=== PATIENT | female | born 1935 | race African-American/Black ===

== ENCOUNTER 2017-10-10 08:52 | Inpatient (IN) | payer MEDICARE, MEDICAID ==
[2017-10-10 09:06] LABS: #Basophils 0.1 thou/uL (0.0-0.2); #Eosinphils 0.4 thou/uL (0.0-0.7); #Lymphocytes 2.3 thou/uL (1.20-3.40); #Monocytes 0.9 thou/uL (0.11-0.59); #Neutrophils 5.4 thou/uL (1.40-6.50); %Basophils 0.7 % (0.0-1.0); %Eosinophils 4.1 % (0.0-10.0); %Lymphocytes 25.6 % (21.0-51.0); %Monocytes 9.6 % (0.0-10.0); Hemoglobin 12.5 g/dL (12.0-16.0); Mean Corpuscular HGB CONC 32.6 g/dL (32.0-36.0); Mean Corpuscular Hemoglobin 31.6 pg (27.0-31.0); Mean Corpuscular Volume 96.9 fl (81.0-99.0); Platelet Count 227 thou/uL (130-400); RBC Distribution Width 12.2 % (11.5-14.5); Red Blood Cell (RBC) Count 3.96 mill/uL (4.20-5.40)
[2017-10-10 09:15] LABS: INR-International Normal Ratio 1.1; PTT 27.9 SEC (22.9-36.1)
[2017-10-10] MEDS ORDERED: Lorazepam 2 MG/ML VIAL ONE ×2 (09:15→09:22)
[2017-10-10 09:20] LABS: ALT (SGPT) 7 U/L (8-55); AST (SGOT) 13 U/L (5-34); Alkaline Phosphatase 57 U/L (40-150); Anion Gap 13 mmol/L (10-20); BUN (Urea Nitrogen) 10 mg/dL (9.8-20.1); Bilirubin, Total 0.6 mg/dL (0.2-1.2); Calc. Creatinine Clearance 0 mL/min (70-130); Calcium 9.5 mg/dL (7.8-10.44); Carbon Dioxide 25 mmol/L (23-31); Chloride 104 mmol/L (98-107); Estimated GFR-MDRD 72; Globulin 2.8 g/dL (2.4-3.5); Glucose 104 mg/dL (83-110); Potassium 4.5 mmol/L (3.5-5.1); Protein, Total 6.8 g/dL (6.0-8.3); Sodium 137 mmol/L (136-145)
--- NOTE | 2017-10-10 09:21 | CT ---
CT HEAD NONCONTRAST: History: Altered mental status. Comparison: 02-06-16 FINDINGS: There is no evidence of acute intracranial hemorrhage or infarct. Large area of encephalomalacia thro ughout the right frontal and temporal lobes is similar in appearance to the previous exam. Chronic is chemic small vessel disease and prominent diffuse cortical atrophy are again demonstrated. There is d ystrophic calcification at each basal ganglia. No mass effect or shift of midline structures. Visuali zed paranasal sinuses remain well aerated. 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 No acute intracranial abnorma lities are demonstrated on noncontrast CT head. Findings were called to Dr. Arce in the Emergency Department at 0901 hours. Code CR POS: LOIDA
[2017-10-10 09:24] LABS: CKMB 5.7 ng/mL (0-6.6); Troponin I 0.026 ng/mL (< 0.028)
[2017-10-10] MEDS ORDERED: Propofol 1,000 MG/100 ML VIAL IV ONE (09:24)
[2017-10-10 09:48] LABS: Actual Bicarbonate (HCO3a) 23.6 mEq/L (22-26); Base Excess (BEa) -0.8 mEq/L (0 (+/-) 2.5); CO2 Tension 37.9 mmHg (35.0-45.0); Hemoglobin (Hb) 12.4 g/dL (12.0-16.0); pH, Arterial 7.41 (7.35-7.45)
[2017-10-10 09:49] LABS: ALV-art Gradient 91.825 (0-20); Analyzer IN Cardio ER; Calcium, Ionized 1.2 mmol/L (1.12-1.30); Puncture Site LBA
--- NOTE | 2017-10-10 11:21 | CT ---
CT ANGIOGRAM OF THE HEAD WITH CONTRAST CT ANGIOGRAM OF THE NECK WITH CONTRAST: HISTORY: Altered mental status and seizures in 82 year old female. TECHNIQUE: IV injection of 100 mL of Isovue 370. Arterial bolus chasing technique scan performed from aortopulmonic window to vertex of head. Coronal and sagittal 3D MIP reconstructions. The patient was scanned in the RPO right lateral decubitus position. Furthermore, according to the C T technologist, the only IV access available was a right external jugular vein catheter, which was po wer injected, resulting in rupture of that external jugular vein, resulting in a large collection of extravasated contrast media within the soft tissues of the right neck. The injection and the study o ccurred prior to any radiologists' knowledge of this case. Coronal and sagittal 3D MIP reconstructio ns. Dr. Salinas reported this STAT stroke activation CTA result to Dr. Ashlie Arce at approximately 9:38 a.m. on 10/10/17. FINDINGS: There is a large collection of very dense extravasated contrast material in the soft tissues of the r ight neck, centered around the right sternocleidomastoid muscle. This causes severe streak artifact. The great vessels are tortuous. AORTIC ARCH: No aneurysm or dissection. BRACHIOCEPHALIC: No high-grade stenosis. RIGHT SUBCLAVIAN: Proximal portion is patent. Difficult to evaluate the mid portion because of severe streak artifact from the adjacent extravasated contrast bolus I the soft tissues of the right neck. There is one par ticular image that shows a central filling defect that is suggestive of a small thrombus, but this is uncertain. LEFT SUBCLAVIAN: No high-grade stenosis. RIGHT COMMON CAROTID: No high-grade stenosis. LEFT COMMON CAROTID: No high-grade stenosis. RIGHT INTERNAL CAROTID: Total occlusion a few millimeters distal to its origin. Heavy calcifications slightly distal to this occlusion. More distally, there is faint contrast in the right carotid siphon due to retrograde flow from collat eral flow via the [place]. LEFT INTERNAL CAROTID: No high-grade stenosis. The lumen of the carotid siphons is difficult to evaluate because of the surrounding dense, heavy ath erosclerotic calcifications. There is very little contrast material in the right carotid siphon, but there is good contrast opacification of the left carotid siphon. The bilateral A2 segments of the a nterior cerebral arteries are within normal limits in caliber. There is a patent anterior communicat ing artery. The A2 segment of the right anterior cerebral artery is diffusely narrower in caliber co mpared to the left A1 segment. The same is true of the right M1 segment and its branches compared to the contralateral left, of the middle cerebral arteries. There is a large old right frontotemporoparietal region of encephalomalacia and gliosis representing a large old infarction. The proximal branches of the bilateral middle cerebral arteries appear to be grossly currently patent. The right vertebral artery is dominant over the left. There is heavily c alcified plaque at the origin of the right vertebral artery, probably causing severe stenosis. The r ight vertebral artery is dominant. The left vertebral artery is slightly diminutive. Heavily calcif ied plaque at the proximal intracranial portion of the left vertebral causing high-grade stenosis. No high-grade focal short-segment acquired stenosis identified involving the bilateral posterior cere bral arteries. IMPRESSION: 1. Extravasation of much of the injected contrast material (from right external jugular vein cathete r) in the superficial soft tissues of the right neck. 2. Chronic occlusion of the right internal carotid artery a short distance from its origin. 3. The right anterior circulation is supplied via collateral flow from the contralateral left [place] via a patent anterior communicating artery. 4. Large old right cerebral infarction in the right middle cerebral artery territory. 5. Severe stenosis at origin of right vertebral artery and at proximal intracranial segment of left vertebral artery. POS: LOIDA
--- NOTE | 2017-10-10 13:20 | RAD ---
RADIOGRAPH CHEST 1 VIEW: Date: 10-10-17 Time: 12:19 P.M. HISTORY: 82-year-old female found unresponsive, status post intubation. COMPARISON: The most recent chest radiograph is from 06-05-15. FINDINGS: Again noted are the signs of previous CABG. An endotracheal tube has now been placed, with distal tip 1.5 cm superior to the indio, directed at the right main stem bronchus. NG tube has been placed whi ch travels inferior to the diaphragm, distal tip outside of the field of view. The lungs remain bilat erally clear. No pulmonary edema. No pneumothorax. IMPRESSION: 1. Status post intubation with endotracheal tube in the lower thoracic trachea. 2. Nasogastric tube placement. 3. No acute cardiopulmonary findings. 4. Status post coronary artery bypass graft surgery. TRESA POS: LOIDA
--- NOTE | 2017-10-10 13:51 | PDOC.FPRHP ---
- History of Present Illness Chief Complaint: AMS History of Present Illness: 82 y/o w PMHx of CAD s/p CABG and CVA w residual L sided deficits who presents from [facility] due to AMS. Per [facility] report she was found with decreased responsiveness and was responsive only to pain so she was brought to the ED. Per the patient's daughter, she had a phone call with one of her daughters this AM around 6:30 and was acting completely normal. Her baseline mental status is A&Ox4. She had multiple seizures in the ED that were described as her deviating her body to left associated with twitching. These were terminated with ativan. The patient continued drooling and not protecting her airway and so she was intubated in the ED. ED Course: The pt was evaluated in the ED by Dr. Arce and was given ativan 1mg x2 for seizures, intubated due to patient not protecting her airway, given rocuronium 50mg x2, etomidate 10mg, propofol 40mg, and put on propofol gtt. The patient had multiple IV's that infiltrated and a central line was attempted , but was unsuccessful in the L and R IJ. Access was obtained in the ED via IO in the L arm. - Allergies/Adverse Reactions Allergies Allergy/AdvReac Type Severity Reaction Status Date / Time No Known Allergies Allergy Verified 01/17/14 21:52 - Home Medications Medication Instructions Recorded Confirmed Type Nitroglycerin [Nitrostat] 0.4 mg SL ASDIR PRN 02/21/13 01/17/14 History Potassium Chloride [K-Dur] 20 meq PO DAILY 02/21/13 01/17/14 History traMADol HCl [Ultram] 1 - 2 tab PO Q6H PRN #30 tab 02/21/13 01/17/14 Rx Aspirin [Aspirin EC] 81 mg PO DAILY 03/12/13 01/17/14 History Cyanocobalamin (Vitamin B-12) 500 mcg PO DAILY 03/12/13 01/17/14 History [B-12] Insulin Glargine [Lantus Vial] 15 units SC HS 03/12/13 01/17/14 History Trihexyphenidyl [Artane] 2 mg PO TID 03/12/13 01/17/14 History Simvastatin [Zocor] 40 mg PO HS #0 tab 03/17/13 01/17/14 Rx Aluminum & Magnesium Hydroxide 30 ml PO Q6H PRN 05/27/13 01/17/14 History [Maalox] Furosemide [Lasix] 40 mg PO DAILY #0 11/14/13 01/17/14 Rx Cholecalciferol (Vitamin D3) 5,000 unit PO DAILY 01/05/14 01/17/14 History [Vitamin D] HYDROcodone Bit/APAP 5/325 [[place]] 1 - 2 tab PO Q4HR PRN 01/05/14 01/17/14 History Isosorbide Mononitrate [Imdur] 60 mg PO DAILY #0 tab 01/08/14 01/17/14 Rx Lidocaine 5% Patch [Lidoderm 5% 1 patch TD 1800 #0 patch 01/23/14 Rx Patch] cloNIDine [Catapres] 0.1 mg PO BID #0 tab 01/23/14 Rx cloNIDine [Catapres] 0.1 mg PO Q4H PRN #0 tab 01/23/14 Rx hydrALAZINE [Apresoline] 75 mg PO TID #0 tab 01/23/14 Rx sitaGLIPtin Phosphate [Januvia] 50 mg PO DAILY #0 01/23/14 01/17/14 Rx - History PMHx: 1. 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 HFpEF 3. CKD 3 4. DM2 5. CAD s/p CABG in 1996 6. HLD 7. HTN 8. Anemia 9. Glaucoma 10. Depression PSHx: 1. CABG 1996 2. Hysterectomy 3. Cholecystectomy 4. Appendectomy 5. Carotid Endarterectomy 6. L kneecap repair x2 7. Bilateral TKR 8. Cataract sx FHx: DM on maternal side, Heart disease on paternal side Social: Resides at [facility], No tobacco, EtOH, or drug use. - Review of Systems ROS unobtainable: due to endotracheal tube - Vital signs BP: 166/104 HR: 73 RR: 15 Tmax: 99.5 Pox: 100% on Ventilator Wt: 60kg - Physical Exam -Constitutional: Intubated and mechanically ventilated on sedation -HEENT: Normocephalic, atraumatic, Bilateral conjunctival injection, PERRL, MMM, ET tube in place in the mouth Neck: trachea midline, no LAD, no bruits -Heart: RRR, 2/6 systolic murmur, no peripheral edema, 2+ radial and pedal pulses Lungs: CTAB (on ventilator), good air movement, no rales/rhonchi, no wheezing Abdomen: soft, non-tender, bowel sounds present, no masses/distention -Musculoskeletal: contracture of LUE, decreased muscle tone bilaterally -Neurological: unable to fully assess due to intubated on sedation Skin: good turgor, capillary refill <2 seconds FMR H&P: Results - Labs Result Diagrams: 10/10/17 08:57 10/10/17 08:57 Lab results: WBC 9.0 thou/uL (4.8-10.8) 10/10/17 08:57 Hgb 12.5 g/dL (12.0-16.0) 10/10/17 08:57 Hct 38.4 % (36.0-47.0) 10/10/17 08:57 MCV 96.9 fl (81.0-99.0) 10/10/17 08:57 Plt Count 227 thou/uL (130-400) 10/10/17 08:57 Neutrophils % 60.0 % (42.0-75.0) 10/10/17 08:57 ABG pH 7.41 (7.35-7.45) 10/10/17 09:45 ABG pCO2 37.9 mmHg (35.0-45.0) 10/10/17 09:45 ABG pO2 146.0 mmHg (80.0-100.0) H 10/10/17 09:45 Sodium 137 mmol/L (136-145) 10/10/17 08:57 Potassium 4.5 mmol/L (3.5-5.1) 10/10/17 08:57 Chloride 104 mmol/L (98-107) 10/10/17 08:57 Carbon Dioxide 25 mmol/L (23-31) 10/10/17 08:57 BUN 10 mg/dL (9.8-20.1) 10/10/17 08:57 Creatinine 0.90 mg/dL (0.6-1.1) 10/10/17 08:57 Glucose 104 mg/dL (83-110) 10/10/17 08:57 Calcium 9.5 mg/dL (7.8-10.44) 10/10/17 08:57 Total Bilirubin 0.6 mg/dL (0.2-1.2) 10/10/17 08:57 AST 13 U/L (5-34) 10/10/17 08:57 ALT 7 U/L (8-55) L 10/10/17 08:57 Alkaline Phosphatase 57 U/L (40-150) 10/10/17 08:57 CK-MB (CK-2) 5.7 ng/mL (0-6.6) 10/10/17 08:57 Serum Total Protein 6.8 g/dL (6.0-8.3) 10/10/17 08:57 Albumin 4.0 g/dL (3.4-4.8) 10/10/17 08:57 - EKG Interpretation EKG: NSR, with occasional PVC - Radiology Interpretation CT scan - head Status: report reviewed by me Additional comment: Old large R MCA infarct seen along with chronic changes. No acute intracranial hemorrhage or infarct noted. Chest x-ray Status: report reviewed by me Additional comment: No acute cardiopulmonary findings, ET tube, NG tube in place FMR H&P: A/P - Problem List (1) Encephalopathy Current Visit: Yes Status: Acute Code(s): G93.40 - ENCEPHALOPATHY, UNSPECIFIED (2) Seizure Current Visit: Yes Status: Acute Code(s): R56.9 - UNSPECIFIED CONVULSIONS (3) Hypertensive emergency Current Visit: Yes Status: Acute Code(s): I16.1 - HYPERTENSIVE EMERGENCY (4) UTI (urinary tract infection) Current Visit: Yes Status: Acute Qualifiers: Urinary tract infection type: acute cystitis Hematuria presence: without hematuria Qualified Code(s): N30.00 - Acute cystitis without hematuria (5) H/O: CVA (cerebrovascular accident) Current Visit: Yes Status: Acute Code(s): Z86.73 - PRSNL HX OF TIA (TIA), AND CEREB INFRC W/O RESID DEFICITS (6) HTN (hypertension) Current Visit: Yes Status: Acute Code(s): I10 - ESSENTIAL (PRIMARY) HYPERTENSION Qualifiers: Hypertension type: essential hypertension Qualified Code(s): I10 - Essential (primary) hypertension (7) HLD (hyperlipidemia) Current Visit: Yes Status: Acute Code(s): E78.5 - HYPERLIPIDEMIA, UNSPECIFIED (8) DM2 (diabetes mellitus, type 2) Current Visit: Yes Status: Acute Qualifiers: Diabetes mellitus regional intermodal truck driver insulin use: with regional intermodal truck driver use Diabetes mellitus complication status: with unspecified complications Qualified Code(s) : E11.8 - Type 2 diabetes mellitus with unspecified complications; Z79.4 - regional intermodal truck driver (current) use of insulin; Z79.4 - regional intermodal truck driver (current) use of insulin; Z79.4 - custodial (current) use of insulin; Z79.4 - custodial (current) use of insulin (9) CAD (coronary artery disease), [place] coronary artery Current Visit: Yes Status: Acute Code(s): I25.10 - ATHSCL HEART DISEASE OF [place] CORONARY ARTERY W/O ANG PCTRS Qualifiers: [place] vs. transplanted heart: [place] heart Associated angina: angina presence unspecified Qualified Code(s): I25.10 - Atherosclerotic heart disease of [place] coronary artery without angina pectoris (10) (HFpEF) heart failure with preserved ejection fraction Current Visit: Yes Status: Acute Code(s): I50.30 - UNSPECIFIED DIASTOLIC ( CONGESTIVE) HEART FAILURE - Plan Encephalopathy Suspect CVA as the cause. Other differential diagnoses include UTI, HTN Emergency. Patient presented with AMS. Per [facility] report she was found responsive only to pain. The ED reported that she was awake, but with left sided neglect and deviation of the eyes to the L as well as non-verbal with drooling. She had multiple seizures while in the ED requiring ativan. The patient has an OOH DNR signed, however, this was not sent over from the NH. The ED made multiple attempts to get in touch with the NH to get paperwork sent over, but were unable , so the patient was intubated in the ED due to failure to protect her airway. The daughter came in later and had a discussion with palliative care, and the decision was made to consider extubating her tomorrow once her other children arrived. -Continue mechanical ventilation overnight -Sedation with propofol -The patient has poor IV access at this time and so will have nurses in the unit attempt to get a midline -The option of an MRI was discussed with the daughter, but she elected not to get it at this time as it would not exchange teller -Aspirin for concern for CVA -Pulm has been consulted, appreciate recs HTN Emergency BP was initially elevated with the highest recorded BP in the ED being 270/159. It remained persistently elevated. The patient was started on a cardene gtt for just a few minutes once she got IV access and her BP dropped very quickly to 96/61. The cardene was stopped at that point. -Monitor BP closely -Hold cardene gtt at this time Seizures The patient had multiple seizures while in the ED that were treated with ativan. She had no h/o seizure d/o. -Ativan prn seizures -Kera Acute UTI UA showed 4+ bacteria and nitrites. Patient is baseline incontinent. -Rocephin day 1 -Urine cx and sensitivities h/o CVA Patient has had multiple CVA's with residual L sided deficits. -Aspirin HLD -Restart home meds once taking PO CAD -Aspirin DM2 -SSI -Accuchecks q6h -Will hold home lantus as pt is NPO at this time HFpEF -Will avoid overloading pt. No fluids needed at this time. VTE ppx: Lovenox Code Status: DNR Disposition/LOS: Admit to CCU, length of stay likely greater than 2 days FMR H&P: Upper Level - Pertinent history 82 yo female with history of CAD, carotid endarterectomy, CVA with residual left hemiparesis, HTN, presented from [facility] with altered mentation. Normally she is AAOx4 when she was found this morning only responsive to pain. In the ER she had multiple seizures and was given ativan 1mg twice. There was concern for airway protection so she was intubated. Venous access was difficult to obtain so IO to left humerus was obtained. - Pertinent findings Resp: intubated, CTAb Card: RRR, S1, S2, no murmur Ext: L arm IO, mild tremor of right hand and foot - Plan Date/Time: 10/10/17 1345 IJulian DO, have evaluated this patient and agree with findings/plan as outlined by pharmacy intern resident. Pertinent changes/additions are listed here. 1. HTN emergency with suspected CVA peripheral access was obtained in ER before move to the floor, will start cardene drip for BP control <180SBP negative CT brain discuss with family goals of care to determine the need for further evaluation Admit to CCU 2. Hx CVA with residual left hemiparesis 3. Hx CABG 4. HTN systolic in the 200s, cardene drip 5. CKD III continue to monitor, stable at this time 6. DM2 continue to monitor with goal glucose of 140-180 7. pEFHF Attending Addendum - Attending Addendum Date/Time: 10/10/17 1608 I personally evaluated the patient and discussed the management with Drs. Dhaliwal and Shukri. I agree with the History, Examination, Assessment and Plan documented above with any addition or exceptions noted below. Discussed care plan with daughter who is present. We will delay extubation until other family is present. IV antibiotics initiated for UTI. BP is controlled now. CT did not demonstrate cerebral mass or hemorrhage. Suspect an ischemic CVA.
[2017-10-10 14:12] LABS: Bilirubin Negative (Negative); Blood, Urine Small (Negative); Clarity CLOUDY (Clear); Glucose, Urine (Dipstick) Negative (Negative); Leukocyte Negative (Negative); Nitrite Positive (Negative); Protein, Urine (Dipstick) Negative (Neg-Trace); Specific Gravity, Urine 1.016 (1.002-1.036); Urobilinogen 0.2 mg/dL (0.2-1.0); pH, Urine 7.5 (5.0-9.0)
[2017-10-10 14:23] LABS: Bacteria/HPF 4+ HPF (None Seen); Hyaline Casts/LPF 0-3 HYALINE CAST LPF (0-3 Hyaline); Pathc Cast-AUWi Flag 0.29 (0-2.49); RBC/HPF 0-3 HPF (0-3); Squamous Epithelial 0-3 HPF (0-3); WBC/HPF 0-3 HPF (0-3)
[2017-10-10] MEDS ORDERED: ISOVUE-370 76%-LOCM 1 ML ONE (14:47)
[2017-10-10] MEDS ORDERED: Lorazepam 2 MG/ML VIAL SLOW IVP PRN ×2 (15:21→15:49)
[2017-10-10] MEDS ORDERED: Dextrose 5% in Water 1,000 ML IV PRN (15:21)
[2017-10-10] MEDS ORDERED: Dextrose 50% Abboject 50 ML SYRINGE SLOW IVP PRN (15:21)
[2017-10-10] MEDS ORDERED: Ventilator Sedation Protocol 1 EACH FS ONE (15:21)
[2017-10-10] MEDS ORDERED: HumaLOG 300 UNITS/3 ML VIAL SC PRN (15:21)
[2017-10-10] MEDS ORDERED: cefTRIAXone\\ROCEPHIN 1 GM in Sodium Chloride 0.9% 100 ML IVPB SCH (15:30)
[2017-10-10 15:45] VITALS: BMI 20.5
[2017-10-10] MEDS ORDERED: Labetalol HCl 100 MG/20 ML VIAL SLOW IVP PRN (15:48)
[2017-10-10] MEDS ORDERED: fentaNYL Citrate/PF 2,000 MCG in Sodium Chloride 0.9% 60 ML IV SCH (15:49)
[2017-10-10] MEDS ORDERED: Morphine 4 MG/ML VIAL SLOW IVP PRN (15:49)
[2017-10-10] MEDS ORDERED: Propofol BOLUS 1,000 MG/100 ML VIAL IV PRN (15:49)
[2017-10-10] MEDS ORDERED: Fentanyl BOLUS 250 ML IVPB PRN (15:49)
[2017-10-10] MEDS ORDERED: Propofol 1,000 MG/100 ML VIAL IV PRN (15:49)
[2017-10-10] MEDS ORDERED: Prevnar 13-Val Conj/PF 0.5 ML SYRINGE IM ONE (16:00)
[2017-10-10] MEDS: cefTRIAXone\\ROCEPHIN 1 GM, Syringe 0.4 ML in Sterile Water 9.6 ML SLOW IVP SCH (16:19)
[2017-10-10] MEDS ORDERED: hydrALAZINE 25 MG TAB PO SCH (16:45)
[2017-10-10] MEDS ORDERED: cloNIDine 0.1 MG TAB PO SCH (16:45)
[2017-10-10] MEDS: Sodium Chloride 0.9% 1,000 ML IV SCH (18:36)
--- NOTE | 2017-10-10 21:26 | CON ---
DATE OF CONSULTATION: 10/10/2017 HISTORY OF PRESENT ILLNESS: An 82-year-old female brought to the ER via longterm with acute ment al status change, hypertensive, and seizures. She was seen by the ER physician, Dr. Arce, who ap parently gave her Ativan to control the seizures. When she got further encephalopathic difficulty breathing, she was intubated 40 of propofol, etomidat e 10 mg, paralytic, fentanyl and 5 mg of Cardene was given. After she was intubated, the doctor dana roth and the family arrives, she is at DO NOT INTUBATION and now is a DNR. I am told to attempt to put a central line in multiple times to make one successful. She is now in t he ICU on the vent, intubated with a 7.5 tube which appears to be sitting at the level of the ind[place] or just proximal right main stem bronchus. This is going to be pulled back. There is no family memb ers present at the bedside. She has been in and out here multiple times. To note, additional inform ation we get from the longterm is that the patient has previous right-sided cerebrovascular accid ent with left-sided hemiparesis. In fact, a CT of the head done did show an old infarct distribution of the right middle cerebral circulation. She had a CT angio of the neck done, which shows evidence of a right internal carotid artery occlusion. Otherwise, no other high grade stenosis was seen. It is unclear at this time her level of activity. PAST MEDICAL HISTORY: Pertinent for coronary artery disease, history of CVA, hypertension, diabetes, GI bleed, anemia. PAST SURGICAL HISTORY: Left carotid surgery, hysterectomy, appendix, gallbladder, CABG, cataract, an d multiple knee surgeries. MEDICATIONS: From the longterm has included a long list of medicine including aspirin, Lasix 40, hydrocodone, Lantus 15 units, Imdur 60, nitroglycerin p.r.n., Zocor 40, Catapres 0.1 twice a day, hy dralazine 75 three times a day, Januvia 50 a day, p.r.n. pain medicine. ALLERGIES: None. SOCIAL HISTORY: Tobacco never smoked. She has apparently had immunization for substance abuse. REVIEW OF SYSTEMS: Unobtainable. PHYSICAL EXAMINATION: VITAL SIGNS: Sats are 94, pulse 86, blood pressure 130/75, respiration rate 16. NEUROLOGIC: She is encephalopathic. She moves her right side, not the left side. CHEST: Decreased breath sounds, no wheezing. CARDIAC: Normal S1, S2, no gallops. ABDOMEN: Soft. NEUROLOGIC: As noted. EXTREMITIES: No edema. LABORATORY DATA: White count is 9000, H and H 12 and 38, platelet count 227, PO2 was 140, pCO2 . Electrolytes are normal. Chest x-ray was unremarkable. No pneumothorax was seen. IMPRESSION: 1. New onset seizure activity, receiving Ativan. 2. Previous cerebrovascular accident with left hemiparesis. 3. Hypertension. 4. Coronary artery disease. 5. Advanced age. 6. DO NOT RESUSCITATE. PLAN: She truly was seizing multiple times. I may initiate Keppra 5 mg twice a day. Otherwise, sup portive care. We will try and wean when family arrives. Control blood pressure, supportive care. Continue home medication. Forty-five minutes critical care time.
[2017-10-10] MEDS: Famotidine 40 MG/4 ML VIAL SLOW IVP SCH (21:59)
[2017-10-10] MEDS: hydrALAZINE 25 MG TAB PO SCH (22:21)
[2017-10-10] MEDS: cloNIDine 0.1 MG TAB PO SCH (22:21)
[2017-10-11] MEDS: Dextrose 50% Abboject 50 ML SYRINGE SLOW IVP PRN ×2 (01:52→06:36)
[2017-10-11 05:35] LABS: Anion Gap 11 mmol/L (10-20); BUN (Urea Nitrogen) 8 mg/dL (9.8-20.1); Calc. Creatinine Clearance 56 mL/min (70-130); Calcium 8.7 mg/dL (7.8-10.44); Carbon Dioxide 24 mmol/L (23-31); Chloride 106 mmol/L (98-107); Estimated GFR-MDRD Greater than 90; Glucose 70 mg/dL (83-110); Potassium 3.8 mmol/L (3.5-5.1); Sodium 137 mmol/L (136-145)
[2017-10-11 05:48] LABS: #Basophils 0.1 thou/uL (0.0-0.2); #Eosinphils 0.1 thou/uL (0.0-0.7); #Lymphocytes 1.9 thou/uL (1.20-3.40); #Monocytes 0.8 thou/uL (0.11-0.59); #Neutrophils 7.4 thou/uL (1.40-6.50); %Basophils 0.6 % (0.0-1.0); %Eosinophils 1.3 % (0.0-10.0); %Lymphocytes 18.4 % (21.0-51.0); %Monocytes 7.4 % (0.0-10.0); %Neutrophils 72.4 % (42.0-75.0); Hemoglobin 11.6 g/dL (12.0-16.0); Mean Corpuscular HGB CONC 33.5 g/dL (32.0-36.0); Mean Corpuscular Hemoglobin 32.7 pg (27.0-31.0); Mean Corpuscular Volume 97.6 fl (81.0-99.0); Mean Platelet Volume 9.4 fL (7.4-10.4); Platelet Count 251 thou/uL (130-400); RBC Distribution Width 12.5 % (11.5-14.5); Red Blood Cell (RBC) Count 3.55 mill/uL (4.20-5.40); White Blood Cell (WBC) Count 10.2 thou/uL (4.8-10.8)
[2017-10-11] MEDS: Enoxaparin Sodium 40 MG/0.4 ML SYRINGE SC SCH (08:58)
[2017-10-11] MEDS ORDERED: Aspirin 300 MG Suppository PR SCH (09:00)
--- NOTE | 2017-10-11 09:01 | PDOC.FM ---
- Subjective Subjective: Patient was moved to the floor overnight. Patient is able to talk this morning and oriented to month, but mostly is asking to move on to her side to sleep. - Objective MAR Reviewed: Yes Vital Signs & Weight: Vital Signs (12 hours) Temp Pulse Resp BP Pulse Ox 10/11/17 08:00 98.5 F 73 16 97 10/11/17 07:28 98.5 F 73 16 140/87 97 10/11/17 03:50 99.3 F 78 18 108/69 99 10/10/17 23:05 98.8 F 71 18 96 10/10/17 23:00 98.8 F 71 18 118/62 96 Weight Weight 61.1 kg Most Recent Monitor Data Heart Rate from ECG 79 NIBP 112/79 NIBP BP-Mean 84 Respiration from ECG 17 SpO2 98 I&O: 10/10/17 10/11/17 10/12/17 06:59 06:59 06:59 Intake Total 312 Output Total 1840 Balance -1528 Result Diagrams: 10/11/17 05:11 10/11/17 05:11 <Julian Watt M - Last Filed: 10/11/17 08:59> - Objective Vital Signs & Weight: Vital Signs (12 hours) Temp Pulse Resp BP Pulse Ox 10/11/17 11:27 98.2 F 70 18 123/58 L 99 10/11/17 08:00 98.5 F 73 16 97 10/11/17 07:28 98.5 F 73 16 140/87 97 10/11/17 03:50 99.3 F 78 18 108/69 99 Weight Weight 61.1 kg Most Recent Monitor Data Heart Rate from ECG 79 NIBP 112/79 NIBP BP-Mean 84 Respiration from ECG 17 SpO2 98 I&O: 10/10/17 10/11/17 10/12/17 06:59 06:59 06:59 Intake Total 312 Output Total 1840 Balance -1528 Result Diagrams: 10/11/17 05:11 10/11/17 05:11 <Prasanna Jones A - Last Filed: 10/11/17 14:35> Phys Exam - Physical Examination HEENT: moist MMs ptosis of left eye lid Respiratory: no wheezing, clear to auscultation bilateral Cardiovascular: RRR, no significant murmur Gastrointestinal: soft, no distention Musculoskeletal: no edema, pulses present decreased movement of left side Deviation from normal: unable to establish baseline, but patient oriented to month <Julian Watt - Last Filed: 10/11/17 08:59> Dx/Plan (1) Encephalopathy Code(s): G93.40 - ENCEPHALOPATHY, UNSPECIFIED Status: Acute Plan: suspected to be due to ischemic stroke, will discuss with family regarding goals of care; palliative consulted from ER (2) Seizure Code(s): R56.9 - UNSPECIFIED CONVULSIONS Status: Acute Plan: started on keppra suspected to be 2/2 to stroke (3) Hypertensive emergency Code(s): I16.1 - HYPERTENSIVE EMERGENCY Status: Acute Plan: resolved, cardene drip stopped allow for some permissive HTN (4) UTI (urinary tract infection) Status: Acute QualifierTitle: Urinary tract infection type: acute cystitis Hematuria presence: without hematuria Qualified Code(s): N30.00 - Acute cystitis without hematuria Plan: currently being treated with rocephin, await cultures with prelim of gm neg rods (5) H/O: CVA (cerebrovascular accident) Code(s): Z86.73 - PRSNL HX OF TIA (TIA), AND CEREB INFRC W/O RESID DEFICITS Status: Acute (6) HTN (hypertension) Code(s): I10 - ESSENTIAL (PRIMARY) HYPERTENSION Status: Acute QualifierTitle: Hypertension type: essential hypertension Qualified Code( s): I10 - Essential (primary) hypertension (7) HLD (hyperlipidemia) Code(s): E78.5 - HYPERLIPIDEMIA, UNSPECIFIED Status: Acute (8) DM2 (diabetes mellitus, type 2) Status: Acute QualifierTitle: Diabetes mellitus stock broker supervisor insulin use: with stock broker supervisor use Diabetes mellitus complication status: with unspecified complications Qualified Code(s): E11.8 - Type 2 diabetes mellitus with unspecified complications; Z79.4 - coating machine operator helper (current) use of insulin; Z79.4 - coating machine operator helper ( current) use of insulin; Z79.4 - intermediate (current) use of insulin; Z79.4 - coating machine operator helper (current) use of insulin Plan: continue to monitor with accuchecks has been in appropriate range during hospitalization. (9) CAD (coronary artery disease), [place] coronary artery Code(s): I25.10 - ATHSCL HEART DISEASE OF [place] CORONARY ARTERY W/O ANG PCTRS Status: Acute QualifierTitle: [place] vs. transplanted heart: [place] heart Associated angina: angina presence unspecified Qualified Code(s): I25.10 - Atherosclerotic heart disease of [place] coronary artery without angina pectoris (10) (HFpEF) heart failure with preserved ejection fraction Code(s): I50.30 - UNSPECIFIED DIASTOLIC (CONGESTIVE) HEART FAILURE Status: Acute <Julian Watt - Last Filed: 10/11/17 08:59> (1) Encephalopathy Code(s): G93.40 - ENCEPHALOPATHY, UNSPECIFIED Status: Acute (2) Seizure Code(s): R56.9 - UNSPECIFIED CONVULSIONS Status: Acute (3) Hypertensive emergency Code(s): I16.1 - HYPERTENSIVE EMERGENCY Status: Acute (4) UTI (urinary tract infection) Status: Acute Qualifiers: Urinary tract infection type: acute cystitis Hematuria presence: without hematuria Qualified Code(s): N30.00 - Acute cystitis without hematuria (5) H/O: CVA (cerebrovascular accident) Code(s): Z86.73 - PRSNL HX OF TIA (TIA), AND CEREB INFRC W/O RESID DEFICITS Status: Acute (6) HTN (hypertension) Code(s): I10 - ESSENTIAL (PRIMARY) HYPERTENSION Status: Acute Qualifiers: Hypertension type: essential hypertension Qualified Code(s): I10 - Essential (primary) hypertension (7) HLD (hyperlipidemia) Code(s): E78.5 - HYPERLIPIDEMIA, UNSPECIFIED Status: Acute (8) DM2 (diabetes mellitus, type 2) Status: Acute Qualifiers: Diabetes mellitus assisted insulin use: with assisted use Diabetes mellitus complication status: with unspecified complications Qualified Code(s) : E11.8 - Type 2 diabetes mellitus with unspecified complications; Z79.4 - coating machine operator helper (current) use of insulin; Z79.4 - intermediate (current) use of insulin; Z79.4 - coating machine operator helper (current) use of insulin; Z79.4 - coating machine operator helper (current) use of insulin (9) CAD (coronary artery disease), [place] coronary artery Code(s): I25.10 - ATHSCL HEART DISEASE OF [place] CORONARY ARTERY W/O ANG PCTRS Status: Acute Qualifiers: [place] vs. transplanted heart: [place] heart Associated angina: angina presence unspecified Qualified Code(s): I25.10 - Atherosclerotic heart disease of [place] coronary artery without angina pectoris (10) (HFpEF) heart failure with preserved ejection fraction Code(s): I50.30 - UNSPECIFIED DIASTOLIC (CONGESTIVE) HEART FAILURE Status: Acute <Prasanna Jones - Last Filed: 10/11/17 14:35> Attending Addendum - Attending Addendum Date/Time: 10/11/17 2630 I personally evaluated the patient and discussed the management with Dr. Watt I agree with the History, Examination, Assessment and Plan documented above with any addition or exceptions noted below. She seems to be rapidly back to mental baseline without new neuro deficit, so I suspect the mental status change and seizure activity was related to her Hypertensive emergency rather than from a CVA also this remains a possibility. Family is appreciative of care. <Prasanna Jones - Last Filed: 10/11/17 14:35>
[2017-10-11] MEDS: Famotidine 40 MG/4 ML VIAL SLOW IVP SCH ×2 (09:02→22:12)
[2017-10-11] MEDS: Sodium Chloride 0.9% 1,000 ML IV SCH ×2 (09:45→16:23)
--- NOTE | 2017-10-11 10:08 | PRG ---
DATE OF SERVICE: 10/11/2017 The patient was extubated yesterday. She was intubated for post-seizure, encephalopathy and respirat ory failure. PHYSICAL EXAMINATION: VITAL SIGNS: Sats are 97% on room air, temperature 98, pulse 73, blood pressure 140/87. GENERAL: She is awake, responsive, left-sided paralysis. CHEST: No wheezing or crackles. CARDIAC: Normal S1, S2, no gallops. ABDOMEN: Soft, no masses. Electrolytes are normal. White count is normal. Cultures are growing gram negative denis from the urine, probably Escherichia coli. IMPRESSION: 1. Status post seizure activity. 2. Cerebrovascular accident with a urinary tract infection. PLAN: Await cultures on the UTI. Thereafter, deescalate antibiotics. Continue anti-seizure medicat ion. Pulmonary Critical Care will follow at a distance. Please call as needed.
[2017-10-11] MEDS: cefTRIAXone\\ROCEPHIN 1 GM, Syringe 0.4 ML in Sterile Water 9.6 ML SLOW IVP SCH (16:22)
[2017-10-11] MEDS: hydrALAZINE 20 MG/ML VIAL SLOW IVP PRN (22:19)
[2017-10-12] MEDS ORDERED: Acetaminophen 650 MG in Premix Bag 1 BAG IVPB PRN (03:35)
[2017-10-12] MEDS: hydrALAZINE 20 MG/ML VIAL SLOW IVP PRN (04:23)
[2017-10-12 05:08] LABS: #Eosinphils 0.2 thou/uL (0.0-0.7); #Lymphocytes 1.9 thou/uL (1.20-3.40); #Monocytes 0.7 thou/uL (0.11-0.59); #Neutrophils 6.7 thou/uL (1.40-6.50); %Basophils 0.2 % (0.0-1.0); %Eosinophils 2.4 % (0.0-10.0); %Lymphocytes 19.6 % (21.0-51.0); %Monocytes 7.7 % (0.0-10.0); %Neutrophils 70.1 % (42.0-75.0); Hemoglobin 11.2 g/dL (12.0-16.0); Mean Corpuscular HGB CONC 33.2 g/dL (32.0-36.0); Mean Corpuscular Hemoglobin 31.7 pg (27.0-31.0); Mean Corpuscular Volume 95.3 fl (81.0-99.0); Mean Platelet Volume 8.2 fL (7.4-10.4); Platelet Count 214 thou/uL (130-400); RBC Distribution Width 12.3 % (11.5-14.5); Red Blood Cell (RBC) Count 3.53 mill/uL (4.20-5.40); White Blood Cell (WBC) Count 9.6 thou/uL (4.8-10.8)
[2017-10-12 05:33] LABS: Anion Gap 11 mmol/L (10-20); BUN (Urea Nitrogen) 8 mg/dL (9.8-20.1); Calc. Creatinine Clearance 51 mL/min (70-130); Calcium 8.5 mg/dL (7.8-10.44); Carbon Dioxide 21 mmol/L (23-31); Chloride 109 mmol/L (98-107); Estimated GFR-MDRD 84; Glucose 98 mg/dL (83-110); Potassium 3.5 mmol/L (3.5-5.1); Sodium 137 mmol/L (136-145)
[2017-10-12] MEDS ORDERED: Aspirin 325 MG TAB PO SCH (09:00)
[2017-10-12] MEDS: cloNIDine 0.1 MG TAB PO SCH (09:10)
[2017-10-12] MEDS: Enoxaparin Sodium 40 MG/0.4 ML SYRINGE SC SCH (09:10)
[2017-10-12] MEDS: hydrALAZINE 25 MG TAB PO SCH (09:11)
--- NOTE | 2017-10-12 09:19 | PDOC.FM ---
- Subjective Subjective: Patient reports doing well overnight. Only complaint is wanting to go home. No CP, SOB, N/V, dysuria. Chronic urinary incontinence. - Objective MAR Reviewed: Yes Vital Signs & Weight: Vital Signs (12 hours) Temp Pulse Resp BP BP Pulse Ox 10/12/17 09:11 88 170/74 H 10/12/17 09:10 170/74 H 10/12/17 08:00 99.8 F H 88 15 10/12/17 07:11 99.8 F H 88 15 170/74 H 97 10/12/17 04:23 89 10/12/17 03:04 100.1 F H 89 16 201/111 H 98 10/11/17 23:58 101.2 F H 86 16 158/95 H 97 10/11/17 22:19 66 Weight Weight 61.1 kg Most Recent Monitor Data Heart Rate from ECG 79 NIBP 112/79 NIBP BP-Mean 84 Respiration from ECG 17 SpO2 98 I&O: 10/11/17 10/12/17 10/13/17 06:59 06:59 06:59 Intake Total 312 600 Output Total 1840 Balance -1528 600 Result Diagrams: 10/12/17 04:55 10/12/17 04:55 <Julian Watt - Last Filed: 10/12/17 09:18> - Objective Vital Signs & Weight: Vital Signs (12 hours) Temp Pulse Resp BP BP Pulse Ox 10/12/17 09:11 88 170/74 H 10/12/17 09:10 170/74 H 10/12/17 08:00 99.8 F H 88 15 10/12/17 07:11 99.8 F H 88 15 170/74 H 97 10/12/17 04:23 89 10/12/17 03:04 100.1 F H 89 16 201/111 H 98 10/11/17 23:58 101.2 F H 86 16 158/95 H 97 Weight Weight 61.1 kg Most Recent Monitor Data Heart Rate from ECG 79 NIBP 112/79 NIBP BP-Mean 84 Respiration from ECG 17 SpO2 98 I&O: 10/11/17 10/12/17 10/13/17 06:59 06:59 06:59 Intake Total 312 600 Output Total 1840 Balance -1528 600 Result Diagrams: 10/12/17 04:55 10/12/17 04:55 <Eduin Foster Sergei - Last Filed: 10/12/17 10:27> Phys Exam - Physical Examination Constitutional: NAD HEENT: moist MMs, oral pharynx no lesions Respiratory: no wheezing, clear to auscultation bilateral Cardiovascular: RRR, no significant murmur Gastrointestinal: soft, non-tender, positive bowel sounds Musculoskeletal: no edema, pulses present Neurological: normal sensation, moves all 4 limbs left hemiparesis, stable Psychiatric: A&O x 3 Deviation from normal: able to converse and answer questions <PairvingJulian Ruben - Last Filed: 10/12/17 09:18> Dx/Plan (1) Encephalopathy Code(s): G93.40 - ENCEPHALOPATHY, UNSPECIFIED Status: Acute Plan: resolved per family (2) Seizure Code(s): R56.9 - UNSPECIFIED CONVULSIONS Status: Acute Plan: started on keppra 2/2 stroke vs UTI (3) Hypertensive emergency Code(s): I16.1 - HYPERTENSIVE EMERGENCY Status: Acute Plan: resolved (4) UTI (urinary tract infection) Status: Acute QualifierTitle: Urinary tract infection type: acute cystitis Hematuria presence: without hematuria Qualified Code(s): N30.00 - Acute cystitis without hematuria Plan: currently being treated with rocephin, await cultures with prelim of gm neg rods (5) H/O: CVA (cerebrovascular accident) Code(s): Z86.73 - PRSNL HX OF TIA (TIA), AND CEREB INFRC W/O RESID DEFICITS Status: Acute (6) HTN (hypertension) Code(s): I10 - ESSENTIAL (PRIMARY) HYPERTENSION Status: Acute QualifierTitle: Hypertension type: essential hypertension Qualified Code( s): I10 - Essential (primary) hypertension (7) HLD (hyperlipidemia) Code(s): E78.5 - HYPERLIPIDEMIA, UNSPECIFIED Status: Acute (8) DM2 (diabetes mellitus, type 2) Status: Acute QualifierTitle: Diabetes mellitus termite treater insulin use: with care home use Diabetes mellitus complication status: with unspecified complications Qualified Code(s): E11.8 - Type 2 diabetes mellitus with unspecified complications; Z79.4 - jail (current) use of insulin; Z79.4 - terminal operations supervisor ( current) use of insulin; Z79.4 - jail (current) use of insulin; Z79.4 - terminal operations supervisor (current) use of insulin Plan: continue to monitor with accuchecks has been in appropriate range during hospitalization. (9) CAD (coronary artery disease), [place] coronary artery Code(s): I25.10 - ATHSCL HEART DISEASE OF [place] CORONARY ARTERY W/O ANG PCTRS Status: Acute QualifierTitle: [place] vs. transplanted heart: [place] heart Associated angina: angina presence unspecified Qualified Code(s): I25.10 - Atherosclerotic heart disease of [place] coronary artery without angina pectoris (10) (HFpEF) heart failure with preserved ejection fraction Code(s): I50.30 - UNSPECIFIED DIASTOLIC (CONGESTIVE) HEART FAILURE Status: Acute <Julian Watt - Last Filed: 10/12/17 09:18> Attending Addendum - Attending Addendum Date/Time: 10/12/17 1021 I personally evaluated the patient and discussed the management with Dr. Watt. I agree with the History, Examination, Assessment and Plan documented above with any addition or exceptions noted below. 82 yo AAF with delirium and new onset seizure likely 2/2 UTI. Pt much improved with resolution of delirium and no recurrence of seizures. BP's better controlled, resuming home meds, consider using meds less prone to rebound fci. Awaiting urine cultures and sensitivities, transition to oral antibiotics at that time. Coordinate medication reconciliation and possible discharge back to [facility] today. <Eduin Foster - Last Filed: 10/12/17 10:27>
[2017-10-12] MEDS: Famotidine 40 MG/4 ML VIAL SLOW IVP SCH (09:31)
[2017-10-12] MEDS: Sodium Chloride 0.9% 1,000 ML IV SCH (09:32)
[2017-10-12 15:47] VITALS: BP 130/77; TEMP 99.4
[2017-10-12] MEDS: cefTRIAXone\\ROCEPHIN 1 GM, Syringe 0.4 ML in Sterile Water 9.6 ML SLOW IVP SCH (16:37)
[2017-10-12] MEDS ORDERED: hydrALAZINE 25 MG TAB PO SCH (21:00)
--- NOTE | 2017-10-13 13:56 | DIS-2 ---
RESIDENT: Julian Watt DO ADMITTING ATTENDING: Prasanna Jones MD DISCHARGE ATTENDING: Eduin Foster MD CONSULTS: Dr. Montaño, Pulmonology. PROCEDURES: Brain CT on 10/10/2017 showing an old large right MCA infarct and other chronic-type findings with no intracranial abnormalities. CT angiogram of head and neck with contrast on 10/10/2017: Findings were limited due to the large collection of very dense extravasated contrast material in the soft tissues of the right neck centered around the right sternocleidomastoid muscle causing severe streak artifact, severe stenosis at the origin of the right vertebral artery and at the proximal intracranial segment of the left vertebral artery. Chest x-ray on 10/10/2017 showing endotracheal tube in the lower thoracic trachea, no acute cardiopulmonary findings, nasogastric tube placement, status post coronary artery bypass graft surgery. Intubation on 10/10/2017 and extubation on 10/10/2017. IO of the left humerus, which was placed and removed on 10/10/2017. PRIMARY DIAGNOSES: 1. Encephalopathy, suspected secondary to urinary tract infection versus transient ischemic attack versus cerebrovascular accident. 2. Hypertensive emergency. 3. Witnessed seizures; new, on arrival. SECONDARY DIAGNOSES: 1. History of cerebrovascular accident. 2. Preserved ejection fraction heart failure. 3. Type 2 diabetes. 4. Chronic kidney disease, stage 3. 5. Coronary artery disease, status post coronary artery bypass grafting in 1986. 6. Hyperlipidemia. 8. Hypertension. 9. Depression. DISCHARGE MEDICATIONS: 1. Keppra 500 mg p.o. b.i.d. 2. Potassium chloride 20 mEq p.o. daily. 3. Tramadol 1-2 tablets p.o. q.6 hours p.r.n. pain. 4. Insulin 10 mg p.o. subcutaneous at bedtime. 5. Aspirin 81 mg p.o. daily. 6. Simvastatin 40 mg p.o. at bedtime. 7. Maalox 5 mg p.o. q.8 hours p.r.n. indigestion. 8. Lasix 40 mg p.o. daily. 9. Cholecalciferol 5000 units p.o. daily. 10. Isosorbide mononitrate 60 mg p.o. daily. 11. Zofran 8 mg p.o. q.12 hours p.r.n. nausea. 12. Trazodone 100 mg p.o. daily. 13. Travoprost 1 drop in right eye at bedtime. 14. Magnesium hydroxide 30 mg p.o. q.6 hours p.r.n. constipation. 15. Tradjenta 5 mg p.o. daily. 16. Carbidopa/levodopa 50/200, take 2 tablets p.o. daily. 17. Ropinirole 0.25 p.o. t.i.d. 18. Multivitamin with minerals 1 tablet p.o. daily. 19. MiraLax 17 grams p.o. daily p.r.n. constipation. 20. Lidocaine 10 mL mucous membrane swab every 12 hours p.r.n. pain. 21. Hydralazine 25 mg p.o. b.i.d. 22. Humulin R sliding scale 150-200, 2 units; 201-250, 4 units; 251-300, 6 units; 301-400, 8 units; notify M.D. if fasting blood sugar is greater than 400. 23. Ferrous sulfate 325 mg p.o. daily. 24. Ampicillin 500 mg po q6hr x 10 days 25. Bactrim DS 1 tablet po b.i.d. DISCONTINUED MEDICATIONS: None. HISTORY OF PRESENT ILLNESS AND HOSPITAL COURSE: The patient is an 82-year-old -[place] female, who presented to ER from [facility] with acute history of altered mental status. The patient was typically alert and oriented x3; however, the patient was having trouble swallowing and nonresponsive. Therefore, the patient was taken to the ER for evaluation. The patient was found to have witnessed seizures in the ER and was given Ativan 1 mg x2. Additionally, due to concerns of airway protection, the patient was intubated after RSI. Of note, the patient had elevated blood pressures greater than 250/190. In the process of treating lower blood pressure, central line access was attempted with great difficulty. Eventually, central line access was obtained with an IO to left humerus. Initially, there were concerns that the patient had had a hemorrhagic stroke; however, workup was negative. Cardene drip was started on the patient and she quickly dropped her blood pressure below acceptable level for permissive hypertension. Therefore, Cardene drip was stopped and the patient was transferred to the floor. Antibiotics were started, Rocephin. When the patient reached the floor, the patient was evaluated by Pneumatic Jacketer who determined the patient was appropriately protecting her airway and breathing on her own. Therefore, she was extubated soon after arrival to the floor. Additionally, peripheral access was achieved and the patient had her central line removed. The patient maintained adequate oxygen saturation. The following day, the patient still had elevated blood pressures, but was in a more appropriate range. Therefore, she was moved to the floor. The patient was able to verbalize and answer questions pertaining to date and location. The patient passed a swallow study and started on home diet of pureed diabetic diet. The patient was also started on Keppra prior to leaving the unit; however, she was asymptomatic in regards to seizure during hospitalization. Discussion with family regarding goals of care and further intervention determined that we would not do any advanced imaging such as MRI to determine if there was new CVA injury during this hospitalization. On the day of discharge, the patient was found to be at her normal state of health per family and able to talk and have conversations with staff. Therefore, the patient was sent home on home medications. Also, of note, the patient had a UTI. Urine cultures were drawn. The patient was sent home for a full course of oral antibiotics. DISPOSITION: Stable, but guarded for long-term. DISCHARGE INSTRUCTIONS: 1. Location: senior care. 2. Diet: Heart healthy, diabetic. 3. Activity: As tolerated. 4. Followup: Follow up with PCP, Dr. Vazquez in the next 7 days. DYLAN
== END 2017-10-12 17:36 | DRG 689 ==
LOC: ERS 08:52 → CCU 15:07 → 2SE 22:57
PROVIDERS: ADMIT Family Medicine; ATTEND Family Medicine
PROC: 0BH17EZ Insertion of Endotracheal Airway into Trachea, Via Natural or Artificial Opening (ICD-10-PCS; principal; 2017-10-10)
PROC: 5A1935Z Respiratory Ventilation, Less than 24 Consecutive Hours (ICD-10-PCS; 2017-10-10)
DX: N30.00 Acute cystitis without hematuria (principal); G93.40 Encephalopathy, unspecified; R56.9 Unspecified convulsions; I13.0 Hypertensive heart and chronic kidney disease with heart failure and stage 1 through stage 4 chronic kidney disease, or unspecified chronic kidney disease; I50.32 Chronic diastolic (congestive) heart failure; E11.22 Type 2 diabetes mellitus with diabetic chronic kidney disease; I69.354 Hemiplegia and hemiparesis following cerebral infarction affecting left non-dominant side; I16.1 Hypertensive emergency; D63.1 Anemia in chronic kidney disease; R32 Unspecified urinary incontinence; E78.5 Hyperlipidemia, unspecified; Z79.4 Long term (current) use of insulin; I25.10 Atherosclerotic heart disease of native coronary artery without angina pectoris; F03.90 Unspecified dementia, unspecified severity, without behavioral disturbance, psychotic disturbance, mood disturbance, and anxiety; Z95.1 Presence of aortocoronary bypass graft; H40.9 Unspecified glaucoma; F32.9 Major depressive disorder, single episode, unspecified; Z51.5 Encounter for palliative care; Z66 Do not resuscitate; N18.3 Chronic kidney disease, stage 3 (moderate)
CPT/HCPCS: 31500; 36415; 36416; 36556; 70450; 70496; 70498; 71045; 80048; 80053; 81003; 81015; 82553; 82805; 83735; 84443; 84484; 85025; 85610; 85730; 87077; 87086; 87186; 93005; 94002; 96365; 96366; 96374; 96375; 96376; A4216; G8996-GN-CJ; G8997-GN-CJ; J0360; J0696; J1650; J1953; J2060; J2704

== ENCOUNTER 2019-05-05 19:58 | Inpatient (IN) | payer MEDICARE, MEDICAID ==
[~2019-05-05 19:58] MED LIST: Iopamidol 370 76% 100 ML VIAL ONE
[2019-05-05 21:10] LABS: #Eosinphils 0.2 thou/uL (0.0-0.7); #Lymphocytes 1.7 thou/uL (1.20-3.40); #Monocytes 0.5 thou/uL (0.11-0.59); #Neutrophils 4.5 thou/uL (1.40-6.50); %Basophils 0.6 % (0.0-1.0); %Eosinophils 2.4 % (0.0-10.0); %Lymphocytes 24.7 % (21.0-51.0); %Monocytes 7.1 % (0.0-10.0); %Neutrophils 65.3 % (42.0-75.0); Hemoglobin 10.7 g/dL (12.0-16.0); Mean Corpuscular HGB CONC 32.1 g/dL (32.0-36.0); Mean Corpuscular Volume 96.6 fL (78.0-98.0); Mean Platelet Volume 9.2 fL (7.4-10.4); Platelet Count 176 thou/uL (130-400); RBC Distribution Width 11.9 % (11.5-14.5); Red Blood Cell (RBC) Count 3.45 mill/uL (4.20-5.40); White Blood Cell (WBC) Count 6.8 thou/uL (4.8-10.8)
[2019-05-05 21:29] LABS: ALT (SGPT) Less than 7 U/L (8-55); AST (SGOT) 10 U/L (5-34); Albumin 3.8 g/dL (3.4-4.8); Alkaline Phosphatase 51 U/L (40-110); Anion Gap 10 mmol/L (10-20); BUN (Urea Nitrogen) 10 mg/dL (9.8-20.1); Bilirubin, Total 0.3 mg/dL (0.2-1.2); Calc. Creatinine Clearance 0 mL/min (70-130); Carbon Dioxide 29 mmol/L (23-31); Chloride 106 mmol/L (98-107); Estimated GFR-MDRD 79; Globulin 2.6 g/dL (2.4-3.5); Glucose 245 mg/dL (83-110); Potassium 4.1 mmol/L (3.5-5.1); Protein, Total 6.4 g/dL (6.0-8.3); Sodium 141 mmol/L (136-145)
--- NOTE | 2019-05-05 22:24 | CT ---
CT ABDOMEN AND PELVIS WITH IV CONTRAST: Date: 05/05/19 HISTORY: GI bleed, rectal bleeding. FINDINGS: There are dependent changes in the lung bases. There are calcified granulomas in the liver and spleen . The pancreas and adrenal glands are normal. There is a 5.5 cm cyst in the right kidney and a 6.4 cm cyst in the left kidney. No free air or free fluid is seen in the abdomen or pelvis. No lymphadenopathy identified. There are vascular calcifications without evidence of aneurysmal dilatation of the abdominal aorta. There is fe pradip material in the colon and rectum. There are vascular calcifications without evidence of aneurysma l dilatation of the abdominal aorta. There are degenerative changes in the spine. There is colonic di verticulosis. IMPRESSION: 1. Calcified granulomas in liver and spleen. 2. Bilateral renal cysts. 3. Colonic diverticulosis. POS: [facility]
[2019-05-06] MEDS ORDERED: Dextrose 5% in Water 1,000 ML IV PRN (09:17)
[2019-05-06] MEDS ORDERED: Pantoprazole 40 MG VIAL IVP SCH (09:17)
[2019-05-06] MEDS ORDERED: HumaLOG 300 UNITS/3 ML VIAL SC PRN (09:17)
[2019-05-06] MEDS ORDERED: Dextrose 50% Abboject 50 ML SYRINGE SLOW IVP PRN (09:17)
[2019-05-06] MEDS ORDERED: Labetalol HCl 100 MG/20 ML VIAL SLOW IVP PRN (09:18)
[2019-05-06] MEDS ORDERED: Sodium Chloride 0.9% (PF) 10 ML VIAL FS PRN (09:43)
[2019-05-06] MEDS: Pantoprazole 40 MG VIAL IVP SCH (09:52)
[2019-05-06 09:53] LABS: #Eosinphils 0.3 thou/uL (0.0-0.7); #Lymphocytes 2.2 thou/uL (1.20-3.40); #Monocytes 0.6 thou/uL (0.11-0.59); #Neutrophils 4.2 thou/uL (1.40-6.50); %Basophils 0.1 % (0.0-1.0); %Eosinophils 4.6 % (0.0-10.0); %Lymphocytes 29.9 % (21.0-51.0); %Monocytes 7.8 % (0.0-10.0); %Neutrophils 57.6 % (42.0-75.0); Hemoglobin 9.7 g/dL (12.0-16.0); Mean Corpuscular HGB CONC 32.4 g/dL (32.0-36.0); Mean Corpuscular Hemoglobin 31.4 pg (27.0-31.0); Platelet Count 164 thou/uL (130-400); RBC Distribution Width 11.8 % (11.5-14.5); Red Blood Cell (RBC) Count 3.09 mill/uL (4.20-5.40); White Blood Cell (WBC) Count 7.2 thou/uL (4.8-10.8)
[2019-05-06] MEDS: hydrALAZINE 20 MG/ML VIAL SLOW IVP PRN (09:59)
--- NOTE | 2019-05-06 11:15 | HP ---
CHIEF COMPLAINT: Rectal bleeding. HISTORY OF PRESENT ILLNESS: Ms. Wagner is a very pleasant 83-year-old female, who resides in a custodial in [place]. She says that she is essentially bed bound after suffering she says several strokes. She says she was at the custodial, eating breakfast, when the nursing staff moved her and noticed that she was in "a puddle of blood." She says she did not even notice anything until they brought it to her attention. She denies having any abdominal pain. No nausea. No vomiting. She denies feeling dizzy or lightheaded. She denied having any shortness of breath, but due to concern, she was brought to the ER for evaluation. In the ER, they did a CT scan of the abdomen and pelvis and noted that she had some evidence of colonic diverticulosis, but no other significant abnormalities, and she is being admitted for further evaluation. REVIEW OF SYSTEMS: All systems are reviewed and are negative except for that mentioned in the history of present illness. PAST MEDICAL HISTORY: Significant for coronary artery disease, cerebrovascular accident, chronic kidney disease, diabetes mellitus type 2, hypertension, anemia, depression, and diverticulosis. PAST SURGICAL HISTORY: She has had coronary artery bypass surgery, hysterectomy, cholecystectomy, appendectomy, carotid endarterectomy, bilateral total knee replacement surgery, and cataract surgeries. FAMILY HISTORY: Significant for mother, who had diabetes and heart disease also in her mother. SOCIAL HISTORY: She resides in a custodial in [place]. She is a nonsmoker and nondrinker. She is , has 8 children and she tells me she would like to be a full code. ALLERGIES: NO KNOWN DRUG ALLERGIES. MEDICATIONS: Her medications are taken from her records and include 1. Aspirin 81 mg daily. 2. Lasix 40 mg a day. 3. Cozaar 50 mg twice a day. 4. Hydralazine 25 mg twice daily. 5. Requip 0.25 mg t.i.d. 6. Clonidine 0.1 mg twice daily. 7. Cosopt 2% to 5% twice a day. 8. Iron sulfate 325 mg daily. 9. Isosorbide mononitrate extended release 30 mg daily. 10. Milk of magnesia daily. 11. MiraLAX 17 g daily. 12. Potassium chloride 20 mEq once a day. 13. Travatan Z 0.004% q.h.s. 14. Trazodone 100 mg q.h.s. 15. Vitamin D3 of 5000 units once daily. 16. Zocor 40 mg daily. 17. Docusate sodium 100 mg. 18. Bisoprolol 5 mg daily. 19. Remeron 15 mg daily. 20. Sinemet CR 50/200 daily. 21. Tradjenta 5 mg daily. 22. Keppra 500 mg twice a day. PHYSICAL EXAMINATION: GENERAL: She is alert and oriented. She appears to be in no acute distress. VITAL SIGNS: The most recent was blood pressure of 140/82, heart rate 51, respiratory rate of 18, and temperature is 98.5. HEENT: Pupils are equal, round, and reactive. Extraocular muscles are intact. Her sclerae anicteric. Throat, she has some mild dry mucous membranes. NECK: No adenopathy, no bruits. LUNGS: Clear to auscultation. There is no wheezing. No rales. No rhonchi. CARDIOVASCULAR: She has a normal S1 and S2. She does have what sounds like a slight diastolic murmur heard along the left lower sternal border. ABDOMEN: Soft, nontender, and nondistended. Positive for bowel sounds. There is no rebound, no guarding, no organomegaly. EXTREMITIES: She has no edema. There are no joint effusions. NEUROLOGIC: She is able to move all of her extremities, but she has some contracture deformities in both of her hands, and her strength is a bit weak against resistance, and she has a facial droop. LABORATORY RESULTS: The white blood cell count 6.8, hemoglobin 10.7, hematocrit is 33.4, and platelet count is 176. Sodium 141, potassium 4.1, chloride is 106, CO2 is 29, BUN of 10, creatinine 0.83, glucose is 245, and again, CT scan showed evidence of colonic diverticulosis. ASSESSMENT: 1. This is a pleasant 83-year-old female, who will be admitted due to bright red blood per rectum. Given the CT evidence of diverticulosis, I suspect this is the likely etiology of her bleed. Given her advanced age and her neurological status and bed-bound status, I doubt that there would be any invasive procedures unless she had a significant rebleed and drop in her hemoglobin. Therefore, we will go ahead and allow her to eat. We will consult Gastroenterology to see if they agree with this approach. Place her on a proton pump inhibitor as a precaution and hold the aspirin. 2. History of coronary artery disease. We will continue her home medications including the simvastatin, but we will hold the aspirin for now. 3. Hypertension. Her blood pressure has been a bit labile. We will restart her home medications as well as have p.r.n. medications available for her elevated blood pressure. 4. Diabetes mellitus. She may need to take her own Tradjenta, and we will place her on a sliding scale insulin. Job ID: [id number]
[2019-05-06] MEDS ORDERED: GoLYTELY 4,000 ml Bottle PO SCH (13:30)
[2019-05-06] MEDS: HumaLOG 300 UNITS/3 ML VIAL SC PRN (14:00)
--- NOTE | 2019-05-06 20:10 | CON ---
DATE OF CONSULTATION: 05/06/2019 REQUESTING PHYSICIAN: Dr. Fairchild. REASON FOR CONSULTATION: GI bleeding. HISTORY OF PRESENT ILLNESS: Janelle Wagner is a very pleasant 83-year-old woman with a history significant for coronary artery disease status post CABG, multiple CVAs and chronic kidney disease. She has some degree of chronic anemia and is on iron supplementation at her residential. She has previously seen my GI colleague, Dr. Bravo Ellis back in 2012. She was hospitalized at the [facility] for a few days with acute gastrointestinal bleeding. A tagged RBC scan suggested bleeding at the splenic flexure. EGD and colonoscopy at that time demonstrated normal EGD and colonoscopy showing diffuse diverticulosis, and the conclusion was that she likely had a self-limited diverticular bleed at that time. She has had no bleeding or chronic gastrointestinal symptoms over the past 6 years since then. Yesterday, evidently at the residential when she was moved after eating breakfast, she was noted to be in a puddle of bright and dark red blood. This was alarming to all involved. She was transferred here, where FOBT was positive and there was still a bit of red blood in the stool. Yesterday, hemoglobin was 10.7. She has remained hemodynamically stable overnight. Today, hemoglobin is 9.7. She has not had any bowel movements today. Through all of this, she never had any abdominal pain, nausea, vomiting, or dizziness. She tolerated breakfast well today. REVIEW OF SYSTEMS: Full review of systems including constitutional, head, eyes, ears, nose, throat, GI, , cardiovascular, respiratory, musculoskeletal, neurologic systems is negative except as noted in the HPI. PAST MEDICAL HISTORY: Coronary artery disease, CABG, carotid endarterectomy, multiple CVAs, cholecystectomy, appendectomy, bilateral total knee replacement, chronic kidney disease, diabetes, hypertension, anemia, depression, diverticulosis with presumed diverticular bleed in 2012. ALLERGIES: NO KNOWN DRUG ALLERGIES. OUTPATIENT MEDICATIONS: 1. Aspirin 81 mg daily. 2. Lasix. 3. Cozaar. 4. Hydralazine. 5. Requip. 6. Clonidine. 7. Ferrous sulfate 325 mg daily. 8. Imdur. 9. Milk of magnesia daily. 10. MiraLAX 17 g daily. 11. Potassium chloride. 12. Vitamin D3 5000 units daily. 13. Zocor. 14. Docusate 100 mg. 15. Bisoprolol. 16. Remeron. 17. Sinemet. 18. Tradjenta. 19. Keppra. SOCIAL HISTORY: The patient is a residential in [place]. No smoking, alcohol, or drug use. FAMILY HISTORY: Mother had diabetes. PHYSICAL EXAMINATION: VITAL SIGNS: Temperature 98.1, pulse 64, blood pressure 168/75, and 100% oxygen saturation on room air. GENERAL: An elderly 83-year-old woman, sitting up in bed comfortably, in no distress. Alert and oriented to person and place. SKIN: No jaundice. No rashes were palpable. EYES: No scleral icterus. Extraocular movements intact. ENT: Mucous membranes moist. No oral lesions. LYMPH: No submandibular or supraclavicular lymphadenopathy. THYROID: Nontender to palpation. HEART: Regular rate and rhythm. LUNGS: Clear to auscultation bilaterally. ABDOMEN: Nondistended. Bowel sounds present. Soft, nontender to deep palpation. Throughout the abdomen, some mild tenderness in the lower abdomen, but no guarding, rebound, or tenderness. EXTREMITIES: No peripheral edema. VESSELS: Radial pulses, 2+ bilaterally. NEUROLOGIC: Cranial nerves 2 through 12 intact bilaterally. No focal deficits. LABORATORY STUDIES: Hemoglobin initially 10.7, now down to 9.7, MCV is 97, WBC 7.2, platelets 164, BUN 10, creatinine 0.83, glucose 210. LFTs all normal with total bilirubin 0.3, alkaline phosphatase 51, AST 10, ALT less than 7, and albumin 3.8. IMAGING STUDIES: CT of the abdomen and pelvis demonstrates only diffuse diverticulosis throughout the colon and some bilateral renal cysts. Calcified granulomata in the liver and spleen. FOBT is positive. ASSESSMENT AND PLAN: 1. Lower gastrointestinal bleeding, acute. 2. Acute blood loss anemia. 3. History of colonic diverticulosis, with prior diverticular bleed in 2013. The patient presents with acute lower gastrointestinal bleeding and significant hemoglobin decline. On the other hand, active bleeding has probably resolved given no further active bowel movements today, continued hemodynamics stability. Overall presentation seems most consistent with recurrent diverticular bleed. Of course, her last episode was 6 years ago, so other etiologies are also possible. The patient and family are desirous of being fairly aggressive with workup to try to identify bleeding source at this time. I do think it would be reasonable to proceed with colonoscopy tomorrow after bowel prep this evening. We will go ahead and plan for this. Continue to trend hemoglobin and hematocrit in the meantime, transfuse as needed. Thank you for the consultation. Please call anytime with questions or concerns. Job ID: [id number]
[2019-05-07 00:03] VITALS: BMI 24.1
[2019-05-07] MEDS ORDERED: Sodium Chloride 0.9% 10 ML ONE (00:22)
[2019-05-07] MEDS: hydrALAZINE 20 MG/ML VIAL SLOW IVP PRN ×2 (00:24→13:14)
[2019-05-07 06:10] LABS: #Basophils 0.1 thou/uL (0.0-0.2); #Eosinphils 0.4 thou/uL (0.0-0.7); #Lymphocytes 2.9 thou/uL (1.20-3.40); #Monocytes 0.6 thou/uL (0.11-0.59); #Neutrophils 4.5 thou/uL (1.40-6.50); %Basophils 0.7 % (0.0-1.0); %Eosinophils 4.3 % (0.0-10.0); %Lymphocytes 34.1 % (21.0-51.0); %Monocytes 7.6 % (0.0-10.0); %Neutrophils 53.2 % (42.0-75.0); Hemoglobin 10.2 g/dL (12.0-16.0); Mean Corpuscular HGB CONC 33.3 g/dL (32.0-36.0); Mean Corpuscular Hemoglobin 31.8 pg (27.0-31.0); Mean Corpuscular Volume 95.6 fL (78.0-98.0); Mean Platelet Volume 8.8 fL (7.4-10.4); Platelet Count 168 thou/uL (130-400); RBC Distribution Width 11.9 % (11.5-14.5); White Blood Cell (WBC) Count 8.5 thou/uL (4.8-10.8)
[2019-05-07 06:29] LABS: Anion Gap 10 mmol/L (10-20); BUN (Urea Nitrogen) 9 mg/dL (9.8-20.1); Calc. Creatinine Clearance 71 mL/min (70-130); Calcium 8.9 mg/dL (7.8-10.44); Carbon Dioxide 25 mmol/L (23-31); Chloride 107 mmol/L (98-107); Estimated GFR-MDRD Greater than 90; Glucose 118 mg/dL (83-110); Potassium 3.3 mmol/L (3.5-5.1); Sodium 139 mmol/L (136-145)
[2019-05-07] MEDS: Pantoprazole 40 MG VIAL IVP SCH (08:38)
[2019-05-07] MEDS: Acetaminophen 325 MG TAB PO PRN (08:42)
--- NOTE | 2019-05-07 13:03 | PRG ---
DATE OF SERVICE: 05/07/2019 SUBJECTIVE: Ms. Wagner came in with rectal bleeding. This is reported to be red. She had a diverticular bleed in 2012 and EGD and colonoscopy at that time. At this admission, she came in and she had a CAT scan on 05/05 in the emergency room. Reviewing those images, large fecal impaction. She came downstairs today for colonoscopy. The nurse notes she is still slightly dirty. Her rectal exam showed a fecal impaction. Procedure was canceled. PHYSICAL EXAMINATION: VITAL SIGNS: Temperature is 98, pulse is 76, blood pressure is 194/73. ABDOMEN: Soft and nontender. RECTAL: Reveals a large hard fecal impaction in the rectal vault. LABORATORY DATA: Her hemoglobin has not dropped. She has had no transfusion this admission. Her hemoglobin is stable at 10.2. The patient's profile is normal. ASSESSMENT: Fecal impaction. She had some bleeding, it could have been diverticular, could have been ulcer. RECOMMENDATIONS: Disimpact the patient. Orders have been given. The nurses will follow along with you. Consider repeat colonoscopy tomorrow depending on findings. Job ID: [id number]
[2019-05-07] MEDS ORDERED: Magnesium Citrate 300 ML BOT PO SCH (13:30)
--- NOTE | 2019-05-07 15:12 | PDOC.HOSPP ---
- Subjective Encounter Date: 05/07/19 Encounter Time: 15:11 Subjective: Ms. Honeycutt was seen today in follow-up of rectal bleeding.She has not had any further bleeding. She denies any abdominal pain. - Objective Vital Signs & Weight: Vital Signs (12 hours) Temp Pulse Resp BP BP Pulse Ox 05/07/19 13:14 62 222/80 H 05/07/19 13:00 98.4 F 62 18 222/80 H 100 05/07/19 08:00 96 05/07/19 05:00 98.3 F 76 18 194/73 H 96 Weight Weight 154 lb 4.8 oz I&O: 05/06/19 05/07/19 05/08/19 06:59 06:59 06:59 Intake Total 1820 Balance 1820 Result Diagrams: 05/07/19 06:01 05/07/19 06:01 Additional Labs: Accuchecks 05/07/19 05/06/19 05/06/19 04:19 20:02 16:34 POC Glucose 124 H 138 H 119 H Hospitalist ROS - Medication Medications: Active Medications Generic Name Dose Route Start Last Admin Trade Name Freq PRN Reason Stop Dose Admin Acetaminophen 650 mg 05/06/19 09:17 05/07/19 08:42 Tylenol PO 650 mg Q4H PRN Administration Headache/Fever/Mild Pain (1-3) Hydralazine HCl 10 mg 05/06/19 09:18 05/07/19 13:14 Apresoline SLOW IVP 10 mg Q4H PRN Administration SBP > 180 and HR < 70 Insulin Human Lispro 0 units 05/06/19 09:17 05/06/19 14:00 Humalog SC 4 unit .MODERATE SLIDING SC PRN Administration Moderate Correctional Scale Magnesium Citrate 300 ml 05/07/19 13:30 05/07/19 13:44 Citrate Of Magnesia 300 Ml Bot PO 05/07/19 15:30 300 ml NOW LANDRY Administration Pantoprazole Sodium 40 mg 05/06/19 09:00 05/07/19 08:38 Protonix IVP 40 mg DAILY LANDRY Administration - Exam Eye: PERRL Heart: RRR, no murmur, no gallops, no rubs, normal peripheral pulses Respiratory: CTAB, no wheezes, no rales, no ronchi, normal chest expansion, no tachypnea, normal percussion Gastrointestinal: soft, non-tender, non-distended, normal bowel sounds, no palpable masses, no hepatomegaly Extremities: no cyanosis, no clubbing, no edema Hosp A/P (1) Rectal bleeding Code(s): K62.5 - HEMORRHAGE OF ANUS AND RECTUM Status: Acute (2) CAD (coronary artery disease), [place] coronary artery Code(s): I25.10 - ATHSCL HEART DISEASE OF [place] CORONARY ARTERY W/O ANG PCTRS Status: Acute Qualifiers: [place] vs. transplanted heart: [place] heart Associated angina: angina presence unspecified Qualified Code(s): I25.10 - Atherosclerotic heart disease of [place] coronary artery without angina pectoris (3) DM2 (diabetes mellitus, type 2) Status: Acute Qualifiers: Diabetes mellitus terminologist insulin use: with terminologist use Diabetes mellitus complication status: with unspecified complications (4) HLD (hyperlipidemia) Code(s): E78.5 - HYPERLIPIDEMIA, UNSPECIFIED Status: Acute (5) HTN (hypertension) Code(s): I10 - ESSENTIAL (PRIMARY) HYPERTENSION Status: Acute Qualifiers: Hypertension type: essential hypertension Qualified Code(s): I10 - Essential (primary) hypertension - Plan * Rectal bleeding- posible from Diverticulosis, or fecal impaction * She is undergoing dis-impaction now * Plan is for colonoscopy tomorrow
[2019-05-07] MEDS ORDERED: Bisoprolol Fumarate 5 MG TAB PO SCH (15:30)
[2019-05-07] MEDS ORDERED: Bisacodyl 10 MG SUPP PR PRN (18:05)
[2019-05-07] MEDS: levETIRAcetam 500 MG TAB PO SCH (20:04)
[2019-05-07] MEDS: rOPINIRole HCl 0.25 MG TAB PO SCH (20:04)
[2019-05-07] MEDS: hydrALAZINE 25 MG TAB PO SCH (20:05)
[2019-05-07] MEDS: DorzolamidE/Timolol 2%/0.5% Ophth Soln 10 ml Bottle R EYE SCH (20:05)
[2019-05-07] MEDS: Latanoprost 0.005% Ophth Soln 2.5 ml Bottle R EYE SCH (21:17)
[2019-05-07] MEDS: Fleet Enema 133 ML BOT FS PRN (21:18)
[2019-05-08] MEDS: hydrALAZINE 20 MG/ML VIAL SLOW IVP PRN ×3 (00:02→18:34)
[2019-05-08] MEDS: Fleet Enema 133 ML BOT FS PRN (00:59)
[2019-05-08] MEDS: Acetaminophen 325 MG TAB PO PRN (00:59)
[2019-05-08 06:09] LABS: Hemoglobin 9.4 g/dL (12.0-16.0)
[2019-05-08] MEDS: DorzolamidE/Timolol 2%/0.5% Ophth Soln 10 ml Bottle R EYE SCH ×2 (09:11→21:21)
[2019-05-08] MEDS: Pantoprazole 40 MG VIAL IVP SCH (09:13)
[2019-05-08 10:46] LABS: Anion Gap 8 mmol/L (10-20); BUN (Urea Nitrogen) 5 mg/dL (9.8-20.1); Calc. Creatinine Clearance 67 mL/min (70-130); Calcium 8.7 mg/dL (7.8-10.44); Carbon Dioxide 30 mmol/L (23-31); Chloride 106 mmol/L (98-107); Estimated GFR-MDRD Greater than 90; Glucose 117 mg/dL (83-110); Sodium 141 mmol/L (136-145)
[2019-05-08] MEDS: Carbidopa/Levodopa CR 50-200 mg Tablet PO SCH ×2 (10:50→18:24)
[2019-05-08] MEDS: Bisoprolol Fumarate 5 MG TAB PO SCH ×2 (10:50→18:40)
[2019-05-08 10:58] LABS: Potassium 2.7 mmol/L (3.5-5.1)
[2019-05-08] MEDS ORDERED: Potassium Chloride 40 MEQ in Sodium Chloride 0.9% 250 ML 250 ML IV SCH (12:15)
[2019-05-08] MEDS: hydrALAZINE 25 MG TAB PO SCH ×3 (13:48→21:14)
[2019-05-08] MEDS: Multivitamin W/ Minerals 1 TAB PO SCH ×2 (13:49→18:39)
[2019-05-08] MEDS: Mirtazapine 15 MG Soltab PO SCH ×2 (13:49→18:39)
[2019-05-08] MEDS: rOPINIRole HCl 0.25 MG TAB PO SCH ×3 (13:49→21:13)
[2019-05-08] MEDS: traZODone HCl 50 MG TAB PO SCH ×2 (13:49→18:23)
[2019-05-08] MEDS: levETIRAcetam 500 MG TAB PO SCH ×2 (13:49→21:14)
--- NOTE | 2019-05-08 14:13 | PDOC.HOSPP ---
- Subjective Encounter Date: 05/08/19 Encounter Time: 14:10 Subjective: Ms. Wagner was seen today in for follow-up of GI Bleed. She does not have any complaints today. - Objective Vital Signs & Weight: Vital Signs (12 hours) Temp Pulse Resp BP BP BP Pulse Ox 05/08/19 13:53 43 L 185/66 H 05/08/19 13:48 49 L 05/08/19 13:00 98.5 F 50 L 16 185/66 H 100 05/08/19 10:30 99.3 F 49 L 16 182/71 H 98 05/08/19 08:23 99.2 F 51 L 20 179/64 H 100 05/08/19 08:00 98 05/08/19 05:13 99.0 F 53 L 20 161/61 H 93 L Weight Weight 154 lb 4.8 oz I&O: 05/07/19 05/08/19 05/09/19 06:59 06:59 06:59 Intake Total 2119 Balance 2119 Result Diagrams: 05/08/19 05:18 05/08/19 10:03 Additional Labs: Accuchecks 05/08/19 05/08/19 05/07/19 10:40 05:03 19:43 POC Glucose 133 H 104 271 H 05/07/19 16:22 POC Glucose 215 H Hospitalist ROS - Medication Medications: Active Medications Generic Name Dose Route Start Last Admin Trade Name Freq PRN Reason Stop Dose Admin Acetaminophen 650 mg 05/06/19 09:17 05/08/19 00:59 Tylenol PO 650 mg Q4H PRN Administration Headache/Fever/Mild Pain (1-3) Bisacodyl 10 mg 05/07/19 18:05 05/07/19 22:47 Dulcolax OR 10 mg Q2H PRN Administration Constipation Bisoprolol Fumarate 5 mg 05/08/19 09:00 05/08/19 10:50 Zebeta PO Not Given DAILY LANDRY Carbidopa/Levodopa 2 tab 05/08/19 09:00 05/08/19 10:50 Sinemet Cr 50/200 PO Not Given DAILY LANDRY Dorzolamide/Timolol 1 drop 05/07/19 21:00 05/08/19 09:11 Cosopt 2-0.5% Ophth Soln R EYE 1 drop BID LANDRY Administration Hydralazine HCl 10 mg 05/06/19 09:18 05/08/19 13:53 Apresoline SLOW IVP 10 mg Q4H PRN Administration SBP > 180 and HR < 70 Hydralazine HCl 75 mg 05/07/19 21:00 05/08/19 13:48 Apresoline PO Not Given BID LANDRY Potassium Chloride 40 meq/ 270 mls @ 135 mls/hr 05/08/19 12:15 05/08/19 13:43 Sodium Chloride IV 05/08/19 15:00 270 mls NOW LANDRY Administration Insulin Human Lispro 0 units 05/06/19 09:17 05/06/19 14:00 Humalog SC 4 unit .MODERATE SLIDING SC PRN Administration Moderate Correctional Scale Insulin Human Lispro 0 units 05/06/19 09:17 05/07/19 21:18 Humalog SC 3 unit .BEDTIME SLIDING SC PRN Administration Bedtime Correctional Scale Iron/Minerals/Multivitamins 1 tab 05/08/19 09:00 05/08/19 13:49 Theragran M PO Not Given DAILY [facility] Isosorbide Mononitrate 60 mg 05/08/19 09:00 05/08/19 13:48 Imdur PO Not Given DAILY [facility] Latanoprost 1 drop 05/07/19 21:00 05/07/19 21:17 Xalatan 0.005% Ophth Soln R EYE 1 drop HS LANDRY Administration Levetiracetam 500 mg 05/07/19 21:00 05/08/19 13:49 Keppra PO Not Given BID [facility] Mirtazapine 7.5 mg 05/08/19 09:00 05/08/19 13:49 Remeron Soltab PO Not Given DAILY [facility] Pantoprazole Sodium 40 mg 05/06/19 09:00 05/08/19 09:13 Protonix IVP 40 mg DAILY LANDRY Administration Ropinirole HCl 0.25 mg 05/07/19 21:00 05/08/19 13:49 Requip PO Not Given TID LANDRY Sodium Biphosphate/Sodium Phosphate 133 ml 05/07/19 18:05 05/08/19 00:59 Fleet Enema FS 133 ml Q2H PRN Administration Constipation Trazodone HCl 100 mg 05/08/19 09:00 05/08/19 13:49 Desyrel PO Not Given DAILY LANDRY - Exam Eye: PERRL Heart: RRR, no murmur, no gallops, no rubs, normal peripheral pulses Respiratory: CTAB, no wheezes, no rales, no ronchi, normal chest expansion Gastrointestinal: soft, non-tender, non-distended, normal bowel sounds, no palpable masses, no hepatomegaly Extremities: no edema Hosp A/P (1) Rectal bleeding Code(s): K62.5 - HEMORRHAGE OF ANUS AND RECTUM Status: Acute (2) CAD (coronary artery disease), [place] coronary artery Code(s): I25.10 - ATHSCL HEART DISEASE OF [place] CORONARY ARTERY W/O ANG PCTRS Status: Acute Qualifiers: [place] vs. transplanted heart: [place] heart Associated angina: angina presence unspecified Qualified Code(s): I25.10 - Atherosclerotic heart disease of [place] coronary artery without angina pectoris (3) DM2 (diabetes mellitus, type 2) Status: Acute Qualifiers: Diabetes mellitus mcfp insulin use: with dedicated intermodal truck driver use Diabetes mellitus complication status: with unspecified complications (4) HLD (hyperlipidemia) Code(s): E78.5 - HYPERLIPIDEMIA, UNSPECIFIED Status: Acute (5) HTN (hypertension) Code(s): I10 - ESSENTIAL (PRIMARY) HYPERTENSION Status: Acute Qualifiers: Hypertension type: essential hypertension Qualified Code(s): I10 - Essential (primary) hypertension - Plan * Rectal bleeding-possibly due to Diverticulosis-plan is for Colonoscopy- this has been placed on hold due to hypokalemia * HTN- her blood pressure is elevated- but her home medications are on HOLD- due to the procedure- will continue the Catapres patch for now- (her heart rate is a bit slow). Continue Hydralazine prn for now * Bradycardia- She is asymptomatic- this may also be due to the low potassium level * CAD- stable * DM- blood glucose is stable * Hypokalemia- replace
[2019-05-08 17:07] LABS: Anion Gap 12 mmol/L (10-20); BUN (Urea Nitrogen) 4 mg/dL (9.8-20.1); Calc. Creatinine Clearance 76 mL/min (70-130); Calcium 8.3 mg/dL (7.8-10.44); Carbon Dioxide 25 mmol/L (23-31); Chloride 108 mmol/L (98-107); Estimated GFR-MDRD Greater than 90; Glucose 107 mg/dL (83-110); Magnesium 2.3 mg/dL (1.6-2.6); Potassium 3.5 mmol/L (3.5-5.1); Sodium 141 mmol/L (136-145)
[2019-05-08] MEDS: Lactated Ringer's 1,000 ML IV SCH (17:48)
[2019-05-08] MEDS ORDERED: cloNIDine 0.3mg/24 Hour PATCH TD SCH (21:00)
[2019-05-08] MEDS: Latanoprost 0.005% Ophth Soln 2.5 ml Bottle R EYE SCH (21:30)
[2019-05-09] MEDS: Lactated Ringer's 1,000 ML IV SCH (05:08)
[2019-05-09] MEDS ORDERED: cloNIDine 0.3mg/24 Hour PATCH TD SCH (09:00)
[2019-05-09] MEDS: hydrALAZINE 25 MG TAB PO SCH ×2 (09:13→21:16)
[2019-05-09] MEDS: levETIRAcetam 500 MG TAB PO SCH ×2 (09:14→21:15)
[2019-05-09] MEDS: rOPINIRole HCl 0.25 MG TAB PO SCH ×3 (09:14→21:15)
[2019-05-09] MEDS: DorzolamidE/Timolol 2%/0.5% Ophth Soln 10 ml Bottle R EYE SCH ×2 (09:24→21:16)
[2019-05-09] MEDS: Pantoprazole 40 MG VIAL IVP SCH (09:25)
[2019-05-09] MEDS ORDERED: Lidocaine 1% PF 5 ML VIAL ONE (09:28)
[2019-05-09] MEDS ORDERED: PROPOFOL 200 MG/20 ML VIAL ONE (09:28)
[2019-05-09] MEDS: Bisoprolol Fumarate 5 MG TAB PO SCH (09:51)
[2019-05-09] MEDS ORDERED: Ondansetron HCl/PF 4 MG/2 ML Vial IVP PRN (12:38)
[2019-05-09] MEDS ORDERED: Promethazine HCl 25 MG/ML VIAL SLOW IVP PRN (12:38)
[2019-05-09] MEDS ORDERED: Promethazine HCl 25 MG/ML VIAL IM PRN (12:38)
[2019-05-09] MEDS: traZODone HCl 50 MG TAB PO SCH (12:39)
--- NOTE | 2019-05-09 13:29 | OP ---
DATE OF PROCEDURE: 05/09/2019 LARRY OPERATOR SURGEON: None. PROCEDURE PERFORMED: Colonoscopy, diagnostic. INDICATION: Lower GI bleeding. MEDICATIONS: See Anesthesia record. FINDINGS: After discussion of the risks, benefits, and alternatives of the procedure, informed consent was obtained and witnessed. Pre-endoscopic cardiopulmonary examination was satisfactory. Time-out was performed before sedation was achieved. Sedation was achieved with Anesthesia assistance in the endoscopy unit. Digital rectal exam was performed, which was unremarkable. A Pentax adult colonoscope was inserted in the anus and passed forward to the cecum in the usual fashion. The cecal base was identified by the appendiceal orifice as well as the ileocecal valve. The terminal ileum was not intubated. The colonoscope was slowly withdrawn in a gradual and circumferential manner with careful examination of the colonic mucosa. The quality of the prep was fair, but adequate to exclude any mass or lesion greater than 1 or 2 cm in size, inadequate to get a good examination of the colonic mucosa. There was no evidence of any old blood or active bleeding throughout the colon. We visualized, the colonic mucosa appeared normal. There were no polyps or mass or lesions visualized. There is severe diverticulosis of the colon, particularly in the left colon, including the sigmoid colon, descending colon, and transverse colon. There was no evidence of any bleeding. Retroflexion in the rectum demonstrates internal hemorrhoids. The colonoscope was completely withdrawn and the patient allowed to recover. The patient tolerated the procedure well. There were no immediate postprocedure complications. IMPRESSION: 1. Heavy diverticulosis in the sigmoid colon, descending colon, and transverse colon. 2. Internal hemorrhoids. 3. No old blood or active bleeding. 4. Fair bowel preparation, but adequate to exclude any colonic mass or lesion. RECOMMENDATION: 1. Advance diet. 2. No repeat colonoscopy due to the patient's age. 3. GI will sign off. The patient's recent bleeding episode likely represented a recurrence self-limited diverticular bleed. Please call back if needed. Job ID: [id number]
[2019-05-09] MEDS: Multivitamin W/ Minerals 1 TAB PO SCH (15:14)
[2019-05-09] MEDS: Carbidopa/Levodopa CR 50-200 mg Tablet PO SCH (15:15)
[2019-05-09] MEDS: Mirtazapine 15 MG Soltab PO SCH (15:15)
--- NOTE | 2019-05-09 16:27 | PDOC.HOSPP ---
- Subjective Encounter Date: 05/09/19 Encounter Time: 16:23 Subjective: Ms. Wagner was seen today in follow-up of Gi- bleed. She does not have any new complaints. - Objective Vital Signs & Weight: Vital Signs (12 hours) Temp Pulse Resp BP BP Pulse Ox 05/09/19 10:30 99.1 F 52 L 18 148/62 H 98 05/09/19 09:13 52 L 05/09/19 08:00 100.2 F H 52 L 18 103/45 L 100 05/09/19 05:30 50 L 98 Weight Weight 154 lb 4.8 oz I&O: 05/08/19 05/09/19 05/10/19 06:59 06:59 06:59 Intake Total 2119 Balance 2119 Result Diagrams: 05/08/19 05:18 05/08/19 16:35 Additional Labs: Accuchecks 05/09/19 05/09/19 05/08/19 11:27 04:08 20:31 POC Glucose 124 H 134 H 219 H 05/08/19 16:46 POC Glucose 113 H Hospitalist ROS - Medication Medications: Active Medications Generic Name Dose Route Start Last Admin Trade Name Freq PRN Reason Stop Dose Admin Acetaminophen 650 mg 05/06/19 09:17 05/08/19 00:59 Tylenol PO 650 mg Q4H PRN Administration Headache/Fever/Mild Pain (1-3) Bisacodyl 10 mg 05/07/19 18:05 05/07/19 22:47 Dulcolax [place] 10 mg Q2H PRN Administration Constipation Bisoprolol Fumarate 5 mg 05/08/19 09:00 05/09/19 09:51 Zebeta PO Not Given DAILY LANDRY Carbidopa/Levodopa 2 tab 05/08/19 09:00 05/09/19 15:15 Sinemet Cr 50/200 PO 2 tab DAILY LANDRY Administration Clonidine 0.3 mg 05/08/19 21:00 05/08/19 21:20 [id number]-5 TD 0.3 mg Q7D LANDRY Administration Dorzolamide/Timolol 1 drop 05/07/19 21:00 05/09/19 09:24 Cosopt 2-0.5% Ophth Soln R EYE 1 drop BID LANDRY Administration Hydralazine HCl 10 mg 05/06/19 09:18 05/08/19 18:34 Apresoline SLOW IVP 10 mg Q4H PRN Administration SBP > 180 and HR < 70 Hydralazine HCl 75 mg 05/07/19 21:00 05/09/19 09:13 Apresoline PO Not Given BID LANDRY Lactated Ringer's 1,000 mls @ 50 mls/hr 05/08/19 17:45 05/09/19 05:08 Lactated Ringer's IV 1,000 mls .Q20H LANDRY Administration Insulin Human Lispro 0 units 05/06/19 09:17 05/06/19 14:00 Humalog SC 4 unit .MODERATE SLIDING SC PRN Administration Moderate Correctional Scale Insulin Human Lispro 0 units 05/06/19 09:17 05/07/19 21:18 Humalog SC 3 unit .BEDTIME SLIDING SC PRN Administration Bedtime Correctional Scale Iron/Minerals/Multivitamins 1 tab 05/08/19 09:00 05/09/19 15:14 Theragran M PO 1 tab DAILY LANDRY Administration Isosorbide Mononitrate 60 mg 05/08/19 09:00 05/09/19 15:14 Imdur PO 60 mg DAILY LANDRY Administration Latanoprost 1 drop 05/07/19 21:00 05/08/19 21:30 Xalatan 0.005% Ophth Soln R EYE 1 drop HS LANDRY Administration Levetiracetam 500 mg 05/07/19 21:00 05/09/19 09:14 Keppra PO Not Given BID LANDRY Mirtazapine 7.5 mg 05/08/19 09:00 05/09/19 15:15 Remeron Soltab PO 7.5 mg DAILY LANDRY Administration Pantoprazole Sodium 40 mg 05/06/19 09:00 05/09/19 09:25 Protonix IVP 40 mg DAILY LANDRY Administration Ropinirole HCl 0.25 mg 05/07/19 21:00 05/09/19 15:11 Requip PO 0.25 mg TID LANDRY Administration Sodium Biphosphate/Sodium Phosphate 133 ml 05/07/19 18:05 05/08/19 00:59 Fleet Enema FS 133 ml Q2H PRN Administration Constipation Sodium Chloride 10 ml 05/07/19 13:26 05/09/19 09:25 Flush - Normal Saline IVF 10 ml PRN PRN Administration Saline Flush - Exam Eye: PERRL Heart: RRR, no murmur, no gallops, no rubs, normal peripheral pulses Respiratory: CTAB, no wheezes, no rales, no ronchi, normal chest expansion, no tachypnea, normal percussion Gastrointestinal: soft, non-tender, non-distended, normal bowel sounds, no palpable masses, no hepatomegaly Extremities: no cyanosis, no edema Hosp A/P (1) Rectal bleeding Code(s): K62.5 - HEMORRHAGE OF ANUS AND RECTUM Status: Acute (2) CAD (coronary artery disease), [place] coronary artery Code(s): I25.10 - ATHSCL HEART DISEASE OF [place] CORONARY ARTERY W/O ANG PCTRS Status: Acute Qualifiers: [place] vs. transplanted heart: [place] heart Associated angina: angina presence unspecified Qualified Code(s): I25.10 - Atherosclerotic heart disease of [place] coronary artery without angina pectoris (3) DM2 (diabetes mellitus, type 2) Status: Acute Qualifiers: Diabetes mellitus intermediate designer insulin use: with intermediate designer use Diabetes mellitus complication status: with unspecified complications (4) HLD (hyperlipidemia) Code(s): E78.5 - HYPERLIPIDEMIA, UNSPECIFIED Status: Acute (5) HTN (hypertension) Code(s): I10 - ESSENTIAL (PRIMARY) HYPERTENSION Status: Acute Qualifiers: Hypertension type: essential hypertension Qualified Code(s): I10 - Essential (primary) hypertension - Plan * Rectal bleeding-Colonoscopy results findings noted. She had significant diverticular disease, and this is the likely source of the bleeding * HTN- labile * Bradycardia-asymptomatic- likely due to her blood pressure medications- which are is her home regimen. Consider decrease in the Clonidine patch dose if her heart rate and blood pressure drop * CAD- stable * DM- blood glucose is stable * Hopefully back t NH tomorrow
[2019-05-09] MEDS ORDERED: traZODone HCl 50 MG TAB PO SCH (21:00)
[2019-05-09] MEDS: Latanoprost 0.005% Ophth Soln 2.5 ml Bottle R EYE SCH (21:26)
[2019-05-10] MEDS: HumaLOG 300 UNITS/3 ML VIAL SC PRN ×2 (06:27→15:58)
[2019-05-10] MEDS: hydrALAZINE 25 MG TAB PO SCH (08:37)
[2019-05-10] MEDS: Multivitamin W/ Minerals 1 TAB PO SCH (08:38)
[2019-05-10] MEDS: Carbidopa/Levodopa CR 50-200 mg Tablet PO SCH (08:38)
[2019-05-10] MEDS: rOPINIRole HCl 0.25 MG TAB PO SCH ×2 (08:39→15:54)
[2019-05-10] MEDS: Mirtazapine 15 MG Soltab PO SCH (08:39)
[2019-05-10] MEDS: levETIRAcetam 500 MG TAB PO SCH (08:39)
[2019-05-10] MEDS: DorzolamidE/Timolol 2%/0.5% Ophth Soln 10 ml Bottle R EYE SCH (08:42)
[2019-05-10] MEDS: Pantoprazole 40 MG VIAL IVP SCH (08:50)
[2019-05-10] MEDS: Bisoprolol Fumarate 5 MG TAB PO SCH (11:45)
[2019-05-10 16:02] VITALS: BP 185/74; TEMP 98.4
--- NOTE | 2019-05-11 03:23 | DIS ---
DATE OF ADMISSION: 05/05/2019 DATE OF DISCHARGE: 05/10/2019 DISCHARGE DISPOSITION: Back to the nursing facility. DISCHARGE DIAGNOSES: 1. Gastrointestinal bleed, likely due to diverticulosis. 2. Diverticulosis. 3. Coronary artery disease. 4. Cerebrovascular accident. 5. Chronic kidney disease. 6. Diabetes mellitus type 2. 7. Hypertension. 8. Anemia. CODE STATUS: Full code. ALLERGIES: NO KNOWN DRUG ALLERGIES. PROCEDURES DONE DURING THE ADMISSION: The patient had a colonoscopy in which it showed heavy diverticulosis in the sigmoid colon, descending colon, and transverse colon. There was internal hemorrhoids. There was no old blood or active bleeding. HOSPITAL COURSE: Ms. Wagner is a pleasant 83-year-old female, who was brought to the hospital after she was found to have bright red blood per rectum. This was seen when she was in the nursing facility. She was brought to the hospital and her hemoglobin and hematocrit were monitored, these remained stable. GI was consulted and the patient and family decided to proceed with colonoscopy. The colonoscopy showed or demonstrated significant diverticulosis. However, by the time the colonoscopy was done, there was no evidence of bleeding. Her H and H were stable and she was able to be discharged back to the nursing facility. Job ID: [id number]
== END 2019-05-10 17:03 | DRG 378 ==
LOC: ERS 19:58 → T4-B 23:42
PROVIDERS: ADMIT Family Medicine; ATTEND Family Medicine
PROC: 0DJD8ZZ Inspection of Lower Intestinal Tract, Via Natural or Artificial Opening Endoscopic (ICD-10-PCS; principal; 2019-05-09)
DX: K57.31 Diverticulosis of large intestine without perforation or abscess with bleeding (principal); D62 Acute posthemorrhagic anemia; I69.354 Hemiplegia and hemiparesis following cerebral infarction affecting left non-dominant side; N18.9 Chronic kidney disease, unspecified; I12.9 Hypertensive chronic kidney disease with stage 1 through stage 4 chronic kidney disease, or unspecified chronic kidney disease; I25.10 Atherosclerotic heart disease of native coronary artery without angina pectoris; E11.22 Type 2 diabetes mellitus with diabetic chronic kidney disease; E78.5 Hyperlipidemia, unspecified; E78.00 Pure hypercholesterolemia, unspecified; G30.9 Alzheimer's disease, unspecified; F02.80 Dementia in other diseases classified elsewhere, unspecified severity, without behavioral disturbance, psychotic disturbance, mood disturbance, and anxiety; F32.9 Major depressive disorder, single episode, unspecified; D63.1 Anemia in chronic kidney disease; Z96.653 Presence of artificial knee joint, bilateral; K56.41 Fecal impaction; K64.8 Other hemorrhoids; E87.6 Hypokalemia; R00.1 Bradycardia, unspecified; T46.5X5A Adverse effect of other antihypertensive drugs, initial encounter; Z90.49 Acquired absence of other specified parts of digestive tract; Z95.1 Presence of aortocoronary bypass graft; Z79.82 Long term (current) use of aspirin; Z79.899 Other long term (current) drug therapy
CPT/HCPCS: 36415; 36416; 74177; 80048; 80053; 82274; 83735; 85014; 85018; 85025; 86850; 86900; 86901; 93005; C9113; J0360; J2001; J2704; J7050; Q9967

== ENCOUNTER 2019-10-04 09:23 | Inpatient (IN) | payer MEDICARE, MEDICAID, OTHER ==
[2019-10-04] MEDS ORDERED: Cefepime 2 GM VIAL ONE (09:58)
[2019-10-04] MEDS ORDERED: Vancomycin 1 GM/200 ML BAG ONE (09:58)
--- NOTE | 2019-10-04 10:10 | RAD ---
Exam: Chest one view HISTORY:Altered mental status. Seizure Comparison: 10/10/2017 FINDINGS: Cardiac silhouette:Enlarged cardiac silhouette. Stable mediastinal clips and sternotomy wires Aorta: Unremarkable Pulmonary vessels: Normal Costophrenic angles: Clear LUNGS: Chronic lung parenchymal changes, without mass solid interpretation. Pneumothorax: None Osseous abnormalities: Chronic changes in both shoulders IMPRESSION: No acute cardiopulmonary process.
[2019-10-04 10:13] LABS: Hemoglobin 12.3 g/dL (12.0-16.0); Mean Corpuscular HGB CONC 33.2 g/dL (32.0-36.0); Mean Corpuscular Hemoglobin 32.8 pg (27.0-31.0); Mean Corpuscular Volume 98.6 fL (78.0-98.0); Mean Platelet Volume 8.7 fL (7.4-10.4); Platelet Count 167 thou/uL (130-400); RBC Distribution Width 12.7 % (11.5-14.5); Red Blood Cell (RBC) Count 3.76 mill/uL (4.20-5.40); White Blood Cell (WBC) Count 8.7 thou/uL (4.8-10.8)
[2019-10-04 10:17] LABS: Bacteria/HPF 4+ HPF (None Seen); Bilirubin Negative (Negative); Blood, Urine 1+ (Negative); Clarity Turbid (Clear); Glucose, Urine (Dipstick) Normal (Negative); Leukocyte 250 Leu/uL (Negative); Nitrite Negative (Negative); Protein, Urine (Dipstick) 30 mg/dL (Neg-Trace); Urobilinogen Normal mg/dL (Less than 2)
[2019-10-04 10:26] LABS: Band 1 % (5-11); Eosinophils 1 % (0-10); Lymphocytes 35 % (21-51); MDiff Complete? YES; Monocytes 3 % (0-10); Neutrophil 60 % (42-75); Platelet Morphology Comment Appears Adequate; RBC Morphology Normal
[2019-10-04 10:38] LABS: ALT (SGPT) Less than 7 U/L (8-55); AST (SGOT) 17 U/L (5-34); Albumin 3.7 g/dL (3.4-4.8); Alkaline Phosphatase 47 U/L (40-110); Anion Gap 13 mmol/L (10-20); BUN (Urea Nitrogen) 9 mg/dL (9.8-20.1); Bilirubin, Total 0.6 mg/dL (0.2-1.2); CK (CPK) 50 U/L (29-168); Calc. Creatinine Clearance 0 mL/min (70-130); Calcium 9.3 mg/dL (7.8-10.44); Carbon Dioxide 25 mmol/L (23-31); Chloride 108 mmol/L (98-107); Estimated GFR-MDRD 69; Globulin 2.9 g/dL (2.4-3.5); Glucose 132 mg/dL (83-110); Magnesium 2.1 mg/dL (1.6-2.6); Potassium 4.4 mmol/L (3.5-5.1); Protein, Total 6.6 g/dL (6.0-8.3); Sodium 142 mmol/L (136-145)
--- NOTE | 2019-10-04 10:42 | CT ---
CT head noncontrast HISTORY: Altered mental status. COMPARISON: 10/10/2017. FINDINGS: There is no evidence of acute intracranial hemorrhage or infarct. 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 Diffuse cortical atrophy and chronic ischemic small vessel disease are also again demonstrated. Old l acunar infarct at the left reema is stable. There is no mass effect or shift of midline structures. Visualized paranasal sinuses remain well aera karen. IMPRESSION : Continued evolution of the large right MCA infarct. No acute intracranial abnormalities are demonstrated.
[2019-10-04] MEDS ORDERED: Atropine Sulfate 1 mg/10 ml Syringe ONE (10:52)
[2019-10-04 10:59] LABS: CKMB 0.8 ng/mL (0-6.6)
[2019-10-04 11:14] LABS: Base Excess-Venous 0.7 mmol/L (-2.0 to 3.0); Bicarbonate (HCO3v) 22.9 mmol/L (22.0-28.0); CO2 Tension (PvCO2) 28.7 mmHg (40.0-50.0); Chloride 107 mmol/L (98-107); Potassium 3.7 mmol/L (3.5-5.1); Sodium 141 mmol/L (138-145); T. Carbon Dioxide 23.8 mmol/L (22.0-28.0); vO2 Saturation-calc 99.3 % (60.0-85.0)
[2019-10-04] MEDS ORDERED: Acetaminophen 325 MG TAB PO PRN (11:56)
[2019-10-04] MEDS ORDERED: Acetaminophen 650 MG Suppository PR PRN (11:56)
[2019-10-04] MEDS ORDERED: Ondansetron PF 4 MG/2 ML Vial IVP PRN (11:56)
[2019-10-04] MEDS ORDERED: HumaLOG 300 UNITS/3 ML VIAL SC PRN (11:56)
[2019-10-04] MEDS ORDERED: Dextrose 5% in Water 1,000 ML IV PRN (11:56)
[2019-10-04] MEDS ORDERED: Dextrose 50% Abboject 50 ML SYRINGE SLOW IVP PRN (11:56)
[2019-10-04 12:07] LABS: Platelet Count 167 thou/uL (130-400)
[2019-10-04 12:15] LABS: Fibrinogen 177 mg/dL (253-463); INR-International Normal Ratio 1.1; PTT 23.5 SEC (22.9-36.1); Prothrombin Time 14.5 SEC (12.0-14.7)
[2019-10-04 12:31] LABS: D-Dimer Test Greater than 20.00 *mcg/mL (0.27-0.43)
[2019-10-04 12:38] LABS: FSP-Qualitative ABNORMAL (Normal)
[2019-10-04 12:41] LABS: FSP-Semiquantitative >320 mcg/mL (Less than 5)
[2019-10-04] MEDS ORDERED: Atropine Sulfate 1 mg/10 ml Syringe IVP PRN (12:50)
[2019-10-04] MEDS ORDERED: Artificial Tear Sol 15 ML BOT EA EYE PRN (13:08)
--- NOTE | 2019-10-04 13:18 | HP ---
REASON FOR ADMISSION: Bradycardia, atrial flutter, sepsis, urinary tract infection, acute metabolic encephalopathy. HISTORY OF PRESENTING ILLNESS: Please note, the patient is completely obtunded at present and majority of this history is obtained by talking to Dr. Ledesma, ER physician, and prior medical records. The patient apparently was more lethargic at the correction, and was not eating or drinking. Her heart rate dropped down to 40s. On arrival, the patient was found to be in atrial flutter with 3:1 block with heart rates dipping down to 40s. She is currently not in distress, but is not arousable. She had a temperature of 100 degrees and a COVID-19 PCR has been obtained. Preliminary workup in the ER reveals urinary tract infection. Her CT brain does not reveal any acute CVA, but has a prior large right middle cerebral artery infarct. Chest x-ray does not show any acute infiltrate. Influenza A and B screen are negative. 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 CURRENT MEDICATIONS: They are in the process of obtaining her medication list from [facility]. The medication list has not accompanied the paperwork from correction. I will be shortly reviewing it once it arrives. ALLERGIES: NO KNOWN DRUG ALLERGIES. PERSONAL HISTORY: The patient is a [facility] resident in [place]. Does not abuse alcohol or drugs. She has eight children. FAMILY HISTORY: Mother had history of diabetes and heart disease. CODE STATUS: The patient has out of hospital do not attempt to resuscitate, which was signed on 09/08/2015. I have confirmed the same after speaking to patient's daughter, Ms. Ivette Lilly, number to reach her is [phone]. REVIEW OF SYSTEMS: Cannot be obtained as patient is not oriented. PHYSICAL EXAMINATION: GENERAL: The patient is an 84-year-old female, who is completely obtunded at present, but not in distress. VITAL SIGNS: Blood pressure 160/76. Pulse 60 per minute, is in atrial flutter on the monitor. Respiratory rate 16 per minute, saturating 98% on room air, and temperature 100.1 degrees Fahrenheit. NECK: Supple. No elevated JVD. HEENT: Eyes; extraocular muscles intact. Pupils reacting to light. Oral cavity, mucous membranes are dry. No exudates or congestion. CARDIOVASCULAR: S1, S2 heard. Irregular rhythm. Bradycardic. Murmur plus. RESPIRATORY: Air entry 1+ bilateral. Scattered rhonchi plus. No rales or wheezes. ABDOMEN: Soft. Bowel sounds heard. No tenderness, rigidity, or guarding. EXTREMITIES: There is peripheral edema in the both leg and foot areas. The patient appears to have tibial bone deformity in the left. CENTRAL NERVOUS SYSTEM: History of chronic left hemiparesis. She is currently obtunded and a complete neurologic exam cannot be completed. PSYCHIATRIC: Cannot be assessed as the patient is completely obtunded at present. LABORATORY DATA: EKG done shows atrial flutter with 3:1 block with a rate of around 60 per minute. White count of 8.7, H and H 12 and 37, platelet count is 167, MCV is 98 with 60% neutrophils, 35% lymphocytes, 1% bands. PT/INR, PTT within normal limits. D-dimer is elevated at 20. Venous blood gas done shows a pH of 7.50, pCO2 28, PO2 131. Sodium 141, potassium 4.4, chloride 108, serum bicarb 25, BUN is 9, creatinine 0.9. Serum glucose is 132. AST, ALT, and alkaline phosphatase are within normal limits. Lactic acid is 3.4, magnesium is 2.1. CK-MB 0.8, troponin I 0.10. BNP 454. Albumin is 3.7. CRP is less than 0.50. LDH 289. TSH 0.29. UA is positive for UTI. Influenza A and B antigens are negative. Stool occult blood is negative. Chest x-ray, no acute cardiopulmonary abnormalities. CT brain shows no acute infarct, but has findings of prior right middle cerebral artery infarct. She has a large area of encephalomalacia seen in the right temporal and frontal lobes. There is also diffuse cortical atrophy and chronic ischemic small vessel disease. Old lacunar infarct in the left reema is also visible. CLINICAL IMPRESSION AND PLAN: The patient will be admitted to Telemetry for atrial flutter with 3:1 block and bradycardia. Her clonidine transdermal patch will be held for now. We will obtain consultation with Dr. Don. She was given a dose of 1 mg atropine in the ER with heart rates promptly coming up to 60s with initial rates in the 40s. She is currently obtunded and we will keep her n.p.o. until she wakes up. A COVID-19 PCR has been obtained in the ER. The patient likely has low probability for coronavirus unless there is exposure in the correction. Will confirm the same shortly, if any other residents were exposed. She has UTI and will be placed on vancomycin and Zosyn until cultures are back. She has had blood and urine cultures obtained in the ER. We will switch her Keppra to IV 500 mg q.12 for history of seizure disorder. She will be on aspirin and Sinemet for history of Parkinson's, Alphagan, Cosopt eye drops, Humalog moderate scale q.12 hourly coverage in view of COVID-19 restrictions, hydralazine 75 mg twice daily, Imdur 60 mg daily. Gentle hydration with normal saline at 50 mL per hour. We will also continue ropinirole, which is given three times a day at the correction, again likely for Parkinson's. I have given complete updates to the patient's daughter, Ms. Ivette Lilly. I have also confirmed of the patient's do not attempt to resuscitate status with her. The patient's overall prognosis is guarded. We will obtain ultrasound venous Doppler of lower extremities to rule out DVT. A repeat TSH with free T3, free T4, echo with 2D Doppler for LV function. The prior echo from 2016 shows normal EF. Job ID: [id number]
[2019-10-04 13:49] LABS: Lactic Acid 1.7 mmol/L (0.5-2.2)
[2019-10-04] MEDS ORDERED: Piperacillin/Tazobactam 4.5 GM in Sodium Chloride 0.9% 100 ML IVPB SCH (14:00)
[2019-10-04] MEDS: Sodium Chloride 0.9% 1,000 ML IV SCH (14:22)
[2019-10-04] MEDS: rOPINIRole HCl 0.25 MG TAB PO SCH ×3 (15:54→23:00)
[2019-10-04] MEDS: Brimonidine Tartrate 0.2% Ophth Soln 5 ml Bottle R EYE SCH ×2 (15:54→23:55)
[2019-10-04] MEDS ORDERED: Albuterol Sulfate 2.5 mg/3 ml Neb ONE (15:56)
[2019-10-04] MEDS ORDERED: PROVENTIL INHALER 6.7 G (200 INHALATIONS) INH PRN (16:06)
[2019-10-04] MEDS ORDERED: Albuterol 200 PUFF (6.7GM INHALER) INH PRN ×2 (16:20→17:00)
[2019-10-04] MEDS ORDERED: DOBUTamine 500 mg/250 ml 250 ML IVPB SCH (16:45)
[2019-10-04 17:14] LABS: Troponin I 0.069 ng/mL (< 0.028)
[2019-10-04] MEDS: cefTRIAXone\\ROCEPHIN 2 GM in Sodium Chloride 0.9% 100 ML IVPB SCH (17:48)
--- NOTE | 2019-10-04 19:44 | CON ---
DATE OF CONSULTATION: HISTORY OF PRESENT ILLNESS: The patient is an 84-year-old woman with a long history of coronary artery disease, who presented with altered mental status and fever. The patient has previously underwent coronary artery bypass surgery nearly 20 years ago. She subsequently has been on medical therapy. She underwent a repeat catheterization in 2009, where she was found to have 2 of 3 patent bypass grafts with an occluded right coronary artery bypass graft. The patient has suffered a cerebrovascular accident. She has hemiplegia. The patient resides in a skilled nursing. She is unable to give any coherent history. The patient noted to have a fever and worsening mental status and admitted for further evaluation. PAST MEDICAL HISTORY: 1. Coronary artery disease. 2. Cerebrovascular accident. 3. Diabetes mellitus. 4. Hypertension. 5. Dyslipidemia. 6. Diverticulosis. PAST SURGICAL HISTORY: 1. Coronary artery bypass surgery. 2. Carotid endarterectomy. 3. Knee replacement. 4. Cholecystectomy. 5. Cataract surgery. MEDICATIONS: See nursing list. ALLERGIES: NO KNOWN DRUG ALLERGIES. REVIEW OF SYSTEMS: Unobtainable. FAMILY HISTORY: Unobtainable. PHYSICAL EXAMINATION: GENERAL: This patient is an elderly woman, in no acute distress, who is disoriented. VITAL SIGNS: With a blood pressure of 192/87. NECK: No jugular distention. LUNGS: Clear to auscultation. HEART: Regular rate and rhythm. Normal S1 and S2. No murmurs. ABDOMEN: Nondistended. EXTREMITIES: No edema. VASCULAR: Radial pulse 2+. LABORATORY DATA: Sodium was 142, potassium 4.4, chloride 108, bicarbonate 25, BUN 9, creatinine 0.93, and glucose 132. Troponin was 0.1. White blood cell count is 8.7, hemoglobin 12.3, hematocrit 37.1, platelets are 167. EKG atrial flutter with a slow ventricular response previous inferior infarct. IMPRESSION: 1. Altered mental status. 2. Atrial flutter with slow ventricular response. 3. History of coronary artery bypass surgery x3. 4. History of cerebrovascular accident. 5. Hemiplegia. 6. Dementia. 7. Urinary tract infection. PLAN: This patient presents with altered mental status. She appears to have a urinary tract infection. The patient now has atrial flutter with a slow ventricular response. The patient will be taken off her clonidine. The patient should have this medication should be held. We will follow this patient with you through her hospitalization. Job ID: [id number] DYLAN
[2019-10-04] MEDS: hydrALAZINE 25 MG TAB PO SCH (23:00)
[2019-10-04] MEDS: Nitroglycerin 2% Ointment 1 INCH/1 GM Packet TOP SCH (23:52)
[2019-10-04] MEDS: Latanoprost 0.005% Ophth Soln 2.5 ml Bottle R EYE SCH (23:54)
[2019-10-04] MEDS: DorzolamidE/Timolol 2%/0.5% Ophth Soln 10 ml Bottle R EYE SCH (23:55)
[2019-10-05] MEDS: Famotidine/PF 20 mg/2ml Vial SLOW IVP SCH ×3 (00:37→20:30)
[2019-10-05] MEDS: hydrALAZINE 20 MG/ML VIAL SLOW IVP PRN ×3 (00:37→16:42)
--- NOTE | 2019-10-05 06:46 | CON ---
DATE OF CONSULTATION: 10/04/2019 HISTORY OF PRESENT ILLNESS: I am seeing Ms. 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 Her problems are 1. Newly found atrial flutter with slow ventricular response. 2. History of coronary artery disease with prior coronary artery bypass grafting surgery. a. History of preserved LVEF at 55% to 60%, mild MR, TR, possible patent foramen ovale, [id number] shunt, diastolic dysfunction on echo December. 3. Fever, lethargy, on COVID-19 rule out protocol. 4. 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 5. History of dementia. 6. History of type 2 diabetes. 7. Hypertension. 8. Chronic depression. 9. Diverticulosis history. 10. Chronic anemia. ALLERGIES: NONE NOTED. MEDICATIONS: At home, please refer to list including, 1. Aspirin. 2. Furosemide. 3. Cholecalciferol. 4. Magnesium. 5. Linagliptin. 6. Carbidopa/levodopa. 7. Hydralazine. 8. Ferrous sulfate. 9. Losartan. 10. Dorzolamide. 11. Docusate. 12. Brimonidine. 13. Isosorbide mononitrate. 14. Mirtazapine. 15. Clonidine. 16. Tylenol. 17. Artificial Tears. 18. Polyethylene glycol. 19. Ondansetron. 20. Humulin-R. SUBJECTIVE: Ms. Wagner is obtunded, history obtained from Dr. Patel and the chart and the nurses. It seems that she is doing poorly with marked [facility]argy in jail. She stopped eating and drinking. She was found to have heart rate in the 100s and nasal swabs were obtained for COVID-19 PCR rule out. She had a CT scan which was negative for new strokes. An EKG was suggestive of atrial flutter, which appears to be new with slow ventricular response in the 50s, on occasion drifting down to the 40s. She does not pass out with this. Rest of review of systems is otherwise unremarkable. I was asked by Dr. Patel to evaluate her EKGs and potential recommendation for her heart rate control. PAST MEDICAL HISTORY: As above. SOCIAL HISTORY: She is a jail resident. No history of smoking, EtOH, or drug abuse. FAMILY HISTORY: Significant for mother having diabetes and heart disease. OBJECTIVE: VITAL SIGNS: Temperature currently 96.3, heart rate 54, respiratory rate 12, blood pressure is 207/97. In the ER, temperature was 100 degrees Fahrenheit. LABORATORY AND DIAGNOSTIC STUDIES: EKG is reviewed, revealing atrial flutter with slow ventricular rate response and 5:1 and 6:1 conduction at times. Ventricular rates varied between 40 to 70 beats per minute. LABORATORY DATA: White cell count 8.7, hemoglobin 12.3, platelet count is 167. INR 1.1. PCO2 28, PO2 131. Sodium 141, potassium 3.7, BUN is 15, creatinine is 0.93. AST is 17, ALT less than 7. TSH 0.2997. ASSESSMENT AND PLAN: Ms. Wagner is an unfortunate 84-year-old woman who has prior history of stroke, possible patent foramen ovale who is presenting with increased lethargy and noted to be in atrial flutter with on occasion slow ventricular response. The flutter morphology appears to be typically isthmus dependent. She is currently being ruled out from COVID-19 infection. She also currently is in DNR state. I discussed the recommendation with Dr. Patel. Low-dose dobutamine therapy would likely be reasonable in the face of the significant hypertension. Alternatively, atropine could be administered periodically. A 2D echocardiogram once COVID-19 ruled out could be reasonable and if ventricular rates are difficult to control anticoagulation, she could be considered for a cardioversion or even ablation procedure as an outpatient. Pacing therapy is a consideration at this point, though in view of the unknown COVID status, I would hold off on that. Thank you for allowing me to participate in the care of this patient. Job ID: [id number] [facility]
[2019-10-05 07:30] LABS: ALT (SGPT) 7 U/L (8-55); AST (SGOT) 14 U/L (5-34); Albumin 3.7 g/dL (3.4-4.8); Alkaline Phosphatase 51 U/L (40-110); Anion Gap 18 mmol/L (10-20); BUN (Urea Nitrogen) 7 mg/dL (9.8-20.1); Bilirubin, Total 0.8 mg/dL (0.2-1.2); Calc. Creatinine Clearance 61 mL/min (70-130); Calcium 8.9 mg/dL (7.8-10.44); Carbon Dioxide 17 mmol/L (23-31); Chloride 108 mmol/L (98-107); Estimated GFR-MDRD Greater than 90; Globulin 2.8 g/dL (2.4-3.5); Glucose 131 mg/dL (83-110); Protein, Total 6.5 g/dL (6.0-8.3); Sodium 140 mmol/L (136-145)
[2019-10-05] MEDS: Aspirin 81 mg Enteric Coated Tablet PO SCH (07:40)
[2019-10-05] MEDS: hydrALAZINE 25 MG TAB PO SCH ×3 (07:40→20:29)
[2019-10-05] MEDS: Carbidopa/Levodopa CR 50-200 mg Tablet PO SCH (07:40)
[2019-10-05 07:41] LABS: Free T4 (Free Thyroxine) 1.27 ng/dL (0.70-1.48); Thyroid Stimulating Hormone 0.3258 uIU/mL (0.35-4.94)
[2019-10-05] MEDS: rOPINIRole HCl 0.25 MG TAB PO SCH ×3 (07:41→20:30)
[2019-10-05] MEDS: Enoxaparin Sodium 40 MG/0.4 ML SYRINGE SC SCH (07:53)
[2019-10-05] MEDS: Nitroglycerin 2% Ointment 1 INCH/1 GM Packet TOP SCH ×3 (07:53→20:30)
[2019-10-05] MEDS: Brimonidine Tartrate 0.2% Ophth Soln 5 ml Bottle R EYE SCH ×2 (08:00→16:42)
[2019-10-05] MEDS: DorzolamidE/Timolol 2%/0.5% Ophth Soln 10 ml Bottle R EYE SCH ×2 (08:01→20:32)
[2019-10-05] MEDS: Sodium Chloride 0.9% 1,000 ML IV SCH (08:01)
[2019-10-05] MEDS ORDERED: Vancomycin HCl 750 MG in Sodium Chloride 0.9% 250 ML 300 ML IVPB SCH (10:00)
[2019-10-05] MEDS ORDERED: Vancomycin HCl 750 MG in Sodium Chloride 0.9% 250 ML 250 ML IVPB SCH (10:00)
--- NOTE | 2019-10-05 10:36 | PDOC.HOSPP ---
- Subjective Encounter Date: 10/05/19 Encounter Time: 09:55 Subjective: awake, responds to few questions, tries to move her legs but not much not in distress - Objective Vital Signs & Weight: Vital Signs (12 hours) Temp Pulse Resp BP BP Pulse Ox 10/05/19 08:00 98.1 F 81 16 175/85 H 97 10/05/19 07:40 88 10/05/19 07:23 97 10/05/19 06:24 88 166/70 H 10/05/19 06:01 65 185/79 H 10/05/19 04:21 99.0 F 63 17 198/80 H 97 10/05/19 01:09 62 174/80 H 10/05/19 00:37 42 L 10/05/19 00:09 56 L 207/90 H 10/05/19 00:04 98.4 F 18 97 10/04/19 23:00 62 207/80 H Weight Weight 133 lb 1.6 oz I&O: 10/04/19 10/05/19 10/06/19 06:59 06:59 06:59 Intake Total 350 Output Total 1375 Balance -1025 Result Diagrams: 10/04/19 09:55 10/05/19 06:48 Additional Labs: Accuchecks 10/05/19 10/04/19 06:11 17:58 POC Glucose 124 H 108 Hospitalist ROS - Medication Medications: Active Medications Generic Name Dose Route Start Last Admin Trade Name Freq PRN Reason Stop Dose Admin Aspirin 81 mg 10/05/19 09:00 10/05/19 07:40 Ecotrin PO Not Given DAILY [facility] Brimonidine Tartrate 1 drop 10/05/19 08:00 10/05/19 08:00 Alphagan 0.2% Ophth Soln R EYE 1 drop 0800,1600,2359 LANDRY Administration Carbidopa/Levodopa 2 tab 10/05/19 09:00 10/05/19 07:40 Sinemet Cr 50/200 PO Not Given DAILY LANDRY Dorzolamide/Timolol 1 drop 10/04/19 21:00 10/05/19 08:01 Cosopt 2-0.5% Ophth Soln R EYE 1 drop BID LANDRY Administration Enoxaparin Sodium 40 mg 10/05/19 09:00 10/05/19 07:53 Lovenox SC 40 mg 0900 LANDRY Administration Famotidine 20 mg 10/04/19 21:00 10/05/19 07:53 Pepcid SLOW IVP 20 mg Q12HR LANDRY Administration Hydralazine HCl 10 mg 10/05/19 00:03 10/05/19 06:01 Apresoline SLOW IVP 10 mg Q4H PRN Administration SBP Greater Than 180 Sodium Chloride 1,000 mls @ 50 mls/hr 10/04/19 12:00 10/05/19 08:01 Normal Saline 0.9% IV 1,000 mls .Q20H LANDRY Administration Levetiracetam 500 mg/ Device 100 mls @ 200 mls/hr 10/04/19 21:00 10/05/19 08: 01 IVPB 100 mls BID LANDRY Administration Dobutamine HCl/Dextrose 250 mls @ 4.355 mls/hr 10/04/19 16:45 10/04/19 17:44 Dobutamine 500 Mg/250 Ml IVPB 250 mls INF LANDRY Administration 2.5 MCG/KG/MIN Ceftriaxone Sodium 2 gm/ 100 mls @ 200 mls/hr 10/04/19 17:00 10/04/19 17:48 Sodium Chloride IVPB 100 mls Q24HR LANDRY Administration Isosorbide Mononitrate 60 mg 10/05/19 09:00 10/05/19 07:40 Imdur PO Not Given DAILY LANDRY Latanoprost 1 drop 10/04/19 21:00 10/04/19 23:54 Xalatan 0.005% Ophth Soln R EYE 1 drop HS LANDRY Administration Nitroglycerin 2 inch 10/04/19 21:00 10/05/19 07:53 Nitro-Bid 2% Ointment TOP 2 inch TID LANDRY Administration Ropinirole HCl 0.25 mg 10/04/19 15:00 10/05/19 07:41 Requip PO Not Given TID LANDRY - Exam General Appearance: ill appearing Eye: PERRL, anicteric sclera ENT: no oropharyngeal lesions, dry oral mucosa Neck: supple, no JVD Heart: no murmur, irregular Respiratory: no wheezes, no rales Gastrointestinal: soft, non-tender, non-distended, normal bowel sounds Extremities: no cyanosis, no edema Neurological: hemiplegia Hosp A/P (1) Atrial flutter Code(s): I48.92 - UNSPECIFIED ATRIAL FLUTTER Status: Acute (2) Sepsis Code(s): A41.9 - SEPSIS, UNSPECIFIED ORGANISM Status: Acute Qualifiers: Sepsis type: sepsis due to unspecified organism Sepsis acute organ dysfunction status: with acute organ dysfunction Severe sepsis acute organ dysfunction type: encephalopathy Severe sepsis shock status: without septic shock Qualified Code(s): A41.9 - Sepsis, unspecified organism; R65.20 - Severe sepsis without septic shock; G93.40 - Encephalopathy, unspecified (3) DM2 (diabetes mellitus, type 2) Status: Chronic Qualifiers: Diabetes mellitus prison insulin use: without pens and pencils dipper use (4) Encephalopathy Code(s): G93.40 - ENCEPHALOPATHY, UNSPECIFIED Status: Acute (5) H/O: CVA (cerebrovascular accident) Code(s): Z86.73 - PRSNL HX OF TIA (TIA), AND CEREB INFRC W/O RESID DEFICITS Status: Chronic (6) HLD (hyperlipidemia) Code(s): E78.5 - HYPERLIPIDEMIA, UNSPECIFIED Status: Chronic Qualifiers: Hyperlipidemia type: unspecified Qualified Code(s): E78.5 - Hyperlipidemia , unspecified (7) HTN (hypertension) Code(s): I10 - ESSENTIAL (PRIMARY) HYPERTENSION Status: Chronic Qualifiers: (8) Hypertensive emergency Code(s): I16.1 - HYPERTENSIVE EMERGENCY Status: Acute (9) Seizure Code(s): R56.9 - UNSPECIFIED CONVULSIONS Status: Chronic (10) UTI (urinary tract infection) Status: Acute Qualifiers: Urinary tract infection type: acute cystitis Hematuria presence: without hematuria Qualified Code(s): N30.00 - Acute cystitis without hematuria (11) Bradycardia Code(s): R00.1 - BRADYCARDIA, UNSPECIFIED Status: Acute - Plan heart rate is trending around 80's on dobutamine drip, still in atrial flutter to stop dobutamine for 2 hrs and see if she maintains pulse above 50/min is awake but not fully oriented htn is still uncontrolled, on hydralazine 100mg tid, imdur, lasix. Off clonidine patch ceftriaxone for uti, await cultures covid 19 low probability, await results continue levodopa, remeron as before d/w daughter and gave full updates over phone.
[2019-10-05] MEDS ORDERED: Furosemide 40 MG/4 ML VIAL SLOW IVP SCH (10:45)
[2019-10-05] MEDS ORDERED: Enalaprilat Dihydrate 1.25 MG in Dextrose 5% in Water 50 ML IVPB SCH (12:00)
[2019-10-05 12:31] LABS: #Eosinphils 0.3 thou/uL (0.0-0.7); #Monocytes 0.9 thou/uL (0.11-0.59); #Neutrophils 8.9 thou/uL (1.40-6.50); %Basophils 0.3 % (0.0-1.0); %Eosinophils 2.5 % (0.0-10.0); %Lymphocytes 16.7 % (21.0-51.0); %Monocytes 7.6 % (0.0-10.0); %Neutrophils 72.9 % (42.0-75.0); Mean Corpuscular Hemoglobin 31.9 pg (27.0-31.0); Mean Corpuscular Volume 99.8 fL (78.0-98.0); Mean Platelet Volume 8.4 fL (7.4-10.4); Platelet Count 200 thou/uL (130-400); RBC Distribution Width 12.6 % (11.5-14.5); Red Blood Cell (RBC) Count 4.38 mill/uL (4.20-5.40); White Blood Cell (WBC) Count 12.2 thou/uL (4.8-10.8)
[2019-10-05] MEDS: Enalaprilat Dihydrate 1.25 MG/ML VIAL SLOW IVP SCH ×2 (14:59→20:31)
[2019-10-05] MEDS: cefTRIAXone\\ROCEPHIN 2 GM in Sodium Chloride 0.9% 100 ML IVPB SCH (16:48)
[2019-10-05] MEDS: Latanoprost 0.005% Ophth Soln 2.5 ml Bottle R EYE SCH (20:32)
[2019-10-06] MEDS: Brimonidine Tartrate 0.2% Ophth Soln 5 ml Bottle R EYE SCH ×3 (00:15→17:04)
[2019-10-06] MEDS: Enalaprilat Dihydrate 1.25 MG/ML VIAL SLOW IVP SCH ×4 (02:10→20:50)
[2019-10-06] MEDS: Sodium Chloride 0.9% 1,000 ML IV SCH (06:05)
[2019-10-06] MEDS: hydrALAZINE 20 MG/ML VIAL SLOW IVP PRN ×2 (06:11→12:26)
[2019-10-06] MEDS: DorzolamidE/Timolol 2%/0.5% Ophth Soln 10 ml Bottle R EYE SCH ×2 (08:54→20:58)
[2019-10-06] MEDS: Nitroglycerin 2% Ointment 1 INCH/1 GM Packet TOP SCH ×3 (08:55→20:50)
[2019-10-06] MEDS: Famotidine/PF 20 mg/2ml Vial SLOW IVP SCH ×2 (08:55→20:50)
[2019-10-06] MEDS: Enoxaparin Sodium 40 MG/0.4 ML SYRINGE SC SCH (08:57)
[2019-10-06] MEDS: Aspirin 81 mg Enteric Coated Tablet PO SCH (08:59)
[2019-10-06] MEDS: Carbidopa/Levodopa CR 50-200 mg Tablet PO SCH (08:59)
[2019-10-06] MEDS: hydrALAZINE 25 MG TAB PO SCH ×3 (08:59→20:52)
[2019-10-06] MEDS: rOPINIRole HCl 0.25 MG TAB PO SCH ×3 (09:00→20:51)
[2019-10-06] MEDS ORDERED: Furosemide 40 MG/4 ML VIAL SLOW IVP SCH (09:00)
--- NOTE | 2019-10-06 10:56 | PDOC.HOSPP ---
- Subjective Encounter Date: 10/06/19 Encounter Time: 08:30 Subjective: is awake, responds minimally to verbal stimuli, says a few sentences, follows verbal stimuli is weak in her legs, has large tongue, no dentures, wants to try some food no sob or cough - Objective Vital Signs & Weight: Vital Signs (12 hours) Temp Pulse Resp BP BP Pulse Ox 10/06/19 10:15 64 179/86 H 10/06/19 08:56 180/73 H 10/06/19 08:40 98.6 F 87 18 180/73 H 99 10/06/19 06:11 63 207/95 H 10/06/19 04:20 98.4 F 65 18 150/75 H 98 10/06/19 02:10 155/70 H 10/06/19 00:15 99.3 F 75 18 144/72 H 98 Weight Admit Weight 133 lb Weight 133 lb 1.6 oz I&O: 10/05/19 10/06/19 10/07/19 06:59 06:59 06:59 Intake Total 350 1575 Output Total 1375 2600 Balance -1025 -1025 Result Diagrams: 10/05/19 12:22 10/05/19 06:48 Additional Labs: Accuchecks 10/06/19 10/05/19 06:05 18:42 POC Glucose 111 H 129 H Hospitalist ROS - Medication Medications: Active Medications Generic Name Dose Route Start Last Admin Trade Name Freq PRN Reason Stop Dose Admin Aspirin 81 mg 10/05/19 09:00 10/06/19 08:59 Ecotrin PO Not Given DAILY [facility] Brimonidine Tartrate 1 drop 10/05/19 08:00 10/06/19 08:54 Alphagan 0.2% Ophth Soln R EYE 1 drop 0800,1600,2359 LANDRY Administration Carbidopa/Levodopa 2 tab 10/05/19 09:00 10/06/19 08:59 Sinemet Cr 50/200 PO Not Given DAILY LANDRY Dorzolamide/Timolol 1 drop 10/04/19 21:00 10/06/19 08:54 Cosopt 2-0.5% Ophth Soln R EYE 1 drop BID LANDRY Administration Enalaprilat 1.25 mg 10/05/19 14:00 10/06/19 08:56 Vasotec SLOW IVP 1.25 mg Q6H LANDRY Administration Enoxaparin Sodium 40 mg 10/05/19 09:00 10/06/19 08:57 Lovenox SC 40 mg 0900 LANDRY Administration Famotidine 20 mg 10/04/19 21:00 10/06/19 08:55 Pepcid SLOW IVP 20 mg Q12HR LANDRY Administration Furosemide 40 mg 10/06/19 09:00 10/06/19 08:55 Lasix SLOW IVP 40 mg DAILY LANDRY Administration Hydralazine HCl 10 mg 10/05/19 00:03 10/06/19 06:11 Apresoline SLOW IVP 10 mg Q4H PRN Administration SBP Greater Than 180 Hydralazine HCl 100 mg 10/05/19 15:00 10/06/19 08:59 Apresoline PO Not Given TID LANDRY Sodium Chloride 1,000 mls @ 50 mls/hr 10/04/19 12:00 10/06/19 06:05 Normal Saline 0.9% IV 1,000 mls .Q20H LANDRY Administration Levetiracetam 500 mg/ Device 100 mls @ 200 mls/hr 10/04/19 21:00 10/06/19 08: 54 IVPB 100 mls BID LANDRY Administration Ceftriaxone Sodium 2 gm/ 100 mls @ 200 mls/hr 10/04/19 17:00 10/05/19 16:48 Sodium Chloride IVPB 100 mls Q24HR LANDRY Administration Isosorbide Mononitrate 60 mg 10/05/19 09:00 10/06/19 09:00 Imdur PO Not Given DAILY LANDRY Latanoprost 1 drop 10/04/19 21:00 10/05/19 20:32 Xalatan 0.005% Ophth Soln R EYE 1 drop HS LANDRY Administration Nitroglycerin 2 inch 10/04/19 21:00 10/06/19 08:55 Nitro-Bid 2% Ointment TOP 2 inch TID LANDRY Administration Ropinirole HCl 0.25 mg 10/04/19 15:00 10/06/19 09:00 Requip PO Not Given TID LANDRY - Exam General Appearance: awake alert, ill appearing Eye: PERRL, anicteric sclera ENT: no oropharyngeal lesions, dry oral mucosa Neck: supple, no JVD Heart: irregular, murmur present Respiratory: no wheezes, no rales Gastrointestinal: soft, non-tender, non-distended, normal bowel sounds Extremities: no cyanosis, no edema Neurological: cranial nerve grossly intact, no new deficit Hosp A/P (1) Atrial flutter Code(s): I48.92 - UNSPECIFIED ATRIAL FLUTTER Status: Acute (2) Sepsis Code(s): A41.9 - SEPSIS, UNSPECIFIED ORGANISM Status: Acute Qualifiers: Sepsis type: sepsis due to unspecified organism Sepsis acute organ dysfunction status: with acute organ dysfunction Severe sepsis acute organ dysfunction type: encephalopathy Severe sepsis shock status: without septic shock Qualified Code(s): A41.9 - Sepsis, unspecified organism; R65.20 - Severe sepsis without septic shock; G93.40 - Encephalopathy, unspecified (3) DM2 (diabetes mellitus, type 2) Status: Chronic Qualifiers: Diabetes mellitus residential insulin use: without residential use (4) Encephalopathy Code(s): G93.40 - ENCEPHALOPATHY, UNSPECIFIED Status: Acute (5) H/O: CVA (cerebrovascular accident) Code(s): Z86.73 - PRSNL HX OF TIA (TIA), AND CEREB INFRC W/O RESID DEFICITS Status: Chronic (6) HLD (hyperlipidemia) Code(s): E78.5 - HYPERLIPIDEMIA, UNSPECIFIED Status: Chronic Qualifiers: Hyperlipidemia type: unspecified Qualified Code(s): E78.5 - Hyperlipidemia , unspecified (7) HTN (hypertension) Code(s): I10 - ESSENTIAL (PRIMARY) HYPERTENSION Status: Chronic Qualifiers: (8) Hypertensive emergency Code(s): I16.1 - HYPERTENSIVE EMERGENCY Status: Resolved (9) Seizure Code(s): R56.9 - UNSPECIFIED CONVULSIONS Status: Chronic (10) UTI (urinary tract infection) Status: Acute Qualifiers: Urinary tract infection type: acute cystitis Hematuria presence: without hematuria Qualified Code(s): N30.00 - Acute cystitis without hematuria (11) Bradycardia Code(s): R00.1 - BRADYCARDIA, UNSPECIFIED Status: Acute - Plan heart rate is trending around 50-70, off dobutamine drip, still in atrial flutter with 2:1 sometimes 4:1 block is awake but not fully oriented htn labile, on hydralazine 100mg tid, imdur, lasix. Off clonidine patch ceftriaxone for uti, urine cs is growing e.coli, blood cs x2 -ve covid 19 low probability, await results continue levodopa, remeron as before d/w daughter and gave full updates over phone. speech eval and oral diet as adv
[2019-10-06] MEDS: cefTRIAXone\\ROCEPHIN 2 GM in Sodium Chloride 0.9% 100 ML IVPB SCH (16:39)
[2019-10-06] MEDS ORDERED: hydrALAZINE 25 MG TAB PO SCH (16:45)
[2019-10-06] MEDS: Latanoprost 0.005% Ophth Soln 2.5 ml Bottle R EYE SCH (20:50)
[2019-10-07] MEDS: Brimonidine Tartrate 0.2% Ophth Soln 5 ml Bottle R EYE SCH ×3 (00:44→15:42)
[2019-10-07] MEDS: hydrALAZINE 20 MG/ML VIAL SLOW IVP PRN (00:55)
[2019-10-07] MEDS: Enalaprilat Dihydrate 1.25 MG/ML VIAL SLOW IVP SCH ×4 (03:18→21:04)
[2019-10-07] MEDS: Sodium Chloride 0.9% 1,000 ML IV SCH (03:20)
[2019-10-07 06:15] LABS: Anion Gap 22 mmol/L (10-20); BUN (Urea Nitrogen) 9 mg/dL (9.8-20.1); Calc. Creatinine Clearance 50 mL/min (70-130); Calcium 9.5 mg/dL (7.8-10.44); Carbon Dioxide 16 mmol/L (23-31); Chloride 109 mmol/L (98-107); Estimated GFR-MDRD 85; Glucose 168 mg/dL (83-110); Potassium 3.7 mmol/L (3.5-5.1); Sodium 143 mmol/L (136-145)
[2019-10-07] MEDS ORDERED: Carvedilol 3.125 MG TAB PO SCH (08:30)
--- NOTE | 2019-10-07 08:34 | PDOC.CPN ---
- Subjective Date: 10/07/19 Time: 08:30 Interval history: The pt seen and examined. No overnight events. No cardiac complaints. - Objective Allergies/Adverse Reactions: Allergies Allergy/AdvReac Type Severity Reaction Status Date / Time No Known Allergies Allergy Verified 09/06/19 12:18 Visit Medications: Current Medications Acetaminophen (Tylenol) 650 mg PO Q4H PRN PRN Reason: Headache/Fever/Mild Pain (1-3) Acetaminophen (Tylenol) 650 mg [place] Q4H PRN PRN Reason: Headache/Fever/Mild Pain (1-3) Albuterol Sulfate (Proventil Hfa) 2 puff INH Q2H PRN PRN Reason: HR <30 Artificial Tears (Liquitears 15ml Bottle) 0 drop EA EYE BIDPRN PRN PRN Reason: Dry Eyes Aspirin (Ecotrin) 81 mg PO DAILY [facility] Last Admin: 10/06/19 08:59 Dose: Not Given Atropine Sulfate (Atropine) 1 mg IVP Q6H PRN PRN Reason: for heart rate <40/min Brimonidine Tartrate (Alphagan 0.2% Ophth Soln) 1 drop R EYE 0800,1600,2359 [facility] Last Admin: 10/07/19 00:44 Dose: 1 drop Carbidopa/Levodopa (Sinemet Cr 50/200) 2 tab PO DAILY [facility] Last Admin: 10/06/19 08:59 Dose: Not Given Carvedilol (Coreg) 3.125 mg PO BID-[facility] Carvedilol (Coreg) 3.125 mg PO NOW [facility] Stop: 10/07/19 11:00 Dextrose/Water (Dextrose 50%) 25 gm SLOW IVP PRN PRN PRN Reason: Hypoglycemia Dorzolamide/Timolol (Cosopt 2-0.5% Ophth Soln) 1 drop R EYE BID [facility] Last Admin: 10/06/19 20:58 Dose: 1 drop Enalaprilat (Vasotec) 1.25 mg SLOW IVP Q6H [facility] Last Admin: 10/07/19 03:18 Dose: 1.25 mg Enoxaparin Sodium (Lovenox) 40 mg SC 0900 [facility] Last Admin: 10/06/19 08:57 Dose: 40 mg Famotidine (Pepcid) 20 mg SLOW IVP Q12HR [facility] Last Admin: 04/19/20 20:50 Dose: 20 mg Glucagon (Glucagon) 1 mg IM PRN PRN PRN Reason: Hypoglycemia Hydralazine HCl (Apresoline) 10 mg SLOW IVP Q4H PRN PRN Reason: SBP Greater Than 180 Last Admin: 10/07/19 00:55 Dose: 10 mg Hydralazine HCl (Apresoline) 100 mg PO TID [facility] Last Admin: 10/06/19 20:52 Dose: 100 mg Dextrose/Water (D5w) 1,000 mls @ 0 mls/hr IV .Q0M PRN PRN Reason: Hypoglycemia Sodium Chloride (Normal Saline 0.9%) 1,000 mls @ 50 mls/hr IV .Q20H [facility] Last Admin: 10/07/19 03:20 Dose: 1,000 mls Levetiracetam 500 mg/ Device 100 mls @ 200 mls/hr IVPB BID [facility] Last Admin: 10/06/19 20:52 Dose: 100 mls Ceftriaxone Sodium 2 gm/ (Sodium Chloride) 100 mls @ 200 mls/hr IVPB Q24HR [facility] Last Admin: 10/06/19 16:39 Dose: 100 mls Insulin Human Lispro (Humalog) 0 units SC .MODERATE SLIDING SC PRN PRN Reason: Moderate Correctional Scale Isosorbide Mononitrate (Imdur) 60 mg PO DAILY [facility] Last Admin: 10/06/19 09:00 Dose: Not Given Latanoprost (Xalatan 0.005% Ophth Soln) 1 drop R EYE HS [facility] Last Admin: 10/06/19 20:50 Dose: 1 drop Losartan Potassium (Cozaar) 50 mg PO DAILY [facility] Nitroglycerin (Nitro-Bid 2% Ointment) 2 inch TOP TID [facility] Last Admin: 10/06/19 20:50 Dose: 2 inch Ondansetron HCl (Zofran) 4 mg IVP Q6H PRN PRN Reason: Nausea/Vomiting Ropinirole HCl (Requip) 0.25 mg PO TID [facility] Last Admin: 10/06/19 20:51 Dose: 0.25 mg Sodium Chloride (Flush - Normal Saline) 10 ml IVF Q12HR [facility] Sodium Chloride (Flush - Normal Saline) 10 ml IVF PRN PRN PRN Reason: Saline Flush Vital Signs & Weight: Vital Signs Temp Pulse Resp BP BP Pulse Ox 10/07/19 03:18 97.7 F 87 20 185/81 H 97 10/07/19 00:55 65 211/90 H 10/07/19 00:44 97.5 F L 65 20 211/90 H 97 10/06/19 20:50 97.3 F L 86 20 184/88 H 98 Admit Weight 133 lb Weight 134 lb 11.2 oz - Physical Exam General: other (alarted and follow commands sometimes) Neck: supple neck Cardiac: irregularly regular Lungs: decreased breath sounds Extremities: no edema Musculoskeletal: decreased range of motion - Labs Result Diagrams: 10/05/19 12:22 10/07/19 05:21 Troponin/CKMB CK-MB (CK-2) 0.8 ng/mL (0-6.6) 10/04/19 09:55 Troponin I 0.069 ng/mL (< 0.028) H 10/04/19 16:40 - Telemetry Supraventricular conduction: atrial flutter - Assessment/Plan Assessment/Plan: 1. New onset Atrial flutter - will start coreg 3.125mg BID from this AM for HR 90-110s this AM and HTN management; will change Lovenox from 40mg qd to 60mg BID 2. HTN - Dobutamine drip is off; Will start Coreg 3.125mg BID and Losartan 50mg qd from this AM 3. Urosepsis - on IV ABX 4. CAD with hx of CABG - 5. DM type 2 6. Hx of CVA 7. Seizure 9. Hx of dementia MAR reviewed * Echo in 02/2019 (at Dr Sanchez' office) with EF 50-55%, mildly akinetic inferior wall, mild LAE, mild AR, MR, TR Pt. seen and eval. by me. I agree with the A/P by the [employer]. She has a UTI and this with the fever may be the cause of the atrial flutter.Appreciate dr. Burr' s assistance. Hopefully she will not need a pacemaker. Will definitely need to discuss with the family. Chest clear. Slightly irregular rhythm at this time, rate controlled. gjm <Addendum> Diltiazem drip 5mg/h was started for HR > 130s.
[2019-10-07] MEDS: hydrALAZINE 25 MG TAB PO SCH ×3 (08:58→20:36)
[2019-10-07] MEDS: Aspirin 81 mg Enteric Coated Tablet PO SCH (08:58)
[2019-10-07] MEDS: rOPINIRole HCl 0.25 MG TAB PO SCH ×3 (08:58→20:36)
[2019-10-07] MEDS: Carbidopa/Levodopa CR 50-200 mg Tablet PO SCH (08:58)
[2019-10-07] MEDS: Losartan 25 MG TAB PO SCH (08:59)
[2019-10-07] MEDS: Famotidine/PF 20 mg/2ml Vial SLOW IVP SCH ×2 (08:59→20:37)
[2019-10-07] MEDS: Nitroglycerin 2% Ointment 1 INCH/1 GM Packet TOP SCH ×3 (09:04→20:36)
[2019-10-07] MEDS: Enoxaparin Sodium 60 MG/0.6 ML SYRINGE SC SCH ×2 (09:05→20:37)
[2019-10-07] MEDS ORDERED: Diltiazem 125 MG in Sodium Chloride 0.9% 100 ML IVPB SCH (11:00)
[2019-10-07] MEDS: DorzolamidE/Timolol 2%/0.5% Ophth Soln 10 ml Bottle R EYE SCH ×2 (11:36→20:37)
--- NOTE | 2019-10-07 12:33 | PDOC.HOSPP ---
- Subjective Encounter Date: 10/07/19 Encounter Time: 12:27 Subjective: no complains - Objective Vital Signs & Weight: Vital Signs (12 hours) Temp Pulse Resp BP BP Pulse Ox 10/07/19 11:49 98.8 F 116 H 20 152/79 H 97 10/07/19 09:11 97.2 F L 112 H 18 208/88 H 99 10/07/19 03:18 97.7 F 87 20 185/81 H 97 10/07/19 00:55 65 211/90 H 10/07/19 00:44 97.5 F L 65 20 211/90 H 97 Weight Admit Weight 133 lb Weight 134 lb 11.2 oz I&O: 10/06/19 10/07/19 10/08/19 06:59 06:59 06:59 Intake Total 1575 2457 Output Total 2600 1250 Balance -1025 1207 Result Diagrams: 10/05/19 12:22 10/07/19 05:21 Additional Labs: Accuchecks 10/07/19 10/06/19 03:54 18:28 POC Glucose 167 H 183 H Hospitalist ROS - Medication Medications: Active Medications Generic Name Dose Route Start Last Admin Trade Name Freq PRN Reason Stop Dose Admin Aspirin 81 mg 10/05/19 09:00 10/07/19 08:58 Ecotrin PO 81 mg DAILY [facility] Administration Brimonidine Tartrate 1 drop 10/05/19 08:00 10/07/19 11:36 Alphagan 0.2% Ophth Soln R EYE Not Given 0800,1600,2359 [facility] Carbidopa/Levodopa 2 tab 10/05/19 09:00 10/07/19 08:58 Sinemet Cr 50/200 PO 2 tab DAILY [facility] Administration Dorzolamide/Timolol 1 drop 10/04/19 21:00 10/07/19 11:36 Cosopt 2-0.5% Ophth Soln R EYE Not Given BID [facility] Enalaprilat 1.25 mg 10/05/19 14:00 10/07/19 09:05 Vasotec SLOW IVP 1.25 mg Q6H [facility] Administration Enoxaparin Sodium 60 mg 10/07/19 09:00 10/07/19 09:05 Lovenox SC 60 mg 0900,2100 [facility] Administration Famotidine 20 mg 10/04/19 21:00 10/07/19 08:59 Pepcid SLOW IVP 20 mg Q12HR [facility] Administration Hydralazine HCl 10 mg 10/05/19 00:03 10/07/19 00:55 Apresoline SLOW IVP 10 mg Q4H PRN Administration SBP Greater Than 180 Hydralazine HCl 100 mg 10/06/19 21:00 10/07/19 08:58 Apresoline PO 100 mg TID [facility] Administration Sodium Chloride 1,000 mls @ 50 mls/hr 10/04/19 12:00 10/07/19 03:20 Normal Saline 0.9% IV 1,000 mls .Q20H [facility] Administration Levetiracetam 500 mg/ Device 100 mls @ 200 mls/hr 10/04/19 21:00 10/07/19 08: 57 IVPB 100 mls BID [facility] Administration Ceftriaxone Sodium 2 gm/ 100 mls @ 200 mls/hr 10/04/19 17:00 10/06/19 16:39 Sodium Chloride IVPB 100 mls Q24HR [facility] Administration Diltiazem HCl 125 mg/ Sodium 125 mls @ 5 mls/hr 10/07/19 11:00 10/07/19 11:55 Chloride IVPB 125 mls INF [facility] Administration Protocol 5 MG/HR Isosorbide Mononitrate 60 mg 10/05/19 09:00 10/07/19 08:59 Imdur PO 60 mg DAILY [facility] Administration Latanoprost 1 drop 10/04/19 21:00 10/06/19 20:50 Xalatan 0.005% Ophth Soln R EYE 1 drop HS [facility] Administration Losartan Potassium 50 mg 10/07/19 09:00 10/07/19 08:59 Cozaar PO 50 mg DAILY [facility] Administration Nitroglycerin 2 inch 10/04/19 21:00 10/07/19 09:04 Nitro-Bid 2% Ointment TOP 2 inch TID [facility] Administration Ropinirole HCl 0.25 mg 10/04/19 15:00 10/07/19 08:58 Requip PO 0.25 mg TID [facility] Administration Sodium Chloride 10 ml 10/07/19 09:00 10/07/19 10:02 Flush - Normal Saline IVF Not Given Q12HR [facility] - Exam General Appearance: NAD Eye: PERRL, anicteric sclera ENT: normocephalic atraumatic, no oropharyngeal lesions Neck: supple, symmetric Heart: irregular Respiratory: CTAB, no wheezes, no rales, no ronchi Gastrointestinal: soft, non-tender, non-distended Extremities: no cyanosis, no clubbing, no edema Neurological: cranial nerve grossly intact, vision deficit Psychiatric: not oriented Psychiatric - other findings: Confused Hosp A/P (1) Atrial flutter Code(s): I48.92 - UNSPECIFIED ATRIAL FLUTTER Status: Acute (2) Sepsis Code(s): A41.9 - SEPSIS, UNSPECIFIED ORGANISM Status: Acute Qualifiers: Sepsis type: sepsis due to unspecified organism Sepsis acute organ dysfunction status: with acute organ dysfunction Severe sepsis acute organ dysfunction type: encephalopathy Severe sepsis shock status: without septic shock Qualified Code(s): A41.9 - Sepsis, unspecified organism; R65.20 - Severe sepsis without septic shock; G93.40 - Encephalopathy, unspecified (3) CAD (coronary artery disease), [place] coronary artery Code(s): I25.10 - ATHSCL HEART DISEASE OF [place] CORONARY ARTERY W/O ANG PCTRS Status: Acute Qualifiers: [place] vs. transplanted heart: [place] heart Associated angina: angina presence unspecified Qualified Code(s): I25.10 - Atherosclerotic heart disease of [place] coronary artery without angina pectoris (4) Encephalopathy Code(s): G93.40 - ENCEPHALOPATHY, UNSPECIFIED Status: Acute (5) UTI (urinary tract infection) Status: Acute Qualifiers: Urinary tract infection type: acute cystitis Hematuria presence: without hematuria Qualified Code(s): N30.00 - Acute cystitis without hematuria (6) HLD (hyperlipidemia) Code(s): E78.5 - HYPERLIPIDEMIA, UNSPECIFIED Status: Chronic Qualifiers: Hyperlipidemia type: unspecified Qualified Code(s): E78.5 - Hyperlipidemia , unspecified (7) HTN (hypertension) Code(s): I10 - ESSENTIAL (PRIMARY) HYPERTENSION Status: Chronic Qualifiers: - Plan old records reviewed/req, continue antibiotics Admitted for UTI sepsis, Metabolic Encephalopathy, confusion, new onset A flutter. COVID Negative Continue treatment with Ceftrioxne, urine cx positive for Ecoli, Discontinued Dobutamine, patient now on Coreg Continue other anti hypertensives from home: Hydralazine, Indur, lasix History of CVA and dementia: Continue home meds
--- NOTE | 2019-10-07 12:46 | PDOC.EP ---
- Subjective Date: 10/07/19 Time: 12:44 Interval History: follow up for atrial flutter and arrhythmia management. COVID 19 has been determined negative thus far. Ms. Wagner is awake but does not verbally engage. She voices no complaints - Review of Systems ROS unobtainable: due to mental status - Objective Allergies/Adverse Reactions: Allergies Allergy/AdvReac Type Severity Reaction Status Date / Time No Known Allergies Allergy Verified 09/06/19 12:18 Current Medications Acetaminophen (Tylenol) 650 mg PO Q4H PRN PRN Reason: Headache/Fever/Mild Pain (1-3) Acetaminophen (Tylenol) 650 mg SD Q4H PRN PRN Reason: Headache/Fever/Mild Pain (1-3) Albuterol Sulfate (Proventil Hfa) 2 puff INH Q2H PRN PRN Reason: HR <30 Artificial Tears (Liquitears 15ml Bottle) 0 drop EA EYE BIDPRN PRN PRN Reason: Dry Eyes Aspirin (Ecotrin) 81 mg PO DAILY [facility] Last Admin: 10/07/19 08:58 Dose: 81 mg Atropine Sulfate (Atropine) 1 mg IVP Q6H PRN PRN Reason: for heart rate <40/min Brimonidine Tartrate (Alphagan 0.2% Ophth Soln) 1 drop R EYE 0800,1600,2359 [facility] Last Admin: 10/07/19 11:36 Dose: Not Given Carbidopa/Levodopa (Sinemet Cr 50/200) 2 tab PO DAILY [facility] Last Admin: 10/07/19 08:58 Dose: 2 tab Carvedilol (Coreg) 3.125 mg PO BID-[facility] Dextrose/Water (Dextrose 50%) 25 gm SLOW IVP PRN PRN PRN Reason: Hypoglycemia Dorzolamide/Timolol (Cosopt 2-0.5% Ophth Soln) 1 drop R EYE BID [facility] Last Admin: 10/07/19 11:36 Dose: Not Given Enalaprilat (Vasotec) 1.25 mg SLOW IVP Q6H [facility] Last Admin: 10/07/19 09:05 Dose: 1.25 mg Enoxaparin Sodium (Lovenox) 60 mg SC 0900,2100 [facility] Last Admin: 10/07/19 09:05 Dose: 60 mg Famotidine (Pepcid) 20 mg SLOW IVP Q12HR [facility] Last Admin: 10/07/19 08:59 Dose: 20 mg Glucagon (Glucagon) 1 mg IM PRN PRN PRN Reason: Hypoglycemia Hydralazine HCl (Apresoline) 10 mg SLOW IVP Q4H PRN PRN Reason: SBP Greater Than 180 Last Admin: 10/07/19 00:55 Dose: 10 mg Hydralazine HCl (Apresoline) 100 mg PO TID [facility] Last Admin: 10/07/19 08:58 Dose: 100 mg Dextrose/Water (D5w) 1,000 mls @ 0 mls/hr IV .Q0M PRN PRN Reason: Hypoglycemia Sodium Chloride (Normal Saline 0.9%) 1,000 mls @ 50 mls/hr IV .Q20H [facility] Last Admin: 10/07/19 03:20 Dose: 1,000 mls Levetiracetam 500 mg/ Device 100 mls @ 200 mls/hr IVPB BID [facility] Last Admin: 10/07/19 08:57 Dose: 100 mls Ceftriaxone Sodium 2 gm/ (Sodium Chloride) 100 mls @ 200 mls/hr IVPB Q24HR [facility] Last Admin: 10/06/19 16:39 Dose: 100 mls Diltiazem HCl 125 mg/ Sodium (Chloride) 125 mls @ 5 mls/hr IVPB INF [facility]; Protocol Last Admin: 10/07/19 11:55 Dose: 125 mls Insulin Human Lispro (Humalog) 0 units SC .MODERATE SLIDING SC PRN PRN Reason: Moderate Correctional Scale Isosorbide Mononitrate (Imdur) 60 mg PO DAILY [facility] Last Admin: 10/07/19 08:59 Dose: 60 mg Latanoprost (Xalatan 0.005% [facility] Soln) 1 drop R EYE HS [facility] Last Admin: 10/06/19 20:50 Dose: 1 drop Losartan Potassium (Cozaar) 50 mg PO DAILY [facility] Last Admin: 10/07/19 08:59 Dose: 50 mg Nitroglycerin (Nitro-Bid 2% Ointment) 2 inch TOP TID [facility] Last Admin: 10/07/19 09:04 Dose: 2 inch Ondansetron HCl (Zofran) 4 mg IVP Q6H PRN PRN Reason: Nausea/Vomiting Ropinirole HCl (Requip) 0.25 mg PO TID [facility] Last Admin: 10/07/19 08:58 Dose: 0.25 mg Sodium Chloride (Flush - Normal Saline) 10 ml IVF Q12HR [facility] Last Admin: 10/07/19 10:02 Dose: Not Given Sodium Chloride (Flush - Normal Saline) 10 ml IVF PRN PRN PRN Reason: Saline Flush Vital Signs & Weight: Vital Signs Temp Pulse Resp BP BP Pulse Ox 10/07/19 11:49 98.8 F 116 H 20 152/79 H 97 10/07/19 09:11 97.2 F L 112 H 18 208/88 H 99 10/07/19 03:18 97.7 F 87 20 185/81 H 97 10/07/19 00:55 65 211/90 H Admit Weight 133 lb Weight 134 lb 11.2 oz I/O: I/O 10/06/19 10/07/19 10/08/19 06:59 06:59 06:59 Intake Total 1575 2457 Output Total 2600 1250 Balance -1025 1207 - Quality Measures Condition: Atrial Fibrillation/Flutter (hx or current) (lovenox) - Physical Exam General: no apparent distress, other (non verbal. Her eyes were open and she her gaze would occasionally follow me around the room) HEENT: mucus membranes moist. negative: jaundice, oral lesions Neck: supple neck, no JVD/HJR Cardiology: no murmur, irregularly irregular, tachycardia Lungs: no wheezes, no rales, no rhonchi, decreased breath sounds Abdomen: soft, no masses, HJR negative - Chadsvasc Risk factors Hypertension: 1 Age >75: 2 Diabetes mellitus: 1 Stroke/TIA/thrombo-embolism: 2 Female: 1 Risk Score: 7 - Labs Result Diagrams: 10/05/19 12:22 10/07/19 05:21 - EKG Interpretation EKG Method: Telemetry EKG shows: Typical atrial flutter - Assessment/Plan Assessment/Plan: 1. Newly found atrial flutter -initially with slow ventricular response now RVR requiring diltiazem gtt for support. 2. History of coronary artery disease with prior coronary artery bypass grafting surgery. a. History of preserved LVEF at 55% to 60%, mild MR, TR, possible patent foramen ovale, [id number] shunt, diastolic dysfunction on echo January 14, 2014. 3. Fever, lethargy, on COVID-19 rule out protocol. 4. 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 5. History of dementia. 6. History of type 2 diabetes. 7. Hypertension. 8. Chronic depression. 9. Diverticulosis history. 10. Chronic anemia Agree with additional rate control as she is now tachcardia. If rates stabilize on diltiazem gtt I would transition to PO dosing. Overall she is in poor condition. She does not appear to be in any distress despite the slight RVR. I recommend conservative medical treatment for now. LUCIEN guided DCCV by cardiology could be considered if rate control proves difficult to achieve. Pt. seen and eval. by me. I agree with the A/P by the [employer]. She has a UTI and this with the fever may be the cause of the atrial flutter.Appreciate dr. Burr' s assistance. Hopefully she will not need a pacemaker. Will definitely need to discuss with the family. Chest clear. Slightly irregular rhythm at this time, rate controlled.
--- NOTE | 2019-10-07 14:51 | ULT ---
BILATERAL LOWER EXTREMITY VENOUS DOPPLER ULTRASOUND: Date: 10/07/2019 HISTORY: Bilateral lower extremity edema and pain. TECHNIQUE: Pederson scale ultrasound with color flow and spectral Doppler imaging of the deep venous systems of the lower extremities was performed bilaterally. FINDINGS: Exam limited. The patient is unable to correctly position legs. The right mid and distal posterior tibial vein, left popliteal, and mid and distal left posterior tib ial veins are not visualized. The remainder of the deep venous systems of the lower extremities are otherwise patent with good flow , compression, and augmentation. IMPRESSION: Limited exam. No evidence of deep venous thrombosis seen in the visualized veins on either side. POS: HALEY
[2019-10-07] MEDS: cefTRIAXone\\ROCEPHIN 2 GM in Sodium Chloride 0.9% 100 ML IVPB SCH (18:39)
[2019-10-07] MEDS: Carvedilol 3.125 MG TAB PO SCH (18:39)
[2019-10-07] MEDS: Latanoprost 0.005% Ophth Soln 2.5 ml Bottle R EYE SCH (20:39)
[2019-10-07 22:03] LABS: Hemoglobin 10.7 g/dL (12.0-16.0); Platelet Count 155 thou/uL (130-400)
[2019-10-08] MEDS: Sodium Chloride 0.9% 1,000 ML IV SCH (02:03)
[2019-10-08] MEDS: Enalaprilat Dihydrate 1.25 MG/ML VIAL SLOW IVP SCH ×3 (02:07→13:06)
[2019-10-08] MEDS: Brimonidine Tartrate 0.2% Ophth Soln 5 ml Bottle R EYE SCH ×4 (02:10→21:23)
[2019-10-08] MEDS: Nitroglycerin 2% Ointment 1 INCH/1 GM Packet TOP SCH ×3 (08:27→21:17)
[2019-10-08] MEDS: Enoxaparin Sodium 60 MG/0.6 ML SYRINGE SC SCH ×2 (08:28→21:16)
[2019-10-08] MEDS: Famotidine/PF 20 mg/2ml Vial SLOW IVP SCH (08:28)
[2019-10-08] MEDS: DorzolamidE/Timolol 2%/0.5% Ophth Soln 10 ml Bottle R EYE SCH ×2 (10:00→21:23)
[2019-10-08] MEDS: hydrALAZINE 20 MG/ML VIAL SLOW IVP PRN (10:00)
[2019-10-08] MEDS: Carbidopa/Levodopa CR 50-200 mg Tablet PO SCH (10:14)
[2019-10-08] MEDS: Aspirin 81 mg Enteric Coated Tablet PO SCH (10:14)
[2019-10-08] MEDS: hydrALAZINE 25 MG TAB PO SCH ×3 (10:14→21:17)
[2019-10-08] MEDS: Carvedilol 3.125 MG TAB PO SCH ×2 (10:14→18:20)
[2019-10-08] MEDS: Losartan 25 MG TAB PO SCH (10:15)
[2019-10-08] MEDS: rOPINIRole HCl 0.25 MG TAB PO SCH ×2 (10:15→15:42)
--- NOTE | 2019-10-08 11:49 | PDOC.CPN ---
- Subjective Date: 10/08/19 Time: 08:00 Interval history: The pt seen and examined. Diltiazem drip has been on hold since 0730 for HR went down to 30s. - Objective Allergies/Adverse Reactions: Allergies Allergy/AdvReac Type Severity Reaction Status Date / Time No Known Allergies Allergy Verified 09/06/19 12:18 Visit Medications: Current Medications Acetaminophen (Tylenol) 650 mg PO Q4H PRN PRN Reason: Headache/Fever/Mild Pain (1-3) Acetaminophen (Tylenol) 650 mg [place] Q4H PRN PRN Reason: Headache/Fever/Mild Pain (1-3) Albuterol Sulfate (Proventil Hfa) 2 puff INH Q2H PRN PRN Reason: HR <30 Artificial Tears (Liquitears 15ml Bottle) 0 drop EA EYE BIDPRN PRN PRN Reason: Dry Eyes Aspirin (Ecotrin) 81 mg PO DAILY [facility] Last Admin: 10/08/19 10:14 Dose: Not Given Atropine Sulfate (Atropine) 1 mg IVP Q6H PRN PRN Reason: for heart rate <40/min Brimonidine Tartrate (Alphagan 0.2% Ophth Soln) 1 drop R EYE 0800,1600,2359 [facility] Last Admin: 10/08/19 08:28 Dose: 1 drop Carbidopa/Levodopa (Sinemet Cr 50/200) 2 tab PO DAILY [facility] Last Admin: 10/08/19 10:14 Dose: Not Given Carvedilol (Coreg) 3.125 mg PO BID-[facility] Last Admin: 10/08/19 10:14 Dose: Not Given Dextrose/Water (Dextrose 50%) 25 gm SLOW IVP PRN PRN PRN Reason: Hypoglycemia Dorzolamide/Timolol (Cosopt 2-0.5% Ophth Soln) 1 drop R EYE BID [facility] Last Admin: 10/08/19 10:00 Dose: 1 drop Enalaprilat (Vasotec) 1.25 mg SLOW IVP Q6H [facility] Last Admin: 10/08/19 10:00 Dose: 1.25 mg Enoxaparin Sodium (Lovenox) 60 mg SC 0900,2100 [facility] Last Admin: 10/08/19 08:28 Dose: 60 mg Famotidine (Pepcid) 20 mg SLOW IVP Q12HR [facility] Last Admin: 10/08/19 08:28 Dose: 20 mg Glucagon (Glucagon) 1 mg IM PRN PRN PRN Reason: Hypoglycemia Hydralazine HCl (Apresoline) 10 mg SLOW IVP Q4H PRN PRN Reason: SBP Greater Than 180 Last Admin: 10/08/19 10:00 Dose: 10 mg Hydralazine HCl (Apresoline) 100 mg PO TID [facility] Last Admin: 10/08/19 10:14 Dose: Not Given Dextrose/Water (D5w) 1,000 mls @ 0 mls/hr IV .Q0M PRN PRN Reason: Hypoglycemia Sodium Chloride (Normal Saline 0.9%) 1,000 mls @ 50 mls/hr IV .Q20H [facility] Last Admin: 10/08/19 02:03 Dose: 1,000 mls Levetiracetam 500 mg/ Device 100 mls @ 200 mls/hr IVPB BID [facility] Last Admin: 10/08/19 08:27 Dose: 100 mls Ceftriaxone Sodium 2 gm/ (Sodium Chloride) 100 mls @ 200 mls/hr IVPB Q24HR [facility] Last Admin: 10/07/19 18:39 Dose: 100 mls Diltiazem HCl 125 mg/ Sodium (Chloride) 125 mls @ 5 mls/hr IVPB INF [facility]; Protocol Last Admin: 10/07/19 11:55 Dose: 125 mls Insulin Human Lispro (Humalog) 0 units SC .MODERATE SLIDING SC PRN PRN Reason: Moderate Correctional Scale Isosorbide Mononitrate (Imdur) 60 mg PO DAILY [facility] Last Admin: 10/08/19 10:15 Dose: Not Given Latanoprost (Xalatan 0.005% Oph Soln) 1 drop R EYE HS [facility] Last Admin: 10/07/19 20:39 Dose: 1 drop Losartan Potassium (Cozaar) 100 mg PO DAILY [facility] Losartan Potassium (Cozaar) 50 mg PO ONE [facility] Nitroglycerin (Nitro-Bid 2% Ointment) 2 inch TOP TID [facility] Last Admin: 10/08/19 08:27 Dose: 2 inch Ondansetron HCl (Zofran) 4 mg IVP Q6H PRN PRN Reason: Nausea/Vomiting Ropinirole HCl (Requip) 0.25 mg PO TID [facility] Last Admin: 10/08/19 10:15 Dose: Not Given Sodium Chloride (Flush - Normal Saline) 10 ml IVF Q12HR [facility] Last Admin: 10/08/19 08:29 Dose: 10 ml Sodium Chloride (Flush - Normal Saline) 10 ml IVF PRN PRN PRN Reason: Saline Flush Vital Signs & Weight: Vital Signs Temp Pulse Resp BP BP Pulse Ox 10/08/19 11:00 167/68 H 10/08/19 07:22 98.9 F 69 19 186/84 H 95 10/08/19 04:04 98.6 F 68 16 182/79 H 96 10/08/19 02:07 175/75 H 10/08/19 00:08 97 Admit Weight 133 lb Weight 134 lb 11.2 oz - Physical Exam General: alert & oriented x3 HEENT: mucus membranes moist Neck: supple neck Cardiac: irregularly regular Lungs: decreased breath sounds - Labs Result Diagrams: 10/07/19 21:56 10/07/19 21:56 Troponin/CKMB CK-MB (CK-2) 0.8 ng/mL (0-6.6) 10/04/19 09:55 Troponin I 0.069 ng/mL (< 0.028) H 10/04/19 16:40 - Telemetry Supraventricular conduction: atrial flutter - Assessment/Plan Assessment/Plan: 1. New onset Atrial flutter - Diltiazem drip is on hold for now due to bradycardia; On coreg 3.125mg BID and Lovenox 60mg BID 2. HTN - will increase Losartan from 50mg to 100mg qd; add Norvasc. May need to increase nitrates also. 3. Urosepsis - on IV ABX 4. CAD with hx of CABG - 5. DM type 2 6. Hx of CVA 7. Seizure 9. Hx of dementia MAR reviewed * Echo in 02/2019 (at Dr Sanchez' office) with EF 50-55%, mildly akinetic inferior wall, mild LAE, mild AR, MR, TR Pt. seen and eval. by me.I agree with the A/P by the [employer]PER[employer].Appreciate EP assistance. Little change overall.Pt. is minimally responsive post prior CVA's. Irreg/irreg., poor inspiratory effort.No edema. gjm
[2019-10-08 14:37] VITALS: BMI 21.7
[2019-10-08] MEDS ORDERED: Losartan 25 MG TAB PO SCH (15:00)
--- NOTE | 2019-10-08 15:23 | PDOC.HOSPP ---
- Subjective Encounter Date: 10/08/19 Encounter Time: 15:21 non-verbal - Objective Vital Signs & Weight: Vital Signs (12 hours) Temp Pulse Resp BP Pulse Ox 10/08/19 12:08 99.5 F 63 20 185/68 H 96 10/08/19 11:00 167/68 H 10/08/19 07:22 98.9 F 69 19 186/84 H 95 10/08/19 04:04 98.6 F 68 16 182/79 H 96 Weight Admit Weight 133 lb Weight 134 lb 11.2 oz I&O: 10/07/19 10/08/19 10/09/19 06:59 06:59 06:59 Intake Total 2457 700 Output Total 1250 325 Balance 1207 375 Result Diagrams: 10/07/19 21:56 10/07/19 21:56 Additional Labs: Accuchecks 10/08/19 06:06 POC Glucose 158 H Hospitalist ROS - Review of Systems ROS unobtainable: due to mental status - Medication Medications: Active Medications Generic Name Dose Route Start Last Admin Trade Name Connor PRN Reason Stop Dose Admin Aspirin 81 mg 10/05/19 09:00 10/08/19 10:14 Ecotrin PO Not Given DAILY [facility] Brimonidine Tartrate 1 drop 10/05/19 08:00 10/08/19 08:28 Alphagan 0.2% Ophth Soln R EYE 1 drop 0800,1600,2359 LANDRY Administration Carbidopa/Levodopa 2 tab 10/05/19 09:00 10/08/19 10:14 Sinemet Cr 50/200 PO Not Given DAILY [facility] Carvedilol 3.125 mg 10/07/19 17:00 10/08/19 10:14 Coreg PO Not Given BID-[facility] Dorzolamide/Timolol 1 drop 10/04/19 21:00 10/08/19 10:00 Cosopt 2-0.5% Ophth Soln R EYE 1 drop BID LANDRY Administration Enalaprilat 1.25 mg 10/05/19 14:00 10/08/19 13:06 Vasotec SLOW IVP 1.25 mg Q6H LANDRY Administration Enoxaparin Sodium 60 mg 10/07/19 09:00 10/08/19 08:28 Lovenox SC 60 mg 0900,2100 LANDRY Administration Famotidine 20 mg 10/04/19 21:00 10/08/19 08:28 Pepcid SLOW IVP 20 mg Q12HR LANDRY Administration Hydralazine HCl 10 mg 10/05/19 00:03 10/08/19 10:00 Apresoline SLOW IVP 10 mg Q4H PRN Administration SBP Greater Than 180 Hydralazine HCl 100 mg 10/06/19 21:00 10/08/19 10:14 Apresoline PO Not Given TID LANDRY Sodium Chloride 1,000 mls @ 50 mls/hr 10/04/19 12:00 10/08/19 02:03 Normal Saline 0.9% IV 1,000 mls .Q20H LANDRY Administration Levetiracetam 500 mg/ Device 100 mls @ 200 mls/hr 10/04/19 21:00 10/08/19 08: 27 IVPB 100 mls BID LANDRY Administration Ceftriaxone Sodium 2 gm/ 100 mls @ 200 mls/hr 10/04/19 17:00 10/07/19 18:39 Sodium Chloride IVPB 100 mls Q24HR LANDRY Administration Diltiazem HCl 125 mg/ Sodium 125 mls @ 5 mls/hr 10/07/19 11:00 10/07/19 11:55 Chloride IVPB 125 mls INF LANDRY Administration Protocol 5 MG/HR Isosorbide Mononitrate 60 mg 10/05/19 09:00 10/08/19 10:15 Imdur PO Not Given DAILY LANDR[facility] Latanoprost 1 drop 10/04/19 21:00 10/07/19 20:39 Xalatan 0.005% Ophth Soln R EYE 1 drop HS LANDRY Administration Nitroglycerin 2 inch 10/04/19 21:00 10/08/19 08:27 Nitro-Bid 2% Ointment TOP 2 inch TID LANDRY Administration Ropinirole HCl 0.25 mg 10/04/19 15:00 10/08/19 10:15 Requip PO Not Given TID LANDRY Sodium Chloride 10 ml 10/07/19 09:00 10/08/19 08:29 Flush - Normal Saline IVF 10 ml Q12HR LANDRY Administration - Exam General Appearance: NAD Eye: PERRL, anicteric sclera ENT: normocephalic atraumatic, no oropharyngeal lesions Neck: supple, symmetric Heart: RRR, no murmur Respiratory: CTAB, no wheezes, no rales Gastrointestinal: soft, non-tender, non-distended Extremities: no cyanosis, no clubbing Skin: normal turgor, no lesions Neurological - other findings: do not follow commands Psychiatric: not oriented, flat affect Hosp A/P (1) Atrial flutter Code(s): I48.92 - UNSPECIFIED ATRIAL FLUTTER Status: Acute (2) Sepsis Code(s): A41.9 - SEPSIS, UNSPECIFIED ORGANISM Status: Acute Qualifiers: Sepsis type: sepsis due to unspecified organism Sepsis acute organ dysfunction status: with acute organ dysfunction Severe sepsis acute organ dysfunction type: encephalopathy Severe sepsis shock status: without septic shock Qualified Code(s): A41.9 - Sepsis, unspecified organism; R65.20 - Severe sepsis without septic shock; G93.40 - Encephalopathy, unspecified (3) CAD (coronary artery disease), [place] coronary artery Code(s): I25.10 - ATHSCL HEART DISEASE OF [place] CORONARY ARTERY W/O ANG PCTRS Status: Acute Qualifiers: [place] vs. transplanted heart: [place] heart Associated angina: angina presence unspecified Qualified Code(s): I25.10 - Atherosclerotic heart disease of [place] coronary artery without angina pectoris (4) Encephalopathy Code(s): G93.40 - ENCEPHALOPATHY, UNSPECIFIED Status: Acute (5) UTI (urinary tract infection) Status: Acute Qualifiers: Urinary tract infection type: acute cystitis Hematuria presence: without hematuria Qualified Code(s): N30.00 - Acute cystitis without hematuria (6) HLD (hyperlipidemia) Code(s): E78.5 - HYPERLIPIDEMIA, UNSPECIFIED Status: Chronic Qualifiers: Hyperlipidemia type: unspecified Qualified Code(s): E78.5 - Hyperlipidemia , unspecified (7) HTN (hypertension) Code(s): I10 - ESSENTIAL (PRIMARY) HYPERTENSION Status: Chronic Qualifiers: - Plan Admitted for UTI sepsis, Metabolic Encephalopathy, confusion, new onset A flutter. COVID Negative Continue treatment with Ceftrioxne, urine cx positive for Ecoli, Discontinued Dobutamine, patient now on Coreg Continue other anti hypertensives from home: Hydralazine, Indur, lasix History of CVA and dementia: Continue home meds Palliative care consulted: Hospice? PEG? Patient refusing to eat anything
--- NOTE | 2019-10-08 16:51 | PDOC.EP ---
- Subjective Date: 10/08/19 Time: 08:00 Interval History: follow up for atrial flutter and arrhythmia management. COVID 19 has been determined negative thus far. Ms. Wagner is awake but does not verbally engage. She voices no complaints - Review of Systems ROS unobtainable: due to mental status - Objective Allergies/Adverse Reactions: Allergies Allergy/AdvReac Type Severity Reaction Status Date / Time No Known Allergies Allergy Verified 09/06/19 12:18 Current Medications Acetaminophen (Tylenol) 650 mg PO Q4H PRN PRN Reason: Headache/Fever/Mild Pain (1-3) Acetaminophen (Tylenol) 650 mg [place] Q4H PRN PRN Reason: Headache/Fever/Mild Pain (1-3) Albuterol Sulfate (Proventil Hfa) 2 puff INH Q2H PRN PRN Reason: HR <30 Amlodipine Besylate (Norvasc) 5 mg PO DAILY [facility] Artificial Tears (Liquitears 15ml Bottle) 0 drop EA EYE BIDPRN PRN PRN Reason: Dry Eyes Aspirin (Ecotrin) 81 mg PO DAILY [facility] Last Admin: 10/08/19 10:14 Dose: Not Given Atropine Sulfate (Atropine) 1 mg IVP Q6H PRN PRN Reason: for heart rate <40/min Brimonidine Tartrate (Alphagan 0.2% Ophth Soln) 1 drop R EYE 0800,1600,2359 [facility] Last Admin: 10/08/19 16:48 Dose: 1 drop Carbidopa/Levodopa (Sinemet Cr 50/200) 2 tab PO DAILY [facility] Last Admin: 10/08/19 10:14 Dose: Not Given Carvedilol (Coreg) 3.125 mg PO BID-[facility] Last Admin: 10/08/19 10:14 Dose: Not Given Dextrose/Water (Dextrose 50%) 25 gm SLOW IVP PRN PRN PRN Reason: Hypoglycemia Dorzolamide/Timolol (Cosopt 2-0.5% Ophth Soln) 1 drop R EYE BID [facility] Last Admin: 10/08/19 10:00 Dose: 1 drop Enalaprilat (Vasotec) 1.25 mg SLOW IVP Q6H [facility] Last Admin: 10/08/19 13:06 Dose: 1.25 mg Enoxaparin Sodium (Lovenox) 60 mg SC 0900,2100 [facility] Last Admin: 10/08/19 08:28 Dose: 60 mg Famotidine (Pepcid) 20 mg SLOW IVP Q12HR [facility] Last Admin: 10/08/19 08:28 Dose: 20 mg Glucagon (Glucagon) 1 mg IM PRN PRN PRN Reason: Hypoglycemia Hydralazine HCl (Apresoline) 10 mg SLOW IVP Q4H PRN PRN Reason: SBP Greater Than 180 Last Admin: 10/08/19 10:00 Dose: 10 mg Hydralazine HCl (Apresoline) 100 mg PO TID [facility] Last Admin: 10/08/19 15:42 Dose: 100 mg Dextrose/Water (D5w) 1,000 mls @ 0 mls/hr IV .Q0M PRN PRN Reason: Hypoglycemia Sodium Chloride (Normal Saline 0.9%) 1,000 mls @ 50 mls/hr IV .Q20H [facility] Last Admin: 10/08/19 02:03 Dose: 1,000 mls Levetiracetam 500 mg/ Device 100 mls @ 200 mls/hr IVPB BID [facility] Last Admin: 10/08/19 08:27 Dose: 100 mls Ceftriaxone Sodium 2 gm/ (Sodium Chloride) 100 mls @ 200 mls/hr IVPB Q24HR [facility] Last Admin: 10/07/19 18:39 Dose: 100 mls Diltiazem HCl 125 mg/ Sodium (Chloride) 125 mls @ 5 mls/hr IVPB INF [facility]; Protocol Last Admin: 10/07/19 11:55 Dose: 125 mls Insulin Human Lispro (Humalog) 0 units SC .MODERATE SLIDING SC PRN PRN Reason: Moderate Correctional Scale Isosorbide Mononitrate (Imdur) 60 mg PO DAILY [facility] Last Admin: 10/08/19 10:15 Dose: Not Given Latanoprost (Xalatan 0.005% Oph Soln) 1 drop R EYE HS [facility] Last Admin: 10/07/19 20:39 Dose: 1 drop Losartan Potassium (Cozaar) 100 mg PO DAILY [facility] Losartan Potassium (Cozaar) 50 mg PO 1500 [facility] Stop: 10/08/19 17:00 Last Admin: 10/08/19 15:42 Dose: 50 mg Nitroglycerin (Nitro-Bid 2% Ointment) 2 inch TOP TID [facility] Last Admin: 10/08/19 16:43 Dose: 2 inch Ondansetron HCl (Zofran) 4 mg IVP Q6H PRN PRN Reason: Nausea/Vomiting Ropinirole HCl (Requip) 0.25 mg PO TID [facility] Last Admin: 10/08/19 15:42 Dose: 0.25 mg Sodium Chloride (Flush - Normal Saline) 10 ml IVF Q12HR [facility] Last Admin: 10/08/19 08:29 Dose: 10 ml Sodium Chloride (Flush - Normal Saline) 10 ml IVF PRN PRN PRN Reason: Saline Flush Vital Signs & Weight: Vital Signs Temp Pulse Resp BP Pulse Ox 10/08/19 16:10 99 F 90 22 H 146/55 H 96 10/08/19 12:08 99.5 F 63 20 185/68 H 96 10/08/19 11:00 167/68 H 10/08/19 07:22 98.9 F 69 19 186/84 H 95 Admit Weight 133 lb Weight 134 lb 11.2 oz I/O: I/O 10/07/19 10/08/19 10/09/19 06:59 06:59 06:59 Intake Total 2457 700 Output Total 1250 325 Balance 1207 375 - Quality Measures Condition: Atrial Fibrillation/Flutter (hx or current) (lovenox) - Physical Exam General: no apparent distress. negative: alert & oriented x3, appears well, speech clear HEENT: mucus membranes moist Neck: midline trachea, no JVD/HJR, no thromegaly Cardiology: regular rate, irregularly irregular Lungs: no wheeze, rales, rhonchi, decreased breath sounds Extremities: dry, strong pulses, warm - Labs Result Diagrams: 10/07/19 21:56 10/07/19 21:56 - EKG Interpretation EKG Method: Telemetry EKG shows: Typical atrial flutter - Assessment/Plan Assessment/Plan: 1. Newly found atrial flutter -initially with slow ventricular response now RVR requiring diltiazem gtt for support. 2. History of coronary artery disease with prior coronary artery bypass grafting surgery. a. History of preserved LVEF at 55% to 60%, mild MR, TR, possible patent foramen ovale, xipd-mg-ulfke shunt, diastolic dysfunction on echo January 14, 2014. 3. Fever, lethargy, on COVID-19 rule out protocol. 4. 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 5. History of dementia. 6. History of type 2 diabetes. 7. Hypertension. 8. Chronic depression. 9. Diverticulosis history. 10. Chronic anemia 11. Deconditioning/failure to thrive Off diltiazem as this AM her HR dropped into the 30s. HR now stable in the 60- 70 bpm range. Overall she is in poor condition and would benefit from palliative care evaluation, possible hospice. I recommend conservative medical treatment for now. LUCIEN guided DCCV by cardiology could be considered if rate control cannot be achieved.
[2019-10-08] MEDS: cefTRIAXone\\ROCEPHIN 2 GM in Sodium Chloride 0.9% 100 ML IVPB SCH (18:20)
[2019-10-09] MEDS: Sodium Chloride 0.9% 1,000 ML IV SCH ×2 (00:55→15:25)
[2019-10-09] MEDS: Enalaprilat Dihydrate 1.25 MG/ML VIAL SLOW IVP SCH ×5 (01:04→20:41)
[2019-10-09] MEDS: Famotidine/PF 20 mg/2ml Vial SLOW IVP SCH ×3 (01:04→20:42)
[2019-10-09] MEDS: Latanoprost 0.005% Ophth Soln 2.5 ml Bottle R EYE SCH ×2 (01:04→20:44)
[2019-10-09] MEDS: rOPINIRole HCl 0.25 MG TAB PO SCH ×4 (01:05→20:57)
[2019-10-09] MEDS: hydrALAZINE 20 MG/ML VIAL SLOW IVP PRN ×2 (04:45→17:54)
--- NOTE | 2019-10-09 08:07 | PDOC.CPN ---
- Subjective Date: 10/09/19 Time: 08:09 Interval history: The pt seen and examined. No overnight events. The pt's HR has been elevated to 110s from this AM - Objective Allergies/Adverse Reactions: Allergies Allergy/AdvReac Type Severity Reaction Status Date / Time No Known Allergies Allergy Verified 09/06/19 12:18 Visit Medications: Current Medications Acetaminophen (Tylenol) 650 mg PO Q4H PRN PRN Reason: Headache/Fever/Mild Pain (1-3) Acetaminophen (Tylenol) 650 mg [place] Q4H PRN PRN Reason: Headache/Fever/Mild Pain (1-3) Albuterol Sulfate (Proventil Hfa) 2 puff INH Q2H PRN PRN Reason: HR <30 Amlodipine Besylate (Norvasc) 5 mg PO DAILY [facility] Artificial Tears (Liquitears 15ml Bottle) 0 drop EA EYE BIDPRN PRN PRN Reason: Dry Eyes Aspirin (Ecotrin) 81 mg PO DAILY [facility] Last Admin: 10/08/19 10:14 Dose: Not Given Atropine Sulfate (Atropine) 1 mg IVP Q6H PRN PRN Reason: for heart rate <40/min Brimonidine Tartrate (Alphagan 0.2% Ophth Soln) 1 drop R EYE 0800,1600,2359 [facility] Last Admin: 10/08/19 21:23 Dose: 1 drop Carbidopa/Levodopa (Sinemet Cr 50/200) 2 tab PO DAILY [facility] Last Admin: 10/08/19 10:14 Dose: Not Given Carvedilol (Coreg) 6.25 mg PO BID-[facility] Carvedilol (Coreg) 6.25 mg PO ONE [facility] Dextrose/Water (Dextrose 50%) 25 gm SLOW IVP PRN PRN PRN Reason: Hypoglycemia Dorzolamide/Timolol (Cosopt 2-0.5% Ophth Soln) 1 drop R EYE BID [facility] Last Admin: 10/08/19 21:23 Dose: 1 drop Enalaprilat (Vasotec) 1.25 mg SLOW IVP Q6H [facility] Last Admin: 10/09/19 01:05 Dose: 1.25 mg Enoxaparin Sodium (Lovenox) 60 mg SC 0900,2100 [facility] Last Admin: 10/08/19 21:16 Dose: 60 mg Famotidine (Pepcid) 20 mg SLOW IVP Q12HR [facility] Last Admin: 10/09/19 01:04 Dose: Not Given Glucagon (Glucagon) 1 mg IM PRN PRN PRN Reason: Hypoglycemia Hydralazine HCl (Apresoline) 100 mg PO TID [facility] Last Admin: 10/08/19 21:17 Dose: 100 mg Hydralazine HCl (Apresoline) 10 mg SLOW IVP Q4H PRN PRN Reason: SBP GREATER THAN 160 Dextrose/Water (D5w) 1,000 mls @ 0 mls/hr IV .Q0M PRN PRN Reason: Hypoglycemia Sodium Chloride (Normal Saline 0.9%) 1,000 mls @ 50 mls/hr IV .Q20H [facility] Last Admin: 10/09/19 00:55 Dose: 1,000 mls Levetiracetam 500 mg/ Device 100 mls @ 200 mls/hr IVPB BID [facility] Last Admin: 10/09/19 01:01 Dose: 100 mls Ceftriaxone Sodium 2 gm/ (Sodium Chloride) 100 mls @ 200 mls/hr IVPB Q24HR [facility] Last Admin: 10/08/19 18:20 Dose: 100 mls Diltiazem HCl 125 mg/ Sodium (Chloride) 125 mls @ 5 mls/hr IVPB INF [facility]; Protocol Last Admin: 10/07/19 11:55 Dose: 125 mls Insulin Human Lispro (Humalog) 0 units SC .MODERATE SLIDING SC PRN PRN Reason: Moderate Correctional Scale Isosorbide Mononitrate (Imdur) 60 mg PO DAILY [facility] Last Admin: 10/08/19 10:15 Dose: Not Given Latanoprost (Xalatan 0.005% Oph Soln) 1 drop R EYE HS [facility] Last Admin: 10/09/19 01:04 Dose: 1 drop Losartan Potassium (Cozaar) 100 mg PO DAILY [facility] Nitroglycerin (Nitro-Bid 2% Ointment) 2 inch TOP TID [facility] Last Admin: 10/08/19 21:17 Dose: 2 inch Ondansetron HCl (Zofran) 4 mg IVP Q6H PRN PRN Reason: Nausea/Vomiting Ropinirole HCl (Requip) 0.25 mg PO TID [facility] Last Admin: 10/09/19 01:05 Dose: Not Given Sodium Chloride (Flush - Normal Saline) 10 ml IVF Q12HR [facility] Last Admin: 10/08/19 21:17 Dose: 10 ml Sodium Chloride (Flush - Normal Saline) 10 ml IVF PRN PRN PRN Reason: Saline Flush Vital Signs & Weight: Vital Signs Temp Pulse Resp BP BP Pulse Ox 10/09/19 04:45 88 10/09/19 03:10 98.4 F 88 16 198/109 H 96 10/09/19 01:07 97 10/09/19 01:05 175/75 H 10/09/19 01:04 175/75 H 10/09/19 00:20 97.6 F 90 16 190/82 H 97 10/08/19 21:17 106 H Admit Weight 133 lb Weight 134 lb 11.2 oz - Physical Exam General: other (alarted but very slow response) Cardiac: irregularly regular Lungs: decreased breath sounds Extremities: no edema - Labs Result Diagrams: 10/07/19 21:56 10/07/19 21:56 Troponin/CKMB CK-MB (CK-2) 0.8 ng/mL (0-6.6) 10/04/19 09:55 Troponin I 0.069 ng/mL (< 0.028) H 10/04/19 16:40 - Telemetry Supraventricular conduction: atrial flutter - Assessment/Plan Assessment/Plan: 1. New onset Atrial flutter - Will increase coreg from 3.125mg to 6.25mg BID for elevated HR up to 110s this AM; On Lovenox 60mg BID; cont. medical tx only unless her HR is uncontrolled and possible LUCIEN/DCCV 2. HTN - Norvasc 5mg qd will be started from this AM; Also increase Coreg to 6.25mg BID from this AM; On Losartan 100mg qd and Imdur 60mg qd; May increase Imdur 3. Urosepsis - on IV ABX 4. CAD with hx of CABG - 5. DM type 2 6. Hx of CVA 7. Seizure 9. Hx of dementia MAR reviewed * Echo in 02/[address] ([address] Dr Sanchez' office) with EF 50-55%, mildly akinetic inferior wall, mild LAE, mild AR, MR, TR Pt. seen and eval. by me. I agree with the A/P by the BI LEAD.Still in atrial flutter. HR in the 90's at this time. Pt. being considered for hospice care. We are still trying to get the BP under better control. If the HR can not be controlled consistently then consider cardioversion. Probably will not advise LUCIEN due to Covid-19. She is at increased risk of further CVA if this is done but if the HR can not be controlled then this is an option.[email or web address]
[2019-10-09] MEDS ORDERED: Carvedilol 6.25 MG TAB PO SCH (08:15)
[2019-10-09] MEDS: Enoxaparin Sodium 60 MG/0.6 ML SYRINGE SC SCH ×2 (09:30→20:46)
[2019-10-09] MEDS: hydrALAZINE 25 MG TAB PO SCH ×3 (09:30→20:57)
[2019-10-09] MEDS: Losartan 25 MG TAB PO SCH (09:31)
[2019-10-09] MEDS: Nitroglycerin 2% Ointment 1 INCH/1 GM Packet TOP SCH ×3 (09:31→20:48)
[2019-10-09] MEDS: Aspirin 81 mg Enteric Coated Tablet PO SCH (09:32)
[2019-10-09] MEDS: Amlodipine 5 MG TAB PO SCH (09:32)
[2019-10-09] MEDS: Carbidopa/Levodopa CR 50-200 mg Tablet PO SCH (09:32)
[2019-10-09] MEDS: DorzolamidE/Timolol 2%/0.5% Ophth Soln 10 ml Bottle R EYE SCH ×2 (09:34→20:45)
[2019-10-09] MEDS: Brimonidine Tartrate 0.2% Ophth Soln 5 ml Bottle R EYE SCH ×3 (09:34→23:53)
[2019-10-09] MEDS: Carvedilol 3.125 MG TAB PO SCH (09:35)
--- NOTE | 2019-10-09 10:36 | PDOC.PALCO ---
Palliative Care Consult - Consult Details Requesting Physician: Dr Parisi Reason for Consult: goals of care, family support, complex decision-making Family Members Present: Phone call with Ms Irina HARRIS/Daughter of patient - Pertinent HPI 84 year old female who is a resident at [facility]. Totally dependent for all ADL's. Aphagic, incontinent. Bed/Gerichair bound. [facility] patient was noted to have increase in lethargy, and decrease in oral intake. Became bradycardic and EMS was called and patient transferred to [facility]. Initial evaluation in the emergency room identified UTI and atrial flutter with 3;1 heart block. COVID rule out, results negative. Dnar and OOHDNAR on chart. Daughter confirms continued decline of her mother. - Pertinent PMH Dementia, CAD, DM II, HTN, depression, diverticulosis, history of right CVA - Social History Smoking Status: Never smoker Smoking: no tobacco exposure Alcohol Use: none Drug Use History: none Living Situation: [facility] - Medications MAR Reviewed: Yes - Allergies Allergies/Adverse Reactions: Allergies Allergy/AdvReac Type Severity Reaction Status Date / Time No Known Allergies Allergy Verified 09/06/19 12:18 - Subjective Awake, aphagic. Makes eye contact. - ROS Non Response: due to mental status - Objective Vital Signs: Vital Signs - Most Recent Temp Pulse Resp BP Pulse Ox 98.9 F 113 H 22 H 175/75 H 97 10/09/19 08:00 10/09/19 09:32 10/09/19 08:00 10/09/19 09:58 10/09/19 08:00 Palliative Performance Scale: 20 - Advance Directives Medical Power of Direct Care Professional: Daughter Ivette Lilly [phone] - Physical Exam Constitutional: NAD, cachectic, encephalitic, ill appearing Deviation from normal: Clavicular wasting HEENT: EOMI, moist MMs, sclera anicteric Deviation from normal: Oral cavity full of food, patient not swallowing Respiratory: no wheezing, diminished lung sound Cardiovascular: irregular Gastrointestinal: incontinent Deviation from normal: Hypoactive bowel sounds, non tender Genitourinary: saenz catheter Musculoskeletal: no cyanosis, no clubbing, diffuse muscle atrophy Neurology: moves all 4 limbs Skin: no lesions, no rash Deviation from normal: Alert, unable to determine orientation - Problem List (1) Palliative care encounter Code(s): Z51.5 - ENCOUNTER FOR PALLIATIVE CARE Current Visit: Yes Status: Acute (2) Physical deconditioning Code(s): R53.81 - OTHER MALAISE Current Visit: Yes Status: Acute (3) Atrial flutter Code(s): I48.92 - UNSPECIFIED ATRIAL FLUTTER Current Visit: Yes Status: Acute (4) Encephalopathy Code(s): G93.40 - ENCEPHALOPATHY, UNSPECIFIED Current Visit: No Status: Acute (5) UTI (urinary tract infection) Current Visit: No Status: Acute Qualifiers: Urinary tract infection type: acute cystitis Hematuria presence: without hematuria Qualified Code(s): N30.00 - Acute cystitis without hematuria - Plan/Recommendations Plan: Assessed patient and reviewed records. Pocketing food/medications. Aphagic. Dr Burr does not feel Ms Wagner is a canidate for intervention. Patient with multiple morbidities and disease trajectory to decline. MPOA/ Daughter called by Palliative Care RN Lucero Chen and family meeting to discuss goal of care established for 1pm. Daughter states that he mother would not desire a PEG. Will discuss transition to hospice with diet with risk. Dr Parisi notified. Family meeting at 1pm 10/09/2019 [75] minutes spent on this encounter with >50% of the time in counseling and coordination of care. Thank you for this very appropriate consult.
[2019-10-09] MEDS ORDERED: Bisacodyl 10 MG SUPP PR PRN (11:01)
[2019-10-09] MEDS: BIOTENE MOUTH SPRAY 44.3 ML MM SCH ×2 (15:24→20:56)
--- NOTE | 2019-10-09 15:51 | PDOC.EP ---
- Subjective Date: 10/09/19 Time: 15:49 Interval History: No new symptoms. Pt is aphasic. - Review of Systems Constitutional: denies: chills, fever, malaise, sweats, weakness, other Respiratory: denies: cough, dry, hemoptysis, pleuritic pain, shortness of breath , SOB with excertion, sputum, wheezing, other Cardiology: denies: chest pain, edema, heart racing, light headedness, paroxysmal noc. dyspnea, orthopnea, palpitations, passing out, pleuritic pain, pressure, swelling, other - Objective Allergies/Adverse Reactions: Allergies Allergy/AdvReac Type Severity Reaction Status Date / Time No Known Allergies Allergy Verified 09/06/19 12:18 Current Medications Acetaminophen (Tylenol) 650 mg PO Q4H PRN PRN Reason: Headache/Fever/Mild Pain (1-3) Acetaminophen (Tylenol) 650 mg OK Q4H PRN PRN Reason: Headache/Fever/Mild Pain (1-3) Albuterol Sulfate (Proventil Hfa) 2 puff INH Q2H PRN PRN Reason: HR <30 Amlodipine Besylate (Norvasc) 5 mg PO DAILY [facility] Last Admin: 10/09/19 09:32 Dose: 5 mg Artificial Tears (Liquitears 15ml Bottle) 0 drop EA EYE BIDPRN PRN PRN Reason: Dry Eyes Aspirin (Ecotrin) 81 mg PO DAILY [facility] Last Admin: 10/09/19 09:32 Dose: 81 mg Atropine Sulfate (Atropine) 1 mg IVP Q6H PRN PRN Reason: for heart rate <40/min Bisacodyl (Dulcolax) 10 mg OK DAILYPRN PRN PRN Reason: Constipation Brimonidine Tartrate (Alphagan 0.2% Ophth Soln) 1 drop R EYE 0800,1600,2359 [facility] Last Admin: 10/09/19 09:34 Dose: 1 drop Carbidopa/Levodopa (Sinemet Cr 50/200) 2 tab PO DAILY [facility] Last Admin: 10/09/19 09:32 Dose: 2 tab Carvedilol (Coreg) 6.25 mg PO BID[facility] Dextrose/Water (Dextrose 50%) 25 gm SLOW IVP PRN PRN PRN Reason: Hypoglycemia Dorzolamide/Timolol (Cosopt 2-0.5% Ophth Soln) 1 drop R EYE BID [facility] Last Admin: 10/09/19 09:34 Dose: 1 drop Enalaprilat (Vasotec) 1.25 mg SLOW IVP Q6H [facility] Last Admin: 10/09/19 15:23 Dose: 1.25 mg Enoxaparin Sodium (Lovenox) 60 mg SC 0900,2100 [facility] Last Admin: 10/09/19 09:30 Dose: 60 mg Famotidine (Pepcid) 20 mg SLOW IVP Q12HR [facility] Last Admin: 10/09/19 09:32 Dose: 20 mg Glucagon (Glucagon) 1 mg IM PRN PRN PRN Reason: Hypoglycemia Hydralazine HCl (Apresoline) 100 mg PO TID [facility] Last Admin: 10/09/19 15:24 Dose: Not Given Hydralazine HCl (Apresoline) 10 mg SLOW IVP Q4H PRN PRN Reason: SBP GREATER THAN 160 Dextrose/Water (D5w) 1,000 mls @ 0 mls/hr IV .Q0M PRN PRN Reason: Hypoglycemia Sodium Chloride (Normal Saline 0.9%) 1,000 mls @ 50 mls/hr IV .Q20H [facility] Last Admin: 10/09/19 15:25 Dose: Not Given Levetiracetam 500 mg/ Device 100 mls @ 200 mls/hr IVPB BID [facility] Last Admin: 10/09/19 09:33 Dose: 100 mls Ceftriaxone Sodium 2 gm/ (Sodium Chloride) 100 mls @ 200 mls/hr IVPB Q24HR [facility] Last Admin: 10/08/19 18:20 Dose: 100 mls Insulin Human Lispro (Humalog) 0 units SC .MODERATE SLIDING SC PRN PRN Reason: Moderate Correctional Scale Isosorbide Mononitrate (Imdur) 60 mg PO DAILY [facility] Last Admin: 10/09/19 09:32 Dose: 60 mg Latanoprost (Xalatan 0.005% Ophth Soln) 1 drop R EYE HS [facility] Last Admin: 10/09/19 01:04 Dose: 1 drop Losartan Potassium (Cozaar) 100 mg PO DAILY [facility] Last Admin: 10/09/19 09:31 Dose: 100 mg Miscellaneous Medication (Biotene Moisturizing Mouth) 0 ml MM [id number] [facility] Last Admin: 10/09/19 15:24 Dose: 1 applic Nitroglycerin (Nitro-Bid 2% Ointment) 2 inch TOP TID [facility] Last Admin: 10/09/19 15:25 Dose: 2 inch Ondansetron HCl (Zofran) 4 mg IVP Q6H PRN PRN Reason: Nausea/Vomiting Ropinirole HCl (Requip) 0.25 mg PO TID [facility] Last Admin: 10/09/19 15:24 Dose: Not Given Sodium Chloride (Flush - Normal Saline) 10 ml IVF Q12HR [facility] Last Admin: 10/09/19 09:33 Dose: 10 ml Sodium Chloride (Flush - Normal Saline) 10 ml IVF PRN PRN PRN Reason: Saline Flush Vital Signs & Weight: Vital Signs Temp Pulse Resp BP BP Pulse Ox 10/09/19 15:24 124 H 10/09/19 13:00 124 H 129/72 10/09/19 11:51 98.3 F 95 16 186/94 H 97 10/09/19 09:58 175/75 H 10/09/19 09:32 113 H 175/75 H 10/09/19 09:30 113 H 10/09/19 08:00 98.9 F 113 H 22 H 154/113 H 97 10/09/19 04:45 88 Admit Weight 133 lb Weight 134 lb 11.2 oz I/O: I/O 10/08/19 10/09/19 10/10/19 06:59 06:59 06:59 Intake Total 700 1055 Output Total 325 300 Balance 375 755 - Quality Measures Condition: Atrial Fibrillation/Flutter (hx or current) (lovenox) - Chadsvasc Risk factors Hypertension: 1 Age >75: 2 Stroke/TIA/thrombo-embolism: 2 Female: 1 Risk Score: 6 - Labs Result Diagrams: 10/07/19 21:56 10/07/19 21:56 - EKG Interpretation EKG shows: Typical atrial flutter (Now good VR control.) - Assessment/Plan Assessment/Plan: 1. Newly found atrial flutter -initially with slow ventricular response now RVR requiring diltiazem gtt for support. 2. History of coronary artery disease with prior coronary artery bypass grafting surgery. a. History of preserved LVEF at 55% to 60%, mild MR, TR, possible patent foramen ovale, [id number] shunt, diastolic dysfunction on echo January 14, 2014. 3. Fever, lethargy, on COVID-19 rule out protocol. 4. 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 5. History of dementia. 6. History of type 2 diabetes. 7. Hypertension. 8. Chronic depression. 9. Diverticulosis history. 10. Chronic anemia 11. Deconditioning/failure to thrive Off diltiazem as this AM her HR dropped into the 30s. HR now stable in the 60- 70 bpm range. Overall she is in poor condition and would benefit from palliative care evaluation, possible hospice. I recommend conservative medical treatment for now. LUCIEN guided DCCV by cardiology could be considered if rate control cannot be achieved. On 10/09/19 Pt Continues in atrial flutter, but with adequate VR control. Continue Coreg 6.25 BID. Hospice isbeing considered. Agree with current management. Poor intervention candidate. EP would sign off. Thank you,
[2019-10-09] MEDS: Carvedilol 6.25 MG TAB PO SCH (17:46)
[2019-10-09] MEDS: cefTRIAXone\\ROCEPHIN 2 GM in Sodium Chloride 0.9% 100 ML IVPB SCH (17:46)
[2019-10-10] MEDS: Sodium Chloride 0.9% 1,000 ML IV SCH (01:51)
[2019-10-10] MEDS: Enalaprilat Dihydrate 1.25 MG/ML VIAL SLOW IVP SCH ×2 (01:52→09:03)
[2019-10-10] MEDS: hydrALAZINE 20 MG/ML VIAL SLOW IVP PRN (03:41)
[2019-10-10] MEDS ORDERED: cloNIDine 0.2mg/24 Hour PATCH TD SCH ×2 (07:45→09:00)
--- NOTE | 2019-10-10 08:43 | PDOC.CPN ---
- Subjective Date: 10/10/19 Time: 08:30 Interval history: The pt seen and examined. She is alerted and said "good morning" but no other words or follow any commands. - Objective Allergies/Adverse Reactions: Allergies Allergy/AdvReac Type Severity Reaction Status Date / Time No Known Allergies Allergy Verified 09/06/19 12:18 Visit Medications: Current Medications Acetaminophen (Tylenol) 650 mg PO Q4H PRN PRN Reason: Headache/Fever/Mild Pain (1-3) Acetaminophen (Tylenol) 650 mg MN Q4H PRN PRN Reason: Headache/Fever/Mild Pain (1-3) Albuterol Sulfate (Proventil Hfa) 2 puff INH Q2H PRN PRN Reason: HR <30 Amlodipine Besylate (Norvasc) 5 mg PO DAILY [facility] Last Admin: 10/09/19 09:32 Dose: 5 mg Artificial Tears (Liquitears 15ml Bottle) 0 drop EA EYE BIDPRN PRN PRN Reason: Dry Eyes Aspirin (Ecotrin) 81 mg PO DAILY [facility] Last Admin: 10/09/19 09:32 Dose: 81 mg Atropine Sulfate (Atropine) 1 mg IVP Q6H PRN PRN Reason: for heart rate <40/min Bisacodyl (Dulcolax) 10 mg MN DAILYPRN PRN PRN Reason: Constipation Brimonidine Tartrate (Alphagan 0.2% Ophth Soln) 1 drop R EYE 0800,1600,2359 [facility] Last Admin: 10/09/19 23:53 Dose: 1 drop Carbidopa/Levodopa (Sinemet Cr 50/200) 2 tab PO DAILY [facility] Last Admin: 10/09/19 09:32 Dose: 2 tab Carvedilol (Coreg) 6.25 mg PO BID[facility] Last Admin: 10/09/19 17:46 Dose: Not Given Clonidine (Zilrplvv-Euy-0) 0.2 mg TD Q7DAYS [facility] Dextrose/Water (Dextrose 50%) 25 gm SLOW IVP PRN PRN PRN Reason: Hypoglycemia Dorzolamide/Timolol (Cosopt 2-0.5% Ophth Soln) 1 drop R EYE BID [facility] Last Admin: 10/09/19 20:45 Dose: 1 drop Enalaprilat (Vasotec) 1.25 mg SLOW IVP Q6H [facility] Last Admin: 10/10/19 01:52 Dose: 1.25 mg Enoxaparin Sodium (Lovenox) 60 mg SC 0900,2100 [facility] Last Admin: 10/09/19 20:46 Dose: 60 mg Famotidine (Pepcid) 20 mg SLOW IVP Q12HR [facility] Last Admin: 10/09/19 20:42 Dose: 20 mg Glucagon (Glucagon) 1 mg IM PRN PRN PRN Reason: Hypoglycemia Hydralazine HCl (Apresoline) 100 mg PO TID [facility] Last Admin: 10/09/19 20:57 Dose: Not Given Hydralazine HCl (Apresoline) 10 mg SLOW IVP Q4H PRN PRN Reason: SBP GREATER THAN 160 Last Admin: 10/10/19 03:41 Dose: 10 mg Dextrose/Water (D5w) 1,000 mls @ 0 mls/hr IV .Q0M PRN PRN Reason: Hypoglycemia Sodium Chloride (Normal Saline 0.9%) 1,000 mls @ 50 mls/hr IV .Q20H [facility] Last Admin: 10/10/19 01:51 Dose: 1,000 mls Levetiracetam 500 mg/ Device 100 mls @ 200 mls/hr IVPB BID [facility] Last Admin: 10/09/19 20:53 Dose: 100 mls Ceftriaxone Sodium 2 gm/ (Sodium Chloride) 100 mls @ 200 mls/hr IVPB Q24HR [facility] Last Admin: 10/09/19 17:46 Dose: 100 mls Insulin Human Lispro (Humalog) 0 units SC .MODERATE SLIDING SC PRN PRN Reason: Moderate Correctional Scale Isosorbide Mononitrate (Imdur) 60 mg PO DAILY [facility] Last Admin: 10/09/19 09:32 Dose: 60 mg Latanoprost (Xalatan 0.005% Ophth Soln) 1 drop R EYE HS [facility] Last Admin: 10/09/19 20:44 Dose: 1 drop Losartan Potassium (Cozaar) 100 mg PO DAILY [facility] Last Admin: 10/09/19 09:31 Dose: 100 mg Miscellaneous Medication (Biotene Moisturizing Mouth) 0 ml MM [id number] [facility] Last Admin: 10/09/19 20:56 Dose: 1 applic Nitroglycerin (Nitro-Bid 2% Ointment) 2 inch TOP TID [facility] Last Admin: 10/09/19 20:48 Dose: 2 inch Ondansetron HCl (Zofran) 4 mg IVP Q6H PRN PRN Reason: Nausea/Vomiting Ropinirole HCl (Requip) 0.25 mg PO TID [facility] Last Admin: 10/09/19 20:57 Dose: Not Given Sodium Chloride (Flush - Normal Saline) 10 ml IVF Q12HR [facility] Last Admin: 10/09/19 20:57 Dose: 10 ml Sodium Chloride (Flush - Normal Saline) 10 ml IVF PRN PRN PRN Reason: Saline Flush Vital Signs & Weight: Vital Signs Temp Pulse Resp BP BP BP Pulse Ox 10/10/19 07:45 96.4 F L 90 16 186/114 H 100 10/10/19 07:34 100 10/10/19 04:16 104 H 197/90 H 10/10/19 03:41 90 218/100 H 10/10/19 03:30 97.6 F 85 15 218/100 H 100 10/10/19 01:52 212/96 H 10/10/19 00:26 97.7 F 89 18 172/66 H 100 10/09/19 20:57 98 Admit Weight 133 lb Weight 134 lb 11.2 oz - Physical Exam Cardiac: irregularly regular Lungs: decreased breath sounds Extremities: other: (generalized edema) - Labs Result Diagrams: 10/10/19 12:15 10/10/19 12:15 Troponin/CKMB CK-MB (CK-2) 0.8 ng/mL (0-6.6) 10/04/19 09:55 Troponin I 0.069 ng/mL (< 0.028) H 10/04/19 16:40 - Telemetry Supraventricular conduction: atrial flutter - Assessment/Plan Assessment/Plan: 1. New onset Atrial flutter - HR has been 90-100s; the pt cannot swallow medication due to dysphargia; On hospice 2. HTN - Will resume Clonidine 0.2mg patch (she was 0.3mg patch prior to this admission) since she cannot swallow due to dysphagia 3. Urosepsis - managed by PCP 4. CAD with hx of CABG - 5. DM type 2 6. Hx of CVA 7. Seizure 9. Hx of dementia MAR reviewed * Echo in 02/2019 (at Dr Sanchez' office) with EF 50-55%, mildly akinetic inferior wall, mild LAE, mild AR, MR, TR * the pt is most likely d/reji with Hospice today Pt. seen and eval. by me. I agree with the A/P by the NET FISHER. Chest clear. Regular rhythm with atrial flutter on the monitor. No edema. Poor prognosis.
[2019-10-10] MEDS: Famotidine/PF 20 mg/2ml Vial SLOW IVP SCH (08:55)
[2019-10-10] MEDS: Enoxaparin Sodium 60 MG/0.6 ML SYRINGE SC SCH (08:55)
[2019-10-10] MEDS: Nitroglycerin 2% Ointment 1 INCH/1 GM Packet TOP SCH (08:55)
[2019-10-10] MEDS: BIOTENE MOUTH SPRAY 44.3 ML MM SCH (08:56)
[2019-10-10] MEDS: DorzolamidE/Timolol 2%/0.5% Ophth Soln 10 ml Bottle R EYE SCH (08:56)
[2019-10-10] MEDS: Brimonidine Tartrate 0.2% Ophth Soln 5 ml Bottle R EYE SCH (08:56)
[2019-10-10] MEDS: Amlodipine 5 MG TAB PO SCH (08:57)
[2019-10-10] MEDS: Aspirin 81 mg Enteric Coated Tablet PO SCH (08:57)
[2019-10-10] MEDS: Carvedilol 6.25 MG TAB PO SCH (08:57)
[2019-10-10] MEDS: hydrALAZINE 25 MG TAB PO SCH (08:58)
[2019-10-10] MEDS: rOPINIRole HCl 0.25 MG TAB PO SCH (08:58)
[2019-10-10] MEDS: Losartan 25 MG TAB PO SCH (08:58)
[2019-10-10] MEDS: Carbidopa/Levodopa CR 50-200 mg Tablet PO SCH (08:58)
[2019-10-10 12:20] VITALS: BP 210/78; TEMP 97.1
[2019-10-10 12:22] LABS: Hemoglobin 13.2 g/dL (12.0-16.0); Platelet Count 184 thou/uL (130-400)
[2019-10-10 12:36] LABS: Calc. Creatinine Clearance 56 mL/min (70-130); Estimated GFR-MDRD Greater than 90
--- NOTE | 2019-10-11 00:12 | DIS ---
DATE OF ADMISSION: 10/04/2019 DATE OF DISCHARGE: 10/10/2019 DISCHARGE DIAGNOSES: 1. Sepsis secondary to urinary tract infection with Escherichia coli. 2. Acute metabolic encephalopathy secondary to #1. 3. Atrial flutter with bradycardia. 4. Advanced dementia. 5. Dysphagia/chronic aphasia. CONSULTATIONS: 1. Dr. Burr with Electrophysiology Service. 2. Dr. Sanchez with Cardiology Service. 3. Palliative Care Service. PERTINENT LABORATORY AND X-RAY FINDINGS: Potassium ranged between 3.0 to 4.4. Lactic acid level ranged between 1.7 to 3.4. Troponin I ranged between 0.069 to 0.103. BNP 454. TSH ranged between 0.30 to 0.33, free T3 level 2.39, free T4 level 1.27. CBC showed a hemoglobin ranging between 10.7 to 14.0. COVID-19 PCR not detected. Blood cultures x2 dated 10/04/2019, showed no growth at 5 days. Urine culture dated 10/04/2019, showed greater than 100,000 colonies of E coli species. Stool Hemoccult dated 10/04/2019, negative x1. Influenza A and B antigen dated 10/04/2019, negative. CT of the brain dated 10/04/2019, showed area of encephalomalacia and previously noted large right MCA territorial infarct. HOSPITAL COURSE: The patient initially presented with altered mental status, severe bradycardia, atrial flutter, and sepsis syndrome. The patient was initially noted with heart rates in the 30s to 40s with atrial flutter and 3:1 block. The patient was also noted with low-grade temperature and initiated on broad-spectrum IV antibiotic therapy including vancomycin and Zosyn after suspicion for urinary tract infection. The patient was also placed on isolation and ruled out for COVID-19. The patient received IV fluids. In addition, was evaluated by the Cardiology Service due to the atrial flutter and bradycardia. The patient was initially managed with atropine in the emergency room with increasing heart rate into the 60s. Electrophysiology consultation was obtained with recommendations for general medical management given the patient's multiple comorbid status, deconditioned state, and previous CVA. The patient was transitioned from atropine and monitored for recurrence of bradycardia. The patient continued on amlodipine and low-dose carvedilol with overall heart rates stabilizing throughout the remainder of the hospital course. The patient was noted with labile hypertension and initiated on a clonidine patch in addition to her previous blood pressure regimen. The patient also received IV Rocephin due to the E coli species noted on urine culture. The patient was evaluated by the Palliative Care Service after concern for dysphagia and aspiration. Discussions were had regarding placement of a PEG tube for adequate nutrition; however, the family decided to pursue palliative measures and comfort care with transition to hospice in the group home after discharge. I have examined the patient at the time of discharge and coordinated for transfer to [facility]. The patient ready for discharge, 10/10/2019. DISCHARGE MEDICATIONS: 1. Enteric-coated aspirin 81 mg p.o. daily. 2. Alphagan 0.2% one drop to the right eye q.8 hours. 3. Sinemet CR 50/200 mg 2 tablets p.o. daily. 4. Vitamin D3 5000 units p.o. daily. 5. Clonidine patch 0.2 mg transdermally weekly. 6. Dorzolamide/timolol one drop to the right eye b.i.d. 7. Ferrous sulfate 325 mg p.o. b.i.d. 8. Hydralazine 75 mg p.o. b.i.d. 9. Isosorbide mononitrate 60 mg p.o. daily. 10. Keppra 500 mg p.o. b.i.d. 11. Tradjenta 5 mg p.o. daily. 12. Cozaar 100 mg p.o. daily. 13. Carvedilol 6.25 mg p.o. b.i.d. 14. Mirtazapine 7.5 mg p.o. daily. FOLLOWUP: The patient will follow up with [facility] after return to [facility], 10/10/2019. CONDITION ON DISCHARGE: Guarded. ACTIVITY: Ad irene. DIET: Heart healthy. CODE STATUS: Do not attempt resuscitation. DISPOSITION: Discharged to [facility] with [facility], 10/10/2019. TIME SPENT: Total time preparing and coordinating discharge is 40 minutes. Job ID: [id number]
--- NOTE | 2019-10-11 06:41 | DIS ---
DATE OF ADMISSION: 10/04/2019 DATE OF DISCHARGE: 10/10/2019 ADMISSION DIAGNOSES: 1. Atrial flutter. 2. Urosepsis. 3. Encephalopathy. 4. Coronary artery disease. 5. Hyperlipidemia. 6. Hypertension. DISCHARGE DIAGNOSES: 1. Atrial flutter. 2. Urosepsis with E coli. 3. Metabolic encephalopathy. 4. CAD. 5. Urinary tract infection. 6. Hyperlipidemia. 7. Dementia. 8. Uncontrolled hypertension. HISTORY OF PRESENTING ILLNESS: This is an 84-year-old female, resident of a custodial, was brought in as she was found obtunded. The patient was found to be bradycardic and in atrial flutter with urinary tract infection, sepsis, and metabolic encephalopathy. The patient was admitted, and COVID test was done. The CT of the brain was obtained, which did not reveal any acute CVA. The patient subsequently was admitted, treated with IV fluids, and due to 3:1 block with atrial flutter and bradycardia, the patient was treated with 1 mg of atropine resulting in heart rate promptly coming back to 60s. Later COVID test came negative, and the patient's atrial flutter and hypertension were treated with oral medications here. Urine cultures came positive for E coli that was bartlett susceptible for antibiotics. The patient was treated with IV ceftriaxone through her stay here. The patient's history is significant for Parkinson disease, coronary artery disease, and CVA. The patient here declined rapidly and was not eating any food or was taking any medications. Palliative Care was consulted, and in discussion with the family, it was decided not to do any PEG tube. The medication here was adjusted to control atrial flutter with RVR and also uncontrolled hypertension. No drastic intervention due to advanced age and dementia of the patient. The patient was then discharged to the custodial with plan to offer hospice. Follow up with hospice. MEDICATIONS: As prescribed. ACTIVITY: As tolerated. 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 Job ID: [id number]
--- NOTE | 2019-10-11 14:50 | EKG ---
Test Reason : Blood Pressure : / mmHG Vent. Rate : 059 BPM Atrial Rate : 249 BPM P-R Int : 000 ms QRS Dur : 106 ms QT Int : 400 ms P-R-T Axes : -89 033 143 degrees QTc Int : 396 ms Atrial flutter with variable A-V block Possible Anteroseptal infarct , age undetermined Inferior injury pattern Consider right ventricular involvement in acute inferior infarct Abnormal ECG Confirmed by LIDIA SAMPSON [id number]), editorial clerk ARIAN IZQUIERDO ([id number]) on 10/11/2019 2:50:34 PM Referred By: Confirmed By:LIDIA SAMPSON
== END 2019-10-10 14:15 | disposition hospice, home (50) | DRG 871 ==
LOC: ERS 09:23 → 2SW 11:50
PROVIDERS: ADMIT Internal Medicine; ATTEND Family Medicine
PROC: 3E033XZ Introduction of Vasopressor into Peripheral Vein, Percutaneous Approach (ICD-10-PCS; principal; 2019-10-04)
PROC: 8E0ZXY6 Isolation (ICD-10-PCS; 2019-10-04)
DX: A41.51 Sepsis due to Escherichia coli [E. coli] (principal); Z66 Do not resuscitate; Z20.828 Contact with and (suspected) exposure to other viral communicable diseases; Z51.5 Encounter for palliative care; G93.41 Metabolic encephalopathy; R40.2122 Coma scale, eyes open, to pain, at arrival to emergency department; R40.2222 Coma scale, best verbal response, incomprehensible words, at arrival to emergency department; I69.354 Hemiplegia and hemiparesis following cerebral infarction affecting left non-dominant side; I48.92 Unspecified atrial flutter; N30.00 Acute cystitis without hematuria; I16.1 Hypertensive emergency; R47.01 Aphasia; R00.1 Bradycardia, unspecified; G30.9 Alzheimer's disease, unspecified; F02.80 Dementia in other diseases classified elsewhere, unspecified severity, without behavioral disturbance, psychotic disturbance, mood disturbance, and anxiety; I25.10 Atherosclerotic heart disease of native coronary artery without angina pectoris; E11.9 Type 2 diabetes mellitus without complications; I10 Essential (primary) hypertension; F32.9 Major depressive disorder, single episode, unspecified; Z96.653 Presence of artificial knee joint, bilateral; E78.5 Hyperlipidemia, unspecified; D64.9 Anemia, unspecified; R65.20 Severe sepsis without septic shock; R56.9 Unspecified convulsions; I08.3 Combined rheumatic disorders of mitral, aortic and tricuspid valves; R62.7 Adult failure to thrive; R13.10 Dysphagia, unspecified; Z95.1 Presence of aortocoronary bypass graft; Z90.49 Acquired absence of other specified parts of digestive tract; Z90.710 Acquired absence of both cervix and uterus; Z98.49 Cataract extraction status, unspecified eye; Z79.899 Other long term (current) drug therapy; Z79.82 Long term (current) use of aspirin; Z79.4 Long term (current) use of insulin; Z68.21 Body mass index [BMI] 21.0-21.9, adult; R40.2352 Coma scale, best motor response, localizes pain, at arrival to emergency department
CPT/HCPCS: 36415; 36416; 51701; 70450; 71045; 80048; 80053; 81003; 81015; 82140; 82274; 82330; 82550; 82553; 82565; 82728; 82803; 83605; 83615; 83735; 83880; 84439; 84443; 84481; 84484; 85014; 85018; 85025; 85049; 85300; 85362; 85379; 85384; 85610; 85730; 86140; 87040; 87077; 87086; 87186; 87635; 87804; 93005; 93970; 94640; 96361; 96365; 96375; 96376; A4353; J0360; J0461; J0692; J0696; J1250; J1650; J1940; J1953; J2543; J3370; J3490; J7050; J7611; S0028; U0002